=== PATIENT | male | born 1975 ===

== ENCOUNTER 2016-09-27 22:28 | Inpatient (IN) | payer MEDICAID, OTHER ==
[~2016-09-27] VITALS: Ht 182.9 cm; Wt 113.5 kg
[2016-09-27 22:54] VITALS: BP 111/74; PULSE 90; RESP 16; O2SAT 98
[2016-09-27] MEDS ORDERED: LISI10TA PO (22:55)
[2016-09-27] MEDS ORDERED: METF-496 PO (22:55)
[2016-09-27] MEDS ORDERED: BUPR1FIL3 (22:55)
[2016-09-27] MEDS ORDERED: CITA40TA13 PO (22:55)
[2016-09-27] MEDS ORDERED: INSU100V7 SUBQ (22:55)
[2016-09-27] MEDS ORDERED: 0.9% Sodium Chloride 1,000 ML IV SCH (23:39)
[2016-09-27] MEDS ORDERED: Ondansetron 2 mg/mL 2 mL Inj IVPUSH PRN (23:40)
[2016-09-27] MEDS ORDERED: Vancomycin Dose per Pharmacist XX SCH (23:40)
[2016-09-27] MEDS ORDERED: Alum-Mag Hydrox-Simeth 30 mL Suspension PO PRN (23:40)
[2016-09-27] MEDS ORDERED: Polyethylene Glycol (PEG) 17 Gm Powder PO PRN (23:40)
--- NOTE | 2016-09-27 23:46 | NUR ---
Admission Patient admitted to [facility] at 2240 as a transfer from [facility]. A&Ox3, [place], cooperative and appropriate with care. Patient oriented to room, call light, TV, and visiting hours. Admission documentation completed. Patient admitted with infected wounds and cellulitis of left lower extremity. Dressing in place from [facility] on arrival. Wound unwrapped and examined together with Dr. Rosales. Purulent drainage noted on gauze wrapping; patient has had prior amputation of left middle toe. Three current open areas noted on patient's left foot; see detailed documentation in patient flowsheets. Patient admits some reduced sensation in the left toes. Wounds dressed after exam with non adherent pads over the open areas, dry 4x4 gauze, and kerlix wrapping. Patient advised no weight bearing on the left foot. Continue to monitor.
[2016-09-28] VITALS (17 sets, daily range): BP systolic 93–118; BP diastolic 57–76; PULSE 66–98; RESP 14–20; O2SAT 95–100
[2016-09-28] MEDS ORDERED: Glucose 40% Oral Gel 15 Gm Tube PO PRN (00:10)
[2016-09-28] MEDS: 0.9% Sodium Chloride 1,000 ML IV SCH ×3 (00:52→19:39)
[2016-09-28] MEDS: Sodium Chloride LOK Flush 10 mL Syringe IVFLUSH SCH ×3 (00:52→16:30)
--- NOTE | 2016-09-28 00:53 | PCM.HPMED ---
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 Patient noticed a small friction blister on the plantar of his left foot 4 weeks ago, but it was not painful nor bothersome. However, the blister soon turns into a big ulcer and gets progressively worse. He also admits to a sudden onset swelling of the left second toe and ankle after work tonight. There is also a black area at the bottom of his second toe that he just noticed tonight. He only has mild-moderate pain from these. Patient denies fever, chills, nausea, vomiting, or headache. He admits to decreased sensation in the left foot. Patient reports similar symptoms in December 2015 when he was found to have osteomyelitis of the left third toe that required amputation. He works at a [employer] and has his feet wet most of the time. He does not have a PCP and does not know when his last A1c was. He just recently resumed the Lantus. He does not have a PCP and gets his prescription from [facility]. At [facility], patient was found to have an infected left foot and leukocytosis of 25.9. Otherwise, vital signs and labs were stable. Lactic acid. 1.1. XR of the left foot was done. No report available. Patient was given a dose of Zosyn at the ER there and was transferred to [facility] for infected wound and cellulitis of the left foot and lower extremity. Dr. Doll was contacted and will see the patient tomorrow. Review of Systems: A comprehensive review of systems was conducted with the patient and found to be negative except as above in the History of Present Illness. Allergies Coded Allergies: No Known Allergies (Unverified Allergy, 04/11/12) Home Medications Suboxone 8mg-2mg Film Citalopram 40mg daily Lantus 12 unit SQ HS - recently resumed Lisinopril 10mg PO daily - Patient reports to take whenever he remembers. Metformin 1000mg PO daily PMH Reports DM2. Denies HTN or any other medical issues. Surgical History Left third digit amputation by Dr. Park in 12/2015. Skin graft for testicular infection Family History Parents are healthy. All grandparents on both sides had DM. Social History Hx Alcohol Use: No Hx Substance Use: Yes (opiates; clean x1 year) Smoking Status: Never Smoker Living Arrangement: with Family Additional Information Patient works at a [employer] company in [place]. Good social support. Exam Vital Signs Vital Sign - Last Date Time Temp Pulse Resp B/P Pulse Ox O2 Delivery O2 Flow Rate FiO2 09/27/16 22:54 36.8 90 16 111/74 98 Room Air Exam General: No acute distress, well-developed, well-nourished, appropriately interactive HEENT: Normocephalic, atraumatic. External ears without defect. Pupils equal, round, and reactive to light and accommodation. Anicteric sclerae, moist conjunctivae, and no lid lag. Oropharynx free of erythema and cobble stoning with moist mucosa. Neck: Supple with full range of motion. No jugular venous distension. No bruits. No lymphadenopathy or thyromegaly. Cardiovascular: Regular rate and rhythm with no murmurs, rubs, or gallops appreciated Pulmonary: Clear to auscultation bilaterally with no crackles, wheezes, or rhonchi. Normal respiratory effort with no use of accessory muscles. Abdomen: Bowel tones present. Soft, nontender, nondistended. No hepatosplenomegaly or masses appreciated. Left lower extremity: Purulent, foul smelling drainage noted on gauze wrapping. Prior amputation of left middle toe. Large open ulcer, approximately 3.5cm length x 2cm width, at the plantar side of the 2nd-3rd metartarsal phalangeal joints. Small round raw area on the 1st MTP joint. On the dorsal side, there is necrotic tissue at the bottom of the second digit with severe swelling. Moderate nonpitting edema at the ankle. Large, warm erythematous patch at the anterior valentine. All the wounds are only mildly painful to the patient due to reduced sensation in the left lower extremity. Right LE: normal exam. Neurological: Cranial nerves grossly intact. Normal muscle strength, tone, and bulk. Reflexes, coordination, and sensory function within normal limits. Psychiatric: Normal mood and affect. Alert and oriented to person, place, and time. 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 1. Infected ulcer and cellulitis of the left foot, acute, present on admission, active. - Patient has leukocytosis of 25.9, but does not meet SIRS/sepsis criteria. Lactic acid 1.1. - Blood and wound cultures were collected at [facility]. Results pending. - Wound culture in 12/2015 was positive for MRSA. - Will continue Zosyn and add Vanco, dosing per pharmacy. - Consider consulting infectious disease for antibiotic guidance in the morning. - Continue to monitor vital signs and labs. 2. Possible osteomyelitis of the second digit of the left foot, acute, present on admission, active. - Dr. Doll was consulted and will see the patient in the morning. - NPO after midnight for possible surgery tomorrow. - IVF with NS at 100mls/hr. - No weight bearing on the left foot. - Pending XR report from [facility]. - Treat the infection with Zosyn and Vanco. 3. Diabetes Mellitus, Type 2, with peripheral nephropathy. Uncontrolled. Chronic. - Last A1c of 9.8 in 12/2015. Check A1c tomorrow. - Likely due to medication and diet noncompliance. - Hold home Metformin. - Medium correctional scale in the hospital. - Resume home Lantus 12 units HS. 4. Acute Kidney Injury, present on admission, active. - BUN 21 and Cr of 1.17. - IV fluid as above. - Avoid nephrotoxic med. - Hold home Lisinopril, which patient takes for renal protection. No history of HTN. 5. History of opioid abuse, presume stable. - Convert home Suboxone to Subutex. 6. Anxiety, chronic, presume stable. - Resume home Citalopram. CODE STATUS: FULL CODE Patient is admitted under inpatient status with expected length of stay greater than 2 midnights due to severity of presenting symptoms, risk of adverse event, and complexity of treatment plan. Pain Evaluation: Adequate Pain Control GI Prophylaxis: H2 rikc VTE Prophylaxis: SCDs Resuscitation Status: CPR: Attempt Resuscitation Attending Statement The patient was seen and examined together with Dr. Rosales on 09/27 and I agree with the history, exam and plan as outlined in the note above. Silvia Rosales DO Sep 28, 2016 00:53 Chase Downs MD Sep 28, 2016 03:42
[2016-09-28] MEDS ORDERED: Vancomycin Inj 2,000 MG in 0.9% Sodium Chloride 500 ML IV ONE (00:55)
[2016-09-28] MEDS: Piperacillin-Tazo 3.375 Gm Inj 3.375 GM in Dextrose 5% Minibag Plus 50 ML IV SCH ×3 (03:58→17:55)
--- NOTE | 2016-09-28 04:13 | PCM.CONPHA ---
Subjective Date of Service: Sep 28, 2016 Requesting Provider: Silvia Rosales DO Left foot ulcer Reason for Pharmacy Consult: Vancomycin Dosing Objective Vital Signs Date Time Temp Pulse Resp B/P Pulse Ox O2 Delivery O2 Flow Rate FiO2 09/27/16 22:54 36.8 90 16 111/74 98 Room Air Weight (Kilograms): 113.500 Height (Feet): 6 Height (Inches): 0.00 Assessment/Plan Assessment/Plan A: * Vancomycin dosing by pharmacy for 40 y/o diabetic man with left foot ulcer and cellulitis with possible osteomyelitis * He is also being started on Zosyn * Estimated CrCl is 110 mL/min (Cockcroft & Gault using AdjBW) based on SCr of 1.17 mg/dL on records from [facility] * Estimated vancomycin half-life is 7 hours and estimated vancomycin Vd is 79 liters P: * Gave the patient a vancomycin loading dose of 2000 mg IV once * Continue with vancomycin 1250 mg IV every 8 hours * Target a trough range of 15 - 20 mcg/mL * Drawing a trough level prior to the fourth dose Thank you. Pharmacy will continue to follow this patient. Connie Jaeger, PharmD Connie Jaeger Sep 28, 2016 04:13
[2016-09-28 05:21] LABS: BASOPHILS % (AUTO) 0.3 % (0-3); EOSINOPHILS % (AUTO) 2.8 % (0-5); MONOCYTES % (AUTO) 7.8 % (4-12); Mean Corpuscular Hemoglobin 25.1 pg (27.0-35.0); Mean Corpuscular Volume 76.4 fL (81-100); NEUTROPHILS % (AUTO) 77.3 % (40-74); Platelet Count 358 bil/L (150-400)
[2016-09-28] MEDS ORDERED: Propofol 10,000 mCg/mL 20 mL Inj ONE (06:58)
[2016-09-28] MEDS: Insulin LISPRO 300 Unit/3 mL Inj SUBQ SCH ×4 (08:00→22:52)
--- NOTE | 2016-09-28 08:00 | NUR ---
Meds held PO am meds held per Dr Doll order. pt NPO for procedure this am.
--- NOTE | 2016-09-28 08:11 | PCM.CHPPOD ---
Subjective Date of service Sep 28, 2016 History of Present Illness Patient reports a blister starting on the left foot 4 weeks ago, turning into an ulcer. Suddenly, 2 days ago, the swelling and odor started, spreading redness quickly up his left leg. He had fevers and nausea, presented to the ED at [facility] last night. They took Xrays, saw gas in the tissue, sent him over for a transfer and informed me that the patient will likely need surgical intervention. He states he feels better this morning, but has anxiety over losing more of his foot, since he lost his left 3rd toe due to osteomyelitis last December. Allergy Allergies: Coded Allergies: No Known Allergies (Unverified Allergy, 04/11/12) Medications Buprenorphine HCl/Naloxone HCl (Suboxone 8 mg-2 mg Sl Film) 1 Each Film Citalopram (Citalopram) 40 Mg Tablet 40 MG PO DAILY Insulin Glargine (Lantus U100 Insulin Vial) 100 Unit/Ml Vial 12 UNIT SUBQ HS Lisinopril (Lisinopril) 10 Mg Tablet 10 MG PO DAILY Metformin ER (Metformin ER) 1,000 Mg Tablet 1,000 MG PO DAILY Past Medical History Surgeries: Yes (toe amputation) Medical History: (1) Cellulitis and abscess (2) Chronic ulcer of left foot with necrosis of muscle (3) Diabetes mellitus type 2, uncontrolled, with complications Surgical History: Social History Hx Alcohol Use: No Hx Substance Use: Yes (opiates; clean x1 year) Smoking Status: Never Smoker Podiatry Consult Exam Vital Signs Vital Sign - Last Date Time Temp Pulse Resp B/P Pulse Ox O2 Delivery O2 Flow Rate FiO2 09/28/16 05:55 83 09/28/16 04:37 36.4 16 103/66 98 Room Air Intake and Output 09/27/16 09/27/16 09/28/16 Cumulative From/Thru 15:00 23:00 07:00 09/27/16 22:53 - 09/28/16 05:26 Intake Total 137 ml 137 ml Output Total 1000 ml 1000 ml Balance -863 ml -863 ml Intake Oral 137 ml 137 ml Output Urine Total 1000 ml 1000 ml Result Diagram: 09/28/16 0506 09/28/16 0506 Lab Test 09/28/16 05:06 White Blood Count 18.8th/mm3 (3.8-10.1) Red Blood Count 3.86mil/mm3 (4.40-5.80) Hemoglobin 9.7g/dL (13.8-17.2) Hematocrit 29.5% (41.0-50.0) Mean Corpuscular Volume 76.4fL (81-100) Mean Corpuscular Hemoglobin 25.1pg (27.0-35.0) Mean Corpuscular Hemoglobin Concent 32.9% (32.0-37.0) Red Cell Distribution Width 14.3% (12.3-15.4) Platelet Count 358bil/L (150-400) Neutrophils (%) (Auto) 77.3% (40-74) Lymphocytes (%) (Auto) 11.4% (14-46) Monocytes (%) (Auto) 7.8% (4-12) Eosinophils (%) (Auto) 2.8% (0-5) Basophils (%) (Auto) 0.3% (0-3) Sodium Level 133mEq/L (134-144) Potassium Level 4.1mEq/L (3.5-5.2) Chloride Level 101mEq/L (97-108) Carbon Dioxide Level 22mmol/L (18-29) Blood Urea Nitrogen 14mg/dL (6-20) Creatinine 0.76mg/dL (0.76-1.27) Estimat Glomerular Filtration Rate 121mL/min (>59) Glucose Level 198mg/dL (60-99) Lactic Acid Level 0.8mmol/L (0.4-2.0) Calcium Level 8.0mg/dL (8.5-10.1) Total Bilirubin 0.3mg/dL (0.0-1.2) Aspartate Amino Transf (AST/SGOT) 14U/L (0-50) Alanine Aminotransferase (ALT/SGPT) 14U/L (0-44) Alkaline Phosphatase 89U/L (25-150) Total Protein 7.3g/dL (6.4-8.4) Albumin 2.9g/dL (3.4-5.0) Procalcitonin 1.16ng/mL (0.00-0.08) Exam Lower Extremities: Left: Edema localized (lower leg and foot) Lower Extremity Pulses: Palpable: Left Dorsalis Pedis Left Posterior Tibal Right Dorsalis Pedis Right Posterior Tibal Podiatry WOUND : Wound Location/Description Two ulcerations on the plantar aspect of the left forefoot, 1st and 2nd metatarsal heads. 2nd met head ulcer probes through 1st webspace to dorsum with jenise wet gangrene at that level. Moderate malodor. The 2nd toe appears dorsally subluxed. Distal digit has delayed cap refill. Right distal 2nd toe ulcer is dry with periwound erythema. The toe is longer than adjacent toes with an avulsed toenail. Assessment & Plan Problems: (1) Cellulitis and abscess Plan: Patient has been NPO since midnight. I have consented him to incision and drainage, debridement of soft tissue and bone, possible 2nd toe amputation in the operating room today. This will be a 2-stage procedure. After today's I&D , there may be more to be done in 2-3 days, depending on tissue response. He states understanding. He is neuropathic. We will try to do this procedure with local and sedation. Status: Acute ICD Code: L03.90 (2) Diabetes mellitus type 2, uncontrolled, with complications Plan: Patient's limb salvage prognosis is poor due to inconsistent compliance with diabetes management. Future complications are extremely likely. His right 2nd toe has had a chronic ulcer for a long time. A partial amputation of that digit may be necessary as a preventive measure. I will make sure to order Xrays and decide if that will be addressed during the second stage of debridement on left foot. Status: Acute ICD Code: E11.8 VTE Prophylaxis: Glenys Dickens DPM Sep 28, 2016 08:11
[2016-09-28] MEDS ORDERED: Buprenorphine 2 mg SL Tablet SL SCH (08:30)
[2016-09-28] MEDS ORDERED: Lactated Ringer's 500 ML IV PRN (09:04)
[2016-09-28] MEDS ORDERED: Lactated Ringer's 1,000 ML IV SCH (09:04)
--- NOTE | 2016-09-28 09:04 | PCM.HPANE ---
Patient Data Surgeon Admitting Provider:Chase Downs MD Attending Provider:Chase Downs MD Primary Care Physician:Shiv Bruno MD Other Provider: Reason for Visit Left Foot Wound Ht/WT & BMI Height (Feet): 6 Height (Inches): 0.00 Weight (Kilograms): 113.500 Body Mass Index 33.89 Allergies Coded Allergies: No Known Allergies (Unverified Allergy, 04/11/12) Past Anesthesia History Anesthesia History: Denies:: Anesthesia Reactions Diabetes History Hx Diabetes?: Yes Current Bedside Blood Glucose: 157 MRSA MRSA: No Medications Hypertension Medication: Yes Home Meds Incl Beta Donaldo: No Reported Medications Insulin Glargine (Lantus U100 Insulin Vial)100 Unit/Ml Vial12 Unit SUBQ HS #1 VIAL Ref 0 09/27/16 Metformin ER 1,000 Mg Tablet1,000 Mg PO DAILY Ref 0 09/27/16 Lisinopril 10 Mg [id number] Mg PO DAILY 30 Days Ref 0 09/27/16 Citalopram 40 Mg [id number] Mg PO DAILY 30 Days Ref 0 09/27/16 Buprenorphine HCl/Naloxone HCl (Suboxone 8 mg-2 mg Sl Film)1 Each Film #7 09/27/16 History History of ENT Problems?: No Hx of Heart Problems?: Yes Cardiovascular History: Positive for:: Hypertension Denies:: Cardiac Surgery Chest Pain Congestive Heart Failure Edema Heart Murmur Irregular Heartbeat Pacemaker Thrombophlebitis Hx of Respiratory Problem?: No Hx Neurologic Problems?: No Hx of GI Problems?: No Hx of Problems?: No Male Hx: Denies:: Prostate Problems Scrotal Mass Testicular Surgery Other Skin Pertinent History: diabetic ulcers on feet; left foot current admission. Left middle toe amputated for prior wound. Hx Musculoskeletal Problems?: No Hx of Psycho/Social Problems?: Yes Psycho Social History: Positive for:: Anxiety Denies:: Bipolar Disorder Hx Depression Suicide Attempt Hx Surgeries?: Yes (toe amputation) Hx Any Other Health Problems?: Yes Other History: Positive for:: Hospitalization (toe amputation, diabetes; cellulitis of testicles) Denies:: Cancer Thyroid Disease History Blood Transfusions: Positive for:: Accept Blood Products? Denies:: Blood Transfuse Reaction Blood Transfusions Hx Diabetes: YesBedside Blood Glucose: 157 Hx Alcohol Use: NoHx Substance Use: Yes (opiates; clean x1 year) Smoking Status: Never Smoker Stop/Bang Treated for Sleep Apnea?: No Do You Have a CPAP Machine?: No S-Snoring: Do You Snore Loudly: No T-Tired: feel tired, fatigued: No O-Obsered: Observed not breath: No P-Blood Pressure: treated: Yes B- Body Mass Index > 35 kg/m2: No A- Age over 50: No N- Neck Large Circumference: No G- Gender Male: Yes LIDYA Total Score: 2 LIDYA Risk Assessment: Low Risk, <3 Yes Risk Assessment Category Category 1A: Patient has history of documented sleep apnea, and HAS NOT received any narcotic, sedative or anesthesia administration during this stay. Category 1B: Patient has history of documented sleep apnea, and HAS received any narcotic , sedative or anesthesia administration during this stay Category 2: Patient has SUSPECTED Obstructive Sleep Apnea, and HAS received any narcotic , sedative or anesthesia administration during this stay. Category 3: Patient has SUSPECTED Obstructive Sleep Apnea and HAS NOT received narcotic, sedative or anesthesia administration during this stay. Category 4: Outpatient in Procedural Areas with known sleep apnea or who screen positive for High Risk via the STOP/BANG questionnaire. Exam Exam Vital Signs Vital Signs Date Time Temp Pulse Resp B/P Pulse Ox O2 Delivery O2 Flow Rate FiO2 09/28/16 08:44 36.4 82 18 118/68 100 Room Air 09/28/16 05:55 83 09/28/16 04:37 36.4 77 16 103/66 98 Room Air General Appearance: Oriented X3 HEENT/AIRWAY: MP 2 Lungs: Normal Air Movement Heart: Regular Rate/Rhythm Meds/Labs/Diagnostics Admission Meds Current Medications Piperacillin Sod/ Tazobactam Sod 3.375 gm/Dextrose/ Water 50 ml @ 12.5 mls/hr Q8 IV Last administered on 09/28/16 08:44; Start 09/28/16 at 01:00 Sodium Chloride (Normal Saline) 1,000 ml @ 100 mls/hr Q10H IV Last administered on 09/28/16 00:52; Start 09/27/16 at 23:39 Sodium Chloride 10 ml 10 ml MELECIO IVFLUSH Last administered on 09/28/16 00:52; Start 09/28/16 at 00:30 Vancomycin HCl/ Sodium Chloride (Vancocin Inj/ Normal Saline) 500 ml @ 250 mls/ hr OT ONCE IV Last administered on 09/28/16t 01:33; Start 09/28/16 at 00:55; Stop 09/28/16 at 02:54; Status DC Bedside Blood Glucose: 157 Labs Test 09/28/16 05:06 White Blood Count 18.8th/mm3 (3.8-10.1) Red Blood Count 3.86mil/mm3 (4.40-5.80) Hemoglobin 9.7g/dL (13.8-17.2) Hematocrit 29.5% (41.0-50.0) Mean Corpuscular Volume 76.4fL (81-100) Mean Corpuscular Hemoglobin 25.1pg (27.0-35.0) Mean Corpuscular Hemoglobin Concent 32.9% (32.0-37.0) Red Cell Distribution Width 14.3% (12.3-15.4) Platelet Count 358bil/L (150-400) Neutrophils (%) (Auto) 77.3% (40-74) Lymphocytes (%) (Auto) 11.4% (14-46) Monocytes (%) (Auto) 7.8% (4-12) Eosinophils (%) (Auto) 2.8% (0-5) Basophils (%) (Auto) 0.3% (0-3) Sodium Level 133mEq/L (134-144) Potassium Level 4.1mEq/L (3.5-5.2) Chloride Level 101mEq/L (97-108) Carbon Dioxide Level 22mmol/L (18-29) Blood Urea Nitrogen 14mg/dL (6-20) Creatinine 0.76mg/dL (0.76-1.27) Estimat Glomerular Filtration Rate 121mL/min (>59) Glucose Level 198mg/dL (60-99) Lactic Acid Level 0.8mmol/L (0.4-2.0) Calcium Level 8.0mg/dL (8.5-10.1) Total Bilirubin 0.3mg/dL (0.0-1.2) Aspartate Amino Transf (AST/SGOT) 14U/L (0-50) Alanine Aminotransferase (ALT/SGPT) 14U/L (0-44) Alkaline Phosphatase 89U/L (25-150) Total Protein 7.3g/dL (6.4-8.4) Albumin 2.9g/dL (3.4-5.0) Procalcitonin 1.16ng/mL (0.00-0.08) Plan Impression Patient chart reviewed, patient interviewed and anesthestic plan with risks, benefits, and alternatives discussed, and informed consent obtained. ASA Physical Status: ASA3 Severe Disease Anesthetic Plan: GA Bene/Risks/Altern/Consents: Yes HP Complete Prior to Induction: Yes Javier Kovacs MD Sep 28, 2016 09:04
[2016-09-28] MEDS ORDERED: Labetalol 5 mg/mL 4 mL Inj IV PRN (09:05)
[2016-09-28] MEDS ORDERED: MetoCLOpramide 5 mg/mL 2 mL Inj IVPUSH PRN (09:05)
[2016-09-28] MEDS ORDERED: fentaNYL-PF 50 mCg/mL 2 mL Inj IVPUSH PRN (09:05)
[2016-09-28] MEDS ORDERED: Phenylephrine 10,000 mCg/mL Inj IVPUSH PRN (09:05)
[2016-09-28] MEDS ORDERED: EPHEDrine Sulfate 50 mg/mL Inj IVPUSH PRN (09:05)
[2016-09-28] MEDS ORDERED: HYDROmorphone 1 mg/mL Inj IVPUSH PRN (09:05)
[2016-09-28] MEDS ORDERED: Ondansetron 2 mg/mL 2 mL Inj IVPUSH PRN (09:05)
[2016-09-28] MEDS ORDERED: Dexamethasone 4 mg/mL Inj IVPUSH PRN (09:05)
[2016-09-28] MEDS ORDERED: Lactated Ringer's 1,000 ML IV ONE (09:12)
[2016-09-28] MEDS ORDERED: Lidocaine 1% 50 mL Inj INFILTRATE ONE (09:22)
[2016-09-28] MEDS ORDERED: Gentamicin 40 mg/mL 2 mL Inj IRRIGATION ONE (09:41)
--- NOTE | 2016-09-28 10:02 | PCM.PODPO ---
Podiatry Operative Report Date of Service: Sep 28, 2016 Date of Service Sep 28, 2016 Pre Operative Diagnosis Cellulitis and abscess, left foot Post Operative Diagnosis Wet gangrene, left foot with full necrosis of 2nd toe medial vasculature and plantar ligamentous support structures. Procedure Open amputation, left 2nd toe, at metatarsophalangeal joint and wide debridement of dorsal and plantar soft tissue. Surgeon Surgeon: Glenys Doll DPM Assistants: None Indication for Procedure Gangrene, ascending necrosis, left foot Findings Gas gangrene, medial 1st interspace necrosis and vessel thrombosis, left foot. Unclear demarcation. All resected margins bled well. Details of Procedure Patient was identified in preop holding area and brought to the operating room. He was placed on the operating table in supine position. The timeout protocol was completed, left foot anesthetized with lidocaine plain, then prepped and draped in the usual aseptic manner. The 2nd toe was found to be necrotic medially and proximally, as well as through the 1st intermetatarsal space. A linear incision was made from the base of the toe, dorsally and proximally, bubbly purulent fluid encountered with significant odor. The incision was carried proximally until the purulence and medial necrosis became bleeding tissue. Suction was used distally to follow the area of soft tissue destruction from the dorsum of the toe, through the interspace and encompassing the plantar ulceration under the 2nd metatarsal head. The plantar plate was already ruptured , medial collateral ligaments of the metatarsophalangeal joint were necrotic. The 2nd metatarsal head cartilage cap appeared healthy. Excision of all necrotic skin, soft tissue, tendon, and capsule was done at the level of the 2nd metatarsal head. All thrombosed vessels were excised. The wound was irrigated with normal saline with gentamicin. The wound was cauterized where active bleeding was present, then packed with Iodoform gauze, dressed with 4x4 gauze, Kerlix, ABD pad, and Juanjo wrap. The patient tolerated the anesthesia and procedure well. He was transported to the recovery room with vital signs stable and vascular status to left foot intact. Grafts, Implants: None Complications There were no periprocedural complications identified. Condition Stable Anesthetic Administered: MAC Drains: None Catheters: None Output, Estimated Blood Loss: 20 (ml) Blood Admin during surgery: No Surgical Cast or Splint: None Surgical Specimen Removed: Yes Specimen sent to Pathology: Yes Surgical Specimen description: 2nd toe to pathology, soft tissue for culture. Post Operative Plan Nonweightbearing, left foot. Bedrest. 2nd stage of debridement and partial closure in 2-3 days. Expect hospital stay and IV antibiotics for 1 week. Gauge outpatient antibiotic treatment based on findings in next 2-3 days. Glenys Doll DPM Sep 28, 2016 10:02
--- NOTE | 2016-09-28 10:19 | PCM.ANEP1 ---
Post Anesthesia Phase 1 PACU Phase 1 Assessment Date of Service: Sep 28, 2016 Vital Signs Vital Signs Date Time Temp Pulse Resp B/P Pulse Ox O2 Delivery O2 Flow Rate FiO2 09/28/16 09:55 36.0 78 14 117/74 95 Room Air 09/28/16 08:44 36.4 82 18 118/68 100 Room Air 09/28/16 05:55 83 09/28/16 04:37 36.4 77 16 103/66 98 Room Air Anesthetic Administered: MAC Level of Alertness: Awake, talking Pain: No Nausea or Vomiting: No Oxygen Delivery: Room Air Lungs: Normal Air Movement Javier Kovacs MD Sep 28, 2016 10:19
--- NOTE | 2016-09-28 10:20 | PCM.ANEP2 ---
Post Anesthesia Evaluation ASA/CMS Post Anesthesia VS in Patient's Normal Range?: Yes Resp Stable; Airway Patent?: Yes CV Function & Hydration Stable: Yes Mental Status Recovered?: Yes Pain control Satisfactory?: Yes N/V Control Satisfactory?: Yes Javier Kovacs MD Sep 28, 2016 10:20
--- NOTE | 2016-09-28 11:53 | NUR ---
Social Work: Screen D: Per EMR review, pt is a 40 year old male admitted for Left Foot Wound. Pt is [facility] Medicaid with [facility]. Pt does not have a PCP but is insterested in an [facility] Appointment- Pt provided with phone number to call on Friday in case discharged over the weekend. NOK is pt's father, Acosta Brown. Advanced directives not completed- information declined. Readmit score not entered at this time. EMR reviewed; pt lives in [place] with family. 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 Pt uses no DME and is I. Pt has a history of IV heroin use and is currently on Suboxone. [employer] M[employer] TECHNICIAN met with pt at bedside to discuss discharge planning. Pt expresses no concerns about discharge home. Pt states he has been sober from heroin for over a year and gets Suboxone prescribed from [facility] in [facility]. His counselor is Tres Laboy who is also through [facility]. He has an appointment the first week of October. Pt declined community resources from [employer] TECHNICIAN stating he is already connected with the services he requires. Pt denies any MH history including suicidal or homicidal ideation, current or past. A: Pt who is I at baseline. P: anticipate pt to discharge home via POV; BL[employer] M[employer] TECHNICIAN to r/o DME needs prior to d/c. STACEY Reyna
[2016-09-28] MEDS: Vancomycin Inj 1,250 MG in 0.9% Sodium Chloride 250 ML IV SCH ×2 (13:04→22:21)
--- NOTE | 2016-09-28 14:27 | DRSVH ---
PROCEDURE: X-RAY RIGHT FOOT COMPLETE, MINIMUM THREE VIEWS ([id number]) INDICATIONS: Chronic ulcer, tip of 2nd toe, possible osteo TECHNIQUE: 3 views of the foot were acquired. COMPARISON: None. FINDINGS: Bones: There are erosive changes along the distal cortex of the 2nd distal phalanx with associated m ild lucency consistent with osteomyelitis. There is bony irregularity medially at the base of the 2n d proximal phalanx likely representing sequela of prior trauma. Soft tissues: There is a soft tissue ulcer distally in the 2nd toe. IMPRESSION: 1. Erosive changes in the 2nd distal phalanx consistent with osteomyelitis associated with a soft ti ssue ulcer distally. Dictated by: Shiv Nicole M.D. on 09/28/2016 at 14:23 Approved by: Shiv Nicole M.D. on 09/28/2016 at 14:24
--- NOTE | 2016-09-28 14:28 | DRSVH ---
PROCEDURE: X-RAY LEFT FOOT COMPLETE, MINIMUM THREE VIEWS ([id number]) INDICATIONS: Postop exam TECHNIQUE: 3 views of the foot were acquired. COMPARISON: [facility], CR, XR FOOT 3VW LT, 11/06/2015, 13:54. FINDINGS: Bones: There are postsurgical changes status post amputation of the 2nd and 3rd toes at the level of the metatarsophalangeal joints. No acute fractures. Soft tissues: There is soft tissue swelling at the forefoot and well as packing material demonstrated in the surgical bed. IMPRESSION: 1. Postsurgical changes status post amputation of the 2nd and 3rd toes. Dictated by: Shiv Nicole M.D. on 09/28/2016 at 14:25 Approved by: Shiv Nicole M.D. on 09/28/2016 at 14:26
--- NOTE | 2016-09-28 18:52 | PCM.PNMED ---
Subjective Date of Service Sep 28, 2016 Subjective This morning patient states he is feeling fine. Has no complaints other than the pain in his foot only when it is touched. Denies shortness of breath, lightheadedness, dizziness, fevers, chills. Exam Vital Signs Vital Sign - Last Date Time Temp Pulse Resp B/P Pulse Ox O2 Delivery O2 Flow Rate FiO2 09/28/16 16:44 36.6 98 18 107/69 98 Room Air Intake and Output 09/27/16 09/27/16 09/28/16 Cumulative From/Thru 15:00 23:00 07:00 09/27/16 22:53 - 09/28/16 05:26 Intake Total 137 ml 137 ml Output Total 1000 ml 1000 ml Balance -863 ml -863 ml Intake Oral 137 ml 137 ml Output Urine Total 1000 ml 1000 ml Exam General: No acute distress, well-developed, well-nourished, appropriately interactive HEENT: Normocephalic, atraumatic. External ears without defect. Pupils equal, round, and reactive to light and accommodation. Anicteric sclerae, moist conjunctivae, and no lid lag. Oropharynx free of erythema and cobble stoning with moist mucosa. Neck: Supple with full range of motion. No jugular venous distension. No bruits. No lymphadenopathy or thyromegaly. Cardiovascular: Regular rate and rhythm with no murmurs, rubs, or gallops appreciated Pulmonary: Clear to auscultation bilaterally with no crackles, wheezes, or rhonchi. Normal respiratory effort with no use of accessory muscles. Abdomen: Bowel tones present. Soft, nontender, nondistended. No hepatosplenomegaly or masses appreciated. Extremities: There is surgical bandage on the left lower extremity, calf is remained exposed, there is outline demarcating cellulitic process, but has remained uncrossed. Right LE: normal exam. Neurological: Cranial nerves grossly intact. Normal muscle strength, tone, and bulk. Reflexes, coordination, and sensory function within normal limits. Psychiatric: Normal mood and affect. Alert and oriented to person, place, and time. Lab and Diagnostics Result Diagram: 09/28/16 0506 09/28/16 0506 X-Rays, CTs and MRIs Pre-and post operative x-rays left lower extremity. IMPRESSION: 1. Postsurgical changes status post amputation of the 2nd and 3rd toes. Dictated by: Sihv Nicole M.D. on 09/28/2016 at 14:25 IMPRESSION: 1. Erosive changes in the 2nd distal phalanx consistent with osteomyelitis associated with a soft tissue ulcer distally. Dictated by: Shiv Nicole M.D. 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 Status post left lower extremity second digit amputation 09/28/2016. 1. Infected ulcer and cellulitis of the left foot, acute, present on admission, active. - Patient has leukocytosis of 25.9, but does not meet SIRS/sepsis criteria. Lactic acid 1.1. - Blood and wound cultures were collected at [facility] [place]. Results pending. - Wound culture in 12/2015 was positive for MRSA. - Will continue Zosyn and add Vanco, dosing per pharmacy. - Consider consulting infectious disease for antibiotic guidance should cellulitis signs of infection not improve - Continue to monitor vital signs and labs. 2. Wet gangrene of the second digit of the left foot, full necrosis, vessel thrombosis. Acute, present on admission. - Dr. Doll performed amputation 09/28/2016, revisit operating room in 2-3 days for secondary debridement, anticipate one week IV antibiotics. - IVF with NS at 100mls/hr. - No weight bearing on the left foot. - Treat the infection with Zosyn and Vanco. 3. Diabetes Mellitus, Type 2, with peripheral nephropathy. Uncontrolled. Chronic. - Last A1c of 9.8 in 12/2015. A1c Pending. - Likely due to medication and diet noncompliance. - Hold home Metformin. - Medium correctional scale in the hospital. - Resume home Lantus 12 units HS. 4. Acute Kidney Injury, present on admission, resolved - BUN and creatinine have returned to baseline. - IV fluid as above. - Restart home Lisinopril, which patient takes for renal protection. No history of HTN. 5. History of opioid abuse, presume stable. - Convert home Suboxone to Subutex. -Increased from 8 mg to 12 mg for postop pain coverage. -Avoid opioid analgesics 6. Anxiety, chronic, presume stable. - Resume home Citalopram. CODE STATUS: FULL CODE Patient is admitted under inpatient status with expected length of stay greater than 2 midnights due to severity of presenting symptoms, risk of adverse event, and complexity of treatment plan. Pain Evaluation: Adequate Pain Control GI Prophylaxis: H2 rick VTE Prophylaxis: SCDs VTE Mechanical Devices: Intermittant Pneumatic CD Resuscitation Status: CPR: Attempt Resuscitation Attending Statement The patient was seen and examined together with Dr. Barton on 09/28/2016 and I agree with the history, exam and plan as outlined in the note above. . Az Barton DO Sep 28, 2016 18:52 Joey Miramontes MD Sep 29, 2016 17:59
--- NOTE | 2016-09-28 19:14 | NUR ---
Left foot pain Pt complaining of pain after surgery wanting his Subutex. Scheduled Subutex given after procedure. through the day pt stating "i'm okay" when asked about pain in foot. Ongoing care.
[2016-09-28] MEDS: Insulin GLARgine 100 Unit/mL Syringe SUBQ SCH (22:50)
[2016-09-29] MEDS: Sodium Chloride LOK Flush 10 mL Syringe IVFLUSH SCH ×3 (00:30→16:30)
[2016-09-29] MEDS ORDERED: Vancomycin Serum Trough XX ONE (01:30)
[2016-09-29] MEDS: Piperacillin-Tazo 3.375 Gm Inj 3.375 GM in Dextrose 5% Minibag Plus 50 ML IV SCH ×3 (02:33→17:07)
--- NOTE | 2016-09-29 02:40 | NUR ---
Culture Results from [facility] [place] from [facility] [place] Re: patient's blood cultures and wound culture done prior to his transfer yesterday. Blood cultures showed no growth x2 at 24 hours. Wound culture from left foot wound showed moderate growth of Strep B.
[2016-09-29] MEDS ORDERED: Vancomycin Inj 1,500 MG in 0.9% Sodium Chloride 500 ML IV SCH (03:00)
[2016-09-29] MEDS: 0.9% Sodium Chloride 1,000 ML IV SCH ×2 (03:04→15:39)
--- NOTE | 2016-09-29 03:24 | PCM.PHAPRO ---
Progress Date of Service: Sep 29, 2016 Vancomycin dosing by pharmacy for 40 y/o diabetic man with left foot ulcer and cellulitis O: * He was receiving vancomycin 1250 mg IV every 8 hours * Vancomycin level of 11.8 mcg/mL prior to the fourth dose * The two doses prior to the trough were given later than scheduled * SCr of 0.76 mg/dL on 09/28 * UOP of 2050 mL on 09/28 * Cultures pending A: * The true trough at the current vancomycin dose would be lower than 11.8 mcg/ mL as preceding doses were given late * SCr has improved * The patient is clearing vancomycin better than originally anticipated P: * Increase vancomycin dose to 1500 mg every 8 hours * Continue targeting vancomycin trough range of 15 - 20 mcg/mL for now * Draw another trough level after 4 doses Thank you. Pharmacy will continue to follow. Connie Jaeger, PharmD Connie Jaeger Sep 29, 2016 03:23
[2016-09-29 04:07] VITALS: BP 125/71; PULSE 65; RESP 18; O2SAT 98
[2016-09-29 05:45] LABS: BASOPHILS % (AUTO) 0.5 % (0-3); EOSINOPHILS % (AUTO) 4.4 % (0-5); MONOCYTES % (AUTO) 8.6 % (4-12); Mean Corpuscular Hemoglobin 24.4 pg (27.0-35.0); Mean Corpuscular Volume 76.1 fL (81-100); NEUTROPHILS % (AUTO) 63.6 % (40-74); Platelet Count 379 bil/L (150-400)
[2016-09-29] MEDS: Vancomycin Inj 1,500 MG in 0.9% Sodium Chloride 500 ML IV SCH ×3 (06:28→21:32)
[2016-09-29] MEDS: Insulin LISPRO 300 Unit/3 mL Inj SUBQ SCH ×3 (08:41→22:00)
[2016-09-29] MEDS: Buprenorphine 2 mg SL Tablet SL SCH (08:42)
[2016-09-29 08:52] VITALS: BP 120/83; PULSE 75; RESP 18; O2SAT 99
[2016-09-29] MEDS ORDERED: Glucose 40% Oral Gel 15 Gm Tube PO PRN (12:30)
--- NOTE | 2016-09-29 15:45 | PCM.PNPOD ---
Subjective Date of Service: Sep 29, 2016 Visit Information: Reason for Visit Left Foot Wound Surgery/Surgery Date: Open 2nd toe amputation at MTPJ level with planned 2nd stage in 2-3 days Post-Op Day # 1 Date of Admission: Sep 27, 2016 at 22:45 Subjective: Patient seen at bedside, resting comfortably. No complaints. He has been using a handheld urinal at bedside, staying off of his left foot. Gastrointestinal: Good Appetite Pain Management: PO, Good Pain Control Neurological: Numbness (peripheral neuropathy at baseline) Objective Vital Sign - Last Date Time Temp Pulse Resp B/P Pulse Ox O2 Delivery O2 Flow Rate FiO2 09/29/16 08:52 36.7 75 18 120/83 99 Room Air Intake and Output 09/28/16 09/28/16 09/29/16 Cumulative From/Thru 15:00 23:00 07:00 09/27/16 22:53 - 09/29/16 06:30 Intake Total 100 ml 1903 ml 1325 ml 3465 ml Output Total 40 ml 1350 ml 1200 ml 3590 ml Balance 60 ml 553 ml 125 ml -125 ml Intake Oral 500 ml 400 ml 1037 ml IV Total 100 ml 1403 ml 925 ml 2428 ml Output Urine Total 1350 ml 1200 ml 3550 ml Estimated Blood Loss 40 ml 40 ml Result Diagram: 09/29/16 0500 09/29/16 0500 Lab Test 09/28/16 05:06 09/29/16 01:30 09/29/16 05:00 Hemoglobin A1c 8.9% (4.8-5.6) Lactic Acid Level 0.8mmol/L (0.4-2.0) Total Bilirubin 0.3mg/dL (0.0-1.2) Aspartate Amino Transf (AST/SGOT) 14U/L (0-50) Alanine Aminotransferase (ALT/SGPT) 14U/L (0-44) Alkaline Phosphatase 89U/L (25-150) Total Protein 7.3g/dL (6.4-8.4) Albumin 2.9g/dL (3.4-5.0) Procalcitonin 1.16ng/mL (0.00-0.08) Vancomycin Level Trough 11.8mcg/mL White Blood Count 8.8th/mm3 (3.8-10.1) Red Blood Count 3.97mil/mm3 (4.40-5.80) Hemoglobin 9.7g/dL (13.8-17.2) Hematocrit 30.2% (41.0-50.0) Mean Corpuscular Volume 76.1fL (81-100) Mean Corpuscular Hemoglobin 24.4pg (27.0-35.0) Mean Corpuscular Hemoglobin Concent 32.1% (32.0-37.0) Red Cell Distribution Width 14.3% (12.3-15.4) Platelet Count 379bil/L (150-400) Neutrophils (%) (Auto) 63.6% (40-74) Lymphocytes (%) (Auto) 22.6% (14-46) Monocytes (%) (Auto) 8.6% (4-12) Eosinophils (%) (Auto) 4.4% (0-5) Basophils (%) (Auto) 0.5% (0-3) Sodium Level 136mEq/L (134-144) Potassium Level 4.4mEq/L (3.5-5.2) Chloride Level 103mEq/L (97-108) Carbon Dioxide Level 23mmol/L (18-29) Blood Urea Nitrogen 10mg/dL (6-20) Creatinine 0.77mg/dL (0.76-1.27) Estimat Glomerular Filtration Rate 120mL/min (>59) Glucose Level 149mg/dL (60-99) Calcium Level 8.5mg/dL (8.5-10.1) Diagnostics Erosive changes in the right 2nd distal phalanx consistent with osteomyelitis associated with a soft tissue ulcer distally. Clean amputation at 2nd met head, no further gas in tissue, left foot. Exam Lungs: Normal Air Movement Lower Extremities: Left: Edema localized (lower leg and foot, improving steadily) Lower Extremity Pulses: Palpable: Left Dorsalis Pedis Left Posterior Tibal Right Dorsalis Pedis Right Posterior Tibal Podiatry WOUND : Wound Location/Description Open amputation, left 2nd toe. Wound spans 12cm x 5cm and 3cm deep. Metatarsal head is exposed and prominent, but appears viable. Plantar 1st metatarsal head ulcer is stable, 1.5cm x 1.5cm in size, 0.1cm deep. Distal right 2nd toe ulcer is scabbed over and spans the entire nailbed. Surgical Cast or Splint: None Assessment & Plan Problems: (1) Cellulitis and abscess Plan: Wet gangrene with extensive soft tissue necrosis led to amputation of 2nd toe yesterday and packed open. It was repacked and redressed today in anticipation of metatarsal head resection, Wound VAC placement, and delayed closure. Patient will be NPO after midnight in anticipation of further OR time tomorrow to place the Wound VAC and attempt delayed haling of this large defect for limb salvage. Status: Acute ICD Code: L03.90 (2) Diabetes mellitus type 2, uncontrolled, with complications Plan: Patient's limb salvage prognosis is poor due to inconsistent compliance with diabetes management. Future complications are extremely likely. Status: Acute ICD Code: E11.8 (3) Osteomyelitis of toe of right foot Plan: At the time of Wound VAC placement tomorrow, the patient's right 2nd toe will be debrided at the distal tip to remove the infected distal phalanx and excise the nailbed with primary closure. Status: Acute ICD Code: M86.9 VTE Prophylaxis: Glenys Dickens DPM Sep 29, 2016 15:45
[2016-09-29 16:11] VITALS: BP 112/75; PULSE 67; RESP 20; O2SAT 97
--- NOTE | 2016-09-29 17:31 | PCM.PNMED ---
Subjective Date of Service Sep 29, 2016 Subjective Patient states he is doing well this morning. His pain is well controlled. He denies fever, chills. He has no complaints to offer at this time. [place] [facility] [place] that were [place]. No other remarkable events. Exam Vital Signs Vital Sign - Last Date Time Temp Pulse Resp B/P Pulse Ox O2 Delivery O2 Flow Rate FiO2 09/29/16 16:11 36.6 67 20 112/75 97 Room Air Intake and Output 09/28/16 09/28/16 09/29/16 Cumulative From/Thru 15:00 23:00 07:00 09/27/16 22:53 - 09/29/16 06:30 Intake Total 100 ml 1903 ml 1325 ml 3465 ml Output Total 40 ml 1350 ml 1200 ml 3590 ml Balance 60 ml 553 ml 125 ml -125 ml Intake Oral 500 ml 400 ml 1037 ml IV Total 100 ml 1403 ml 925 ml 2428 ml Output Urine Total 1350 ml 1200 ml 3550 ml Estimated Blood Loss 40 ml 40 ml Exam General: No acute distress, well-developed, well-nourished, appropriately interactive HEENT: Normocephalic, atraumatic. External ears without defect. Pupils equal, round, and reactive to light and accommodation. Anicteric sclerae, moist conjunctivae, and no lid lag. Oropharynx free of erythema and oral thrush with moist mucosa. Neck: Supple with full range of motion. No jugular venous distension. Cardiovascular: Regular rate and rhythm with no murmurs, rubs, or gallops appreciated Pulmonary: Clear to auscultation bilaterally with no crackles, wheezes, or rhonchi. Normal respiratory effort with no use of accessory muscles. Abdomen: Normoactive bowel tones present. Soft, nontender, nondistended. Extremities: No cyanosis, clubbing, or edema noted. Radial and posterior tibial pulses present and equivalent bilaterally. Skin: left foot covered with post-surgical bandages that appear clean, dry and intact Neurological: Cranial nerves grossly intact. Normal muscle strength, tone, and bulk. Reflexes, coordination, and sensory function within normal limits. Psychiatric: Normal mood and affect. Alert and oriented to person, place, and time. IVs and Medications Medications Reviewed: Medications were reviewed in detail Lab and Diagnostics Result Diagram: 09/29/16 0500 09/29/16 0500 X-Rays, CTs and MRIs Pre-and post operative x-rays left lower extremity. IMPRESSION: 1. Postsurgical changes status post amputation of the 2nd and 3rd toes. Dictated by: Shiv Nicole M.D. on 09/28/2016 at 14:25 IMPRESSION: 1. Erosive changes in the 2nd distal phalanx consistent with osteomyelitis associated with a soft tissue ulcer distally. Dictated by: Shiv Nicole M.D. 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 Status post left lower extremity second digit amputation 09/28/2016. Hospital day 2 1. Infected ulcer and cellulitis of the left foot, acute, present on admission, active. - Wound culture growing group B strep. - Will continue Zosyn and add Vancomycin dosing per pharmacy. Day 2 of antibiotics. - Plan to consult Dr. Domingo of infectious disease to refine antibiotic choices and define length of antibiotic treatment on 09/30/16. 2. Wet gangrene of the second digit of the left foot, full necrosis, vessel thrombosis. Acute, present on admission. - Dr. Doll performed amputation 09/28/2016, revisit operating room tomorrow for secondary debridement and possible wound vac placement. - IVF with NS at 100mls/hr as patient to be NPO after midnight. - No weight bearing on the left foot. - Antibiotics as above in #1. 3. Diabetes Mellitus, Type 2, with peripheral nephropathy. Uncontrolled. Chronic. - A1c 8.9 this admission. - Likely due to medication and diet noncompliance. - Hold home Metformin. - High dose correctional scale in the hospital. - Continue Lantus 12 units HS. 4. Acute Kidney Injury, present on admission, resolved - Resolve with IV hydration. Presume secondary to fluid depletion. - Continue lisinopril 10 mg daily. - Continue to monitor BMP. 5. History of opioid abuse, presume stable. - Continue subutex 12 mg for postop pain coverage. Home dose suboxone is 8 mg SL. - Avoid opioid analgesics. 6. Anxiety, chronic, presume stable. - Continue citalopram 40 mg daily. - Antiemetic available PRN. - Antacid available PRN. - Bowel regimen available PRN. - Tylenol available PRN mild pain, fever. Disposition: dependent upon Dr. Doll's plans to possibly return to the OR. Pain Evaluation: Adequate Pain Control GI Prophylaxis: H2 rick VTE Prophylaxis: SCDs Resuscitation Status: CPR: Attempt Resuscitation Attending Statement The patient was seen and examined together with Dr. Grimm on 09/29/2016 and I agree with the history, exam and plan as outlined in the note above. . Hailey Grimm DO Sep 29, 2016 17:31 Joey Miramontes MD Sep 29, 2016 17:59
--- NOTE | 2016-09-29 18:18 | NUR ---
No c/o pain pt had no c/o of pain through day shift. Pt made aware to be NPO after midnight. Pt verbalized understanding.
[2016-09-29 20:16] VITALS: BP 132/75; PULSE 80; RESP 16; O2SAT 96
[2016-09-29] MEDS: Insulin GLARgine 100 Unit/mL Syringe SUBQ SCH (22:16)
[2016-09-30] VITALS (8 sets, daily range): BP systolic 100–112; BP diastolic 56–75; PULSE 56–96; RESP 12–17; O2SAT 96–100
[2016-09-30] MEDS: Sodium Chloride LOK Flush 10 mL Syringe IVFLUSH SCH ×4 (00:30→22:36)
[2016-09-30] MEDS: Piperacillin-Tazo 3.375 Gm Inj 3.375 GM in Dextrose 5% Minibag Plus 50 ML IV SCH ×2 (01:08→08:36)
[2016-09-30] MEDS: 0.9% Sodium Chloride 1,000 ML IV SCH ×3 (01:08→22:51)
[2016-09-30 04:32] LABS: BASOPHILS % (AUTO) 1.1 % (0-3); EOSINOPHILS % (AUTO) 5.6 % (0-5); MONOCYTES % (AUTO) 9.9 % (4-12); Mean Corpuscular Hemoglobin 24.8 pg (27.0-35.0); Mean Corpuscular Volume 76.2 fL (81-100); NEUTROPHILS % (AUTO) 56.7 % (40-74); Platelet Count 416 bil/L (150-400)
[2016-09-30 05:16] LABS: Magnesium 1.7 mg/dL (1.6-2.6); Phosphorus 3.6 mg/dL (2.5-4.9)
[2016-09-30] MEDS: Vancomycin Inj 1,500 MG in 0.9% Sodium Chloride 500 ML IV SCH ×4 (05:38→13:55)
--- NOTE | 2016-09-30 05:45 | NUR ---
Pain/Rest Patient denies pain in his left foot. Left foot remains wrapped with no drainage apparent on the dressings. Sleeping soundly for the majority of the night. NPO after midnight for return to OR this morning. Continue to monitor.
[2016-09-30] MEDS: Insulin LISPRO 300 Unit/3 mL Inj SUBQ SCH ×4 (08:00→20:26)
[2016-09-30] MEDS: Buprenorphine 2 mg SL Tablet SL SCH (08:33)
[2016-09-30] MEDS ORDERED: Lidocaine PF 1% 30 mL Inj ONE (11:29)
[2016-09-30] MEDS ORDERED: Propofol 10,000 mCg/mL 20 mL Inj ONE (11:29)
[2016-09-30] MEDS ORDERED: Lactated Ringer's 1,000 ML IV SCH (12:09)
[2016-09-30] MEDS ORDERED: Lactated Ringer's 500 ML IV PRN (12:09)
--- NOTE | 2016-09-30 12:09 | PCM.HPANE ---
Patient Data Date of Service: Sep 30, 2016 Surgeon Admitting Provider:Chase Downs MD Attending Provider:Chase Downs MD Primary Care Physician:Shiv Bruno MD Other Provider: Reason for Visit Left Foot Wound Ht/WT & BMI Height (Feet): 6 Height (Inches): 0.00 Weight (Kilograms): 113.500 Body Mass Index 33.89 Allergies Coded Allergies: No Known Allergies (Unverified Allergy, 04/11/12) Past Anesthesia History Anesthesia History: Denies:: Anesthesia Reactions Diabetes History Hx Diabetes?: Yes Current Bedside Blood Glucose: 122 MRSA MRSA: No Medications Hypertension Medication: Yes Home Meds Incl Beta Donaldo: No Reported Medications Insulin Glargine (Lantus U100 Insulin Vial)100 Unit/Ml Vial12 Unit SUBQ HS #1 VIAL Ref 0 09/27/16 Metformin ER 1,000 Mg Tablet1,000 Mg PO DAILY Ref 0 09/27/16 Lisinopril 10 Mg [id number] Mg PO DAILY 30 Days Ref 0 09/27/16 Citalopram 40 Mg [id number] Mg PO DAILY 30 Days Ref 0 09/27/16 Buprenorphine HCl/Naloxone HCl (Suboxone 8 mg-2 mg Sl Film)1 Each Film #7 09/27/16 History History of ENT Problems?: No Hx of Heart Problems?: Yes Cardiovascular History: Positive for:: Hypertension Denies:: Cardiac Surgery Chest Pain Congestive Heart Failure Edema Heart Murmur Irregular Heartbeat Pacemaker Thrombophlebitis Hx of Respiratory Problem?: No Hx Neurologic Problems?: No Hx of GI Problems?: No Hx of Problems?: No Male Hx: Denies:: Prostate Problems Scrotal Mass Testicular Surgery Other Skin Pertinent History: diabetic ulcers on feet; left foot current admission. Left middle toe amputated for prior wound. Hx Musculoskeletal Problems?: No Hx of Psycho/Social Problems?: Yes Psycho Social History: Positive for:: Anxiety Denies:: Bipolar Disorder Hx Depression Suicide Attempt Hx Surgeries?: Yes (toe amputation) Hx Any Other Health Problems?: Yes Other History: Positive for:: Hospitalization (toe amputation, diabetes; cellulitis of testicles) Denies:: Cancer Thyroid Disease History Blood Transfusions: Positive for:: Accept Blood Products? Denies:: Blood Transfuse Reaction Blood Transfusions Hx Diabetes: YesBedside Blood Glucose: 122 Hx Alcohol Use: NoHx Substance Use: Yes (opiates; clean x1 year) Smoking Status: Never Smoker Stop/Bang Treated for Sleep Apnea?: No Do You Have a CPAP Machine?: No S-Snoring: Do You Snore Loudly: No T-Tired: feel tired, fatigued: No O-Obsered: Observed not breath: No P-Blood Pressure: treated: Yes B- Body Mass Index > 35 kg/m2: No A- Age over 50: No N- Neck Large Circumference: No G- Gender Male: Yes LIDYA Total Score: 2 LIDYA Risk Assessment: Low Risk, <3 Yes Risk Assessment Category Category 1A: Patient has history of documented sleep apnea, and HAS NOT received any narcotic, sedative or anesthesia administration during this stay. Category 1B: Patient has history of documented sleep apnea, and HAS received any narcotic , sedative or anesthesia administration during this stay Category 2: Patient has SUSPECTED Obstructive Sleep Apnea, and HAS received any narcotic , sedative or anesthesia administration during this stay. Category 3: Patient has SUSPECTED Obstructive Sleep Apnea and HAS NOT received narcotic, sedative or anesthesia administration during this stay. Category 4: Outpatient in Procedural Areas with known sleep apnea or who screen positive for High Risk via the STOP/BANG questionnaire. Low Risk, <3 Yes Exam Exam Vital Signs Vital Signs Date Time Temp Pulse Resp B/P Pulse Ox O2 Delivery O2 Flow Rate FiO2 09/30/16 08:22 36.2 72 17 112/75 100 Room Air General Appearance: Alert, Oriented X3, Cooperative HEENT/AIRWAY: MP 3, Neck Movement, Mouth Opening (Wide) Lungs: Clear to Auscultation, Normal Air Movement Heart: Regular Rate/Rhythm, Normal S1, Normal S2 Meds/Labs/Diagnostics Admission Meds Current Medications Miscellaneous (Vancomycin Serum Trough) VANCOMYCIN TROUGH PER PHARMACY ONCE ONCE XX Last administered on 09/30/16 11:55; Start 09/30/16 at 12:30; Stop at 12:31 Insulin Human Lispro (HumaLOG Insulin Inj) Nutritional Dose to be given pr... [facility] SUBQ Last administered on 09/29/16 17:11; Start 09/29/16 at 17:30 Lisinopril (Zestril) 10 mg DAILY PO Last administered on 09/30/16 08:33; Start 09/30/16 at 08:30 Bedside Blood Glucose: 122 Labs Test 09/28/16 05:06 09/29/16 01:30 09/30/16 04:01 Hemoglobin A1c 8.9% (4.8-5.6) Lactic Acid Level 0.8mmol/L (0.4-2.0) Total Bilirubin 0.3mg/dL (0.0-1.2) Aspartate Amino Transf (AST/SGOT) 14U/L (0-50) Alanine Aminotransferase (ALT/SGPT) 14U/L (0-44) Alkaline Phosphatase 89U/L (25-150) Total Protein 7.3g/dL (6.4-8.4) Albumin 2.9g/dL (3.4-5.0) Procalcitonin 1.16ng/mL (0.00-0.08) Vancomycin Level Trough 11.8mcg/mL White Blood Count 6.6th/mm3 (3.8-10.1) Red Blood Count 4.16mil/mm3 (4.40-5.80) Hemoglobin 10.3g/dL (13.8-17.2) Hematocrit 31.7% (41.0-50.0) Mean Corpuscular Volume 76.2fL (81-100) Mean Corpuscular Hemoglobin 24.8pg (27.0-35.0) Mean Corpuscular Hemoglobin Concent 32.5% (32.0-37.0) Red Cell Distribution Width 14.2% (12.3-15.4) Platelet Count 416bil/L (150-400) Neutrophils (%) (Auto) 56.7% (40-74) Lymphocytes (%) (Auto) 25.3% (14-46) Monocytes (%) (Auto) 9.9% (4-12) Eosinophils (%) (Auto) 5.6% (0-5) Basophils (%) (Auto) 1.1% (0-3) Sodium Level 135mEq/L (134-144) Potassium Level 4.1mEq/L (3.5-5.2) Chloride Level 102mEq/L (97-108) Carbon Dioxide Level 21mmol/L (18-29) Blood Urea Nitrogen 9mg/dL (6-20) Creatinine 0.71mg/dL (0.76-1.27) Estimat Glomerular Filtration Rate 131mL/min (>59) Glucose Level 154mg/dL (60-99) Calcium Level 8.6mg/dL (8.5-10.1) Phosphorus Level 3.6mg/dL (2.5-4.9) Magnesium Level 1.7mg/dL (1.6-2.6) C-Reactive Protein 5.4mg/dL (0.0-0.5) Plan Impression Patient chart reviewed, patient interviewed and anesthestic plan with risks, benefits, and alternatives discussed, and informed consent obtained. NPO Status: 0000 28 SEP 2016 ASA Physical Status: ASA3 Severe Disease Anesthetic Plan: MAC Bene/Risks/Altern/Consents: Yes HP Complete Prior to Induction: Yes Jay Mike MD Sep 30, 2016 12:09
[2016-09-30] MEDS ORDERED: Labetalol 5 mg/mL 4 mL Inj IV PRN (12:10)
[2016-09-30] MEDS ORDERED: Atropine 0.4 mg/mL Inj IVPUSH PRN (12:10)
[2016-09-30] MEDS ORDERED: Dexamethasone 4 mg/mL Inj IVPUSH PRN (12:10)
[2016-09-30] MEDS ORDERED: EPHEDrine Sulfate 50 mg/mL Inj IVPUSH PRN (12:10)
[2016-09-30] MEDS ORDERED: Ondansetron 2 mg/mL 2 mL Inj IVPUSH PRN (12:10)
[2016-09-30] MEDS ORDERED: fentaNYL-PF 50 mCg/mL 2 mL Inj IVPUSH PRN (12:10)
[2016-09-30] MEDS ORDERED: Phenylephrine 10,000 mCg/mL Inj IVPUSH PRN (12:10)
[2016-09-30] MEDS ORDERED: MetoCLOpramide 5 mg/mL 2 mL Inj IVPUSH PRN (12:10)
[2016-09-30] MEDS ORDERED: Vancomycin Serum Trough XX ONE ×2 (12:30→20:30)
[2016-09-30] MEDS ORDERED: Lactated Ringer's 1,000 ML IV ONE (12:33)
[2016-09-30] MEDS ORDERED: Lidocaine PF 1% 30 mL Inj NERVEBLOCK ONE (12:50)
--- NOTE | 2016-09-30 13:33 | PCM.PODPO ---
Podiatry Operative Report Date of Service: Sep 30, 2016 Date of Service Sep 30, 2016 Pre Operative Diagnosis Open 2nd toe amputation, left foot, wet gangrene in second stage of debridement Osteomyelitis, distal phalanx, right 2nd toe Post Operative Diagnosis Open 2nd toe amputation, left foot, wet gangrene in second stage of debridement Osteomyelitis, distal phalanx, right 2nd toe Procedure Left 2nd metatarsal head resection and placement of Wound VAC. Right distal 2nd phalanx bone debridement. Surgeon Surgeon: Glenys Doll DPM Assistants: None Indication for Procedure Gangrene, ascending necrosis, left foot Osteomyelitis, right 2nd toe Findings Viable soft tissue and bone after further debridement today. Details of Procedure Patient was identified in preop holding area and brought to the operating room. He was placed on the operating table in supine position. The timeout protocol was completed, left foot and right 2nd toe anesthetized with lidocaine plain, then prepped and draped in the usual aseptic manner. The right 2nd toe ulcer was found to be necrotic centrally, probing through the nailbed to the underlying bone. Two converging curvilinear incision were made on the dorsum of the distal 2nd toe to excise the nailbed and the underlying bone. The original ulcer was 0.7cm wide and 0.4cm long, 0.3cm deep. After debridement of skin, subcutaneous tissue, and bone, the final wound was 1cm x 0.6cm and 0.6cm deep. After excision, the wound was irrigated and edges reapproximated with 3-0 Prolene. The dressing consisted of Xeroform, gauze, and Coban bridget-taped to the 3rd toe. The left 2nd toe amputation wound was explored, any loose appearing non-viable tissue excised, the 2nd metatarsal head resected and the wound was irrigated with normal saline. The wound was cauterized where active bleeding was present, then dressed Black Granufoam, Wound VAC drape, and trac pad attached to the negative pressure machine at 125mmHg continuous negative pressure with a minimal leak detected around the remaining toes. The whole foot was wrapped with a Kerlix and Juanjo wrap. The patient tolerated the anesthesia and procedure well. He was transported to the recovery room with vital signs stable and vascular status to left foot intact. Grafts, Implants: None Complications There were no periprocedural complications identified. Condition Stable Anesthetic Administered: MAC Drains: Wound Vac Catheters: None Output, Estimated Blood Loss: 20 (ml) Blood Admin during surgery: No Surgical Cast or Splint: None Surgical Specimen Removed: No Specimen sent to Pathology: Yes Post Operative Plan Nonweightbearing, left foot. Bedrest. Expect hospital stay and IV antibiotics for 1 week. Gauge outpatient antibiotic treatment based on findings in next 2-3 days.Wound VAC expected to be needed for 2 weeks after discharge. Glenys Doll DPM Sep 30, 2016 13:33
--- NOTE | 2016-09-30 13:43 | PCM.ANEP1 ---
Post Anesthesia Phase 1 PACU Phase 1 Assessment Date of Service: Sep 30, 2016 Vital Signs Vital Signs Date Time Temp Pulse Resp B/P Pulse Ox O2 Delivery O2 Flow Rate FiO2 09/30/16 08:22 36.2 72 17 112/75 100 Room Air Anesthetic Administered: MAC Level of Alertness: Awake, talking HOOVER's with Equal Strength: Yes Pain: No Nausea or Vomiting: No Oxygen Delivery: Room Air Lungs: Normal Air Movement Jay Mike MD Sep 30, 2016 13:43
--- NOTE | 2016-09-30 13:44 | PCM.ANEP2 ---
Post Anesthesia Evaluation ASA/CMS Post Anesthesia Date of Service: Sep 30, 2016 VS in Patient's Normal Range?: Yes Resp Stable; Airway Patent?: Yes CV Function & Hydration Stable: Yes Mental Status Recovered?: Yes Pain control Satisfactory?: Yes N/V Control Satisfactory?: Yes Jay Mike MD Sep 30, 2016 13:44
--- NOTE | 2016-09-30 13:45 | NUR ---
Operating Room, Transfer to [facility] Operating Room - He left for the Operating Room at 1155 via gurney with the wound vac, vancomycin piggy-back bag, and hard chart. Report called to Yelena ODONNELL in the OR. Transfer to [facility] - It was determined that after his procedure he would transfer to [facility] 250-2. Report called to Grace ODONNELL in [facility]. His belongings and medications were taken to his new room. His , who had been waiting in [facility] for him was shown to his new room.
[2016-09-30] MEDS: cefTRIAXone Inj 2,000 MG in Dextrose 5% Minibag Plus 50 ML IV SCH (17:28)
[2016-09-30] MEDS ORDERED: Morphine PF 1 mg/mL 10 mL Inj IVPUSH PRN (17:35)
[2016-09-30] MEDS ORDERED: HYDROmorphone 1 mg/mL Inj IVPUSH PRN (17:40)
--- NOTE | 2016-09-30 19:19 | CONS ---
[address] [address] CONSULTATION REPORT PATIENT: NEGRA MACDONALD : 1975 MR#: [id number] ADMIT: 09/27/2016 JOB ID: [id number] DATE OF SERVICE: 09/30/2016 REASON FOR CONSULTATION: Severe diabetic foot infection requiring amputation of a toe. I thank Dr. Doll for this timely consult. HISTORY OF PRESENT ILLNESS: The patient is a 40-year-old gentleman with longstanding diabetes which is treated with both metformin and insulin on a daily basis. He also has a history of heroin smoking in the past, but has never done it intravenously. Underlying other problems include hypertension. 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 In any event, the patient reports that about four weeks ago he got a blister on his left foot which gradually worsened until he had a jenise ulcer there with erythema. He then started to have spreading erythema up his left leg and went to [facility]. X-rays there suggested the possibility of osteomyelitis, and so it was recommended the patient be sent over here and admitted and he came over on the . Dr. Doll evaluated the patient after his transfer to this facility and took him to the operating room. It was notable that the patient had already lost the third toe and the second toe appeared very involved. It was also noted at the time of his evaluation that he had a chronic ulcer over the right distal 2nd toe. Accordingly, the patient was taken to the operating room by Dr. Doll on the morning of the . At that time, the left second toe was found to be completely necrotic and there was extension into the 1st intermetatarsal space. Purulent material with odor was found. All necrotic tissue including the second toe was excised and a wound VAC was placed. In addition, the patient was taken back to the operating room this morning where the left second toe and metatarsal head was additionally cleaned up and the right second toe was additionally debrided and dressed. The patient reports that throughout this illness he has been relatively asymptomatic except for the swelling and pain starting around his left second toe and the adjacent tissues with progression of his left lower extremity. He has not had significant fevers, chills, or sweats despite this impressive infection of his left greater than his right second toe. PAST MEDICAL HISTORY: 1. Diabetes mellitus with relatively poor control. 2. Hypertension. 3. History of inhaling or smoking heroin and now on Suboxone. 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 He does not drink alcohol. He quit using heroin 53 weeks ago and has never been a cigarette smoker. He lives with his family in [place]. FAMILY HISTORY: Negative for tuberculosis in first-degree relatives. REVIEW OF SYSTEMS: Was done. Today, the patient has no headache, visual complaints, sore throat, cough, shortness of breath, chest pain nausea, vomiting, or diarrhea. He has no dysuria. He does have some pain, not surprisingly, in his left 2nd foot at the site of the wound VAC as well as in his right distal 2nd toe where he had a partial amputation over the past few days. He has noted no skin rash and notes that he does not have a sensory neuropathy. Remainder of the review of systems is negative. PHYSICAL EXAMINATION: Reveals an afebrile, comfortable gentleman sitting in his hospital bed. Temp 36.4, pulse of 58, respiratory rate 16, blood pressure 112/67. He is saturating well on room air. Examination of the mental status reveals it to be completely clear. His head is without trauma. Eyes without scleral icterus or conjunctivitis. Oral cavity without thrush or pharyngitis. Neck is supple without adenopathy. Lungs quite clear bilaterally. Cardiac tones: Regular rate and rhythm. Abdomen: A bit obese, soft and nontender. He does not have a Lozada catheter. He does not have inguinal adenopathy. His left foot has a large dressing present over it which I did not remove as he just had surgery this morning. A wound VAC protrudes out from under the dressing and is reported to cover the second metatarsal head area. His right second toe was also just debrided this morning and has a much smaller dressing over it which I had also did not remove as it was just placed in the OR, and I was concerned about bleeding. He does have intact pulses and capillary refill in the visible portions of his feet. I do not see any other ulcers. He does not have a sensory neuropathy and has intact motor strength throughout. LABORATORIES: Include white count 19,000 when he came in, now down to 6000 with 6% eosinophils. Platelet count 416, creatinine 0.71, CRP 5.4, and that is a baseline that we have just ordered. Micro studies include group B strep growing from the foot. We do not yet have susceptibilities and no anaerobes are growing. We also have a second organism here which is a strep viridans and we await the formal identification of that. In looking at his prior culture results, we do not have any old cultures and though there is report that he had outpatient MRSA, we see no evidence for that at this point, and a MRSA PCR was just ordered by the resident on our team and it is negative. IMAGING: Includes the x-rays done on the when he came in that showed erosive changes in the distal right 2nd phalanx on the right foot as well as postsurgical changes in the left foot and this x-ray must have been done right at the amputation because it shows amputation of both 2nd and 3rd toes. IMPRESSION: We must presume that this unfortunate gentleman with rather severe diabetes and history of diabetic foot infections which previously cost him his left 3rd toe, now has osteo probably in the left second metatarsal head as well as in the remaining portion of the right second toe. So far, we have group B strep, but there was a foul odor detected at surgery which almost certainly means that there are anaerobes present as well. Group B strep could be treated with high doses of penicillin intravenously or ampicillin or Unasyn if that was desired. Probably the simplest way to treat this infection would be with a prolonged course of IV ceftriaxone or cefazolin aimed at the group B strep in combination with some oral Flagyl for the anaerobes which are surely present. Clindamycin might offer another choice with usually good activity against group B strep and anaerobes, but it is fraught with gastrointestinal toxicity and the possibility of C. diff. RECOMMENDATIONS: 1. Will change the antibiotics at this time from vancomycin and Zosyn to ceftriaxone as well as oral Flagyl. 2. The patient will need a PICC line and a prolonged course of IV antibiotics. I am a little concerned about his history of nonintravenous heroin use, however, and plan to discuss this with him tomorrow morning before we make a final decision on the PICC line. So, let us hold off for that tonight. 3. Will continue to closely follow this patient with you as we get him ready for discharge here over the next few days.
--- NOTE | 2016-09-30 20:07 | PCM.PNMED ---
Subjective Date of Service Sep 30, 2016 Subjective Patient states he is doing well, his pain is under control with 12 mg Subutex. He denies any additional pain to his left lower extremity. No fevers, chills, shortness of breath, lightheadedness, dizziness or diaphoresis. Exam Vital Signs Vital Sign - Last Date Time Temp Pulse Resp B/P Pulse Ox O2 Delivery O2 Flow Rate FiO2 09/30/16 19:29 36.4 71 16 108/65 96 Room Air Intake and Output 09/29/16 09/29/16 09/30/16 Cumulative From/Thru 15:00 23:00 07:00 09/27/16 22:53 - 09/30/16 06:12 Intake Total 2831 ml 2024 ml 8320 ml Output Total 4100 ml 2375 ml 67993 ml Balance -1269 ml -351 ml -1745 ml Intake Oral 1680 ml 800 ml 3517 ml IV Total 1151 ml 1224 ml 4803 ml Output Urine Total 4100 ml 2375 ml 05940 ml Estimated Blood Loss 40 ml Exam General: No acute distress, well-developed, well-nourished, appropriately interactive HEENT: Normocephalic, atraumatic. External ears without defect. Pupils equal, round, and reactive to light and accommodation. Anicteric sclerae, moist conjunctivae, and no lid lag. Oropharynx free of erythema and oral thrush with moist mucosa. Neck: Supple with full range of motion. No jugular venous distension. Cardiovascular: Regular rate and rhythm with no murmurs, rubs, or gallops appreciated radial pulses equal bilaterally Pulmonary: Clear to auscultation bilaterally with no crackles, wheezes, or rhonchi. Normal respiratory effort with no use of accessory muscles. Abdomen: Normoactive bowel tones present. Soft, nontender, nondistended. Extremities: No cyanosis, clubbing, or edema noted. Skin: left foot covered with post-surgical bandages that appear clean, dry and intact Neurological: Cranial nerves grossly intact. Normal muscle strength, tone, and bulk. Psychiatric: Normal mood and affect. Alert and oriented to person, place, and time. Lab and Diagnostics Result Diagram: 09/30/16 0401 09/30/16 0401 Microbiology Group B strep probable viridans X-Rays, CTs and MRIs Pre-and post operative x-rays left lower extremity. IMPRESSION: 1. Postsurgical changes status post amputation of the 2nd and 3rd toes. Dictated by: Shiv Nicole M.D. on 09/28/2016 at 14:25 IMPRESSION: 1. Erosive changes in the 2nd distal phalanx consistent with osteomyelitis associated with a soft tissue ulcer distally. Dictated by: Shiv Nicole M.D. 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 Status post left lower extremity second digit amputation 09/28/2016. Hospital day 2 1. Infected ulcer and cellulitis of the left foot, acute, present on admission, active. - Wound culture growing group B strep probable viridans. - Infectious disease consultation: Change antibiotics from vancomycin and Zosyn to ceftriaxone and oral Flagyl. Antibiotics day 3, day 1 of this regimen. PICC line to be placed, for long-term antibiotic use. HIV and hepatitis C serologies pending. -We appreciate infectious diseas's time, input, and recommendations regarding this case. 2. Wet gangrene of the second digit of the left foot, full necrosis, vessel thrombosis. Acute, present on admission. - Dr. Doll performed amputation 09/28/2016, revisit operating room 09/30/2016, further wound debridement and placement of wound VAC to left second lower extremity digit. - No weight bearing on the left foot. - Antibiotics as above in #1. 3. Diabetes Mellitus, Type 2, with peripheral nephropathy. Uncontrolled. Chronic. - A1c 8.9 this admission. - Likely due to medication and diet noncompliance. - Hold home Metformin. - High dose correctional scale in the hospital. - Continue Lantus 16 units HS. 4. Acute Kidney Injury, present on admission, resolved - Resolve with IV hydration. Presume secondary to fluid depletion. - Continue lisinopril 10 mg daily. - Continue to monitor BMP. 5. History of opioid abuse, presume stable. - Continue subutex 12 mg for postop pain coverage. Home dose suboxone is 8 mg SL. - Avoid opioid analgesics. 6. Anxiety, chronic, presume stable. - Continue citalopram 40 mg daily. - Antiemetic available PRN. - Antacid available PRN. - Bowel regimen available PRN. - Tylenol available PRN mild pain, fever. Disposition: Likely in hospital 2-3 days for IV antibiotics, and postop evaluation. Infectious disease to evaluate risks of PICC line placement for possible outpatient management of antibiotics. Pain Evaluation: Adequate Pain Control GI Prophylaxis: H2 rick VTE Prophylaxis: SCDs VTE Mechanical Devices: Intermittant Pneumatic CD Resuscitation Status: CPR: Attempt Resuscitation Attending Statement The patient was seen and examined together with Dr. Barton on 09/30/2016 and I agree with the history, exam and plan as outlined in the note above. . Az Barton DO Sep 30, 2016 20:07 Joey Miramontes MD Oct 04, 2016 08:52
[2016-09-30] MEDS: Insulin GLARgine 100 Unit/mL Syringe SUBQ SCH (20:25)
[2016-10-01 00:15] VITALS: BP 107/61; PULSE 84; RESP 16; O2SAT 96
[2016-10-01] MEDS: Insulin LISPRO 300 Unit/3 mL Inj SUBQ SCH ×4 (07:43→22:00)
[2016-10-01] MEDS: Sodium Chloride LOK Flush 10 mL Syringe IVFLUSH SCH ×2 (07:44→16:30)
[2016-10-01 07:49] LABS: Mean Corpuscular Hemoglobin 24.7 pg (27.0-35.0); Mean Corpuscular Volume 75.6 fL (81-100)
[2016-10-01] MEDS: cefTRIAXone Inj 2,000 MG in Dextrose 5% Minibag Plus 50 ML IV SCH (07:58)
[2016-10-01] MEDS: Buprenorphine 2 mg SL Tablet SL SCH (09:18)
--- NOTE | 2016-10-01 11:08 | PROG NOTE ---
[address] [address] PROGRESS NOTE PATIENT: NEGRA MACDONALD : 1975 MR#: [id number] ADMIT: 09/27/2016 JOB ID: [id number] DATE: 10/01/2016 REASON FOR FOLLOWUP: Severe bilateral diabetic foot infections in a diet diabetic gentleman. INTERVAL HISTORY: The patient reports no fevers, no chills, no sweats. He has no sore throat. No cough. No abdominal pain or diarrhea. He reports no pain in his feet, but of course, they are essentially insensate. We discussed this case in person yesterday with Dr. Doll. She reports that she believes that after her extensive debridement of his left foot that there is a little or no infection left and that a short course of IV antibiotics followed by longer course of antibiotics would be reasonable. She thought there was infection extending down to but not involving the remaining bone. PHYSICAL EXAMINATION: Reveals an afebrile gentleman, temperature 36.4, pulse 84, respiratory rate 16, blood pressure 107/61, saturating 96% on room air. Examination of the oral cavity negative. Lungs clear. Abdomen soft and nontender. The left foot is still wrapped in an extensive dressing at the site where the second toe was amputated and the debridement was done. The right distal second toe also is still in its postop dressing where the amputation of the distal right second toe was performed. There is no significant cellulitis seen outside of these dressings which I did not remove. LABORATORIES: Labs today include a white count of 6900. Creatinine 0.69. LFTs normal. Albumin 3.0. CRP is 5.4. Hep C and HIV negative. Cultures from the debridement on the were positive for group A beta hemolytic strep, as well as Strep mitis. The Strep mitis has MICs which show it is very sensitive to ceftriaxone. We do not yet have susceptibilities for group B strep. An anaerobes is also growing. It is a gram-negative anaerobes, but we do not have identification or susceptibility yet. MRSA screen is negative. IMPRESSION: This patient has a history of recurrent and quite severe diabetic foot infections, this time involving osteomyelitis of the left second toe as well as the distal right second toe. The patient's cultures at this point are growing group B strep, as well as a Strep mitis as well as anaerobes. At this point, our regimen of ceftriaxone and Flagyl sounds most appropriate. Because of the polymicrobial nature of the infection, I think we should try to continue for at least a week or two with intravenous therapy with a possible transition to oral after that. RECOMMENDATIONS: 1. I have written orders for his potential discharge antibiotics to include ceftriaxone to be given once a day in the infusion center. 2. In addition to the ceftriaxone, the patient will need Flagyl 500 mg orally twice a day. 3. These antibiotics should be continued at least through October 09 when I will see the patient in ID Clinic. 4. I have ordered labs as well to be done each Friday, so I will have them available on the Friday clinic. 5. I do not think he needs a PICC line and rather we can just use peripheral IVs, as his veins appear reasonable. If we needed, we can put in a midline, but I am not certain that will be needed.
--- NOTE | 2016-10-01 11:22 | NUR ---
Social Work Note - Continued Discharge Planning: D/A: The Pt is a 40 y/o male that is now on day 4 of admission for left foot wound. Pt discussed in rounds. MD Doll and MD Domingo consulting. Nursing reported that is has been recommended for the Pt to have IV ABx as an OtPt until Oct. Nursing reported that the Pt is willing to travel to the [facility] [place] for daily ABx. Pt has transportation. Wound VAC has been placed. SW will continue to follow. P: The Pt is not medically stable for discharge. MD Doll and MD Domingo consulting. Recommendations for OtPt IV ABx until Oct. Wound VAC placed. SW will continue to follow. STACEY Mathis Community Coordinator [employer]
[2016-10-01 11:27] VITALS: BP 111/72; PULSE 72; RESP 16; O2SAT 100
[2016-10-01 18:02] VITALS: BP 122/72; PULSE 70; RESP 16; O2SAT 96
--- NOTE | 2016-10-01 18:39 | NUR ---
Pain Pt reports L leg pain as "10/10" for much of the shift. He reports pain is temporarily reduced after 15mg of oxycodone has been given but that it doesn't last long. Patient requesting that the pain medication be given more frequently. Doctor notified. No changes to orders at this time. Legs elevated on pillows. L leg wounds were cleaned, nonadherent pads applied and prosper wrapped. Up to bathroom, gait is steady. Addendum: 10/01/16 at 1842 by KEN NICHOLS RN NOTE ENTERED IN ERROR. Please disregard above note.
--- NOTE | 2016-10-01 18:43 | NUR ---
Pain For most of the shift patient denied pain to his lower extremities. His left foot is prosper wrapped and has a wound vac set to continuous therapy at 125mmHg at this time. He is non weight bearing on his L foot. Pt is on scheduled subutex which he reports is helpful in controlling his pain. At about 1800 he began to report L foot pain "5/10" that was intermittent. He was given toradol IV x1. Continue to monitor.
[2016-10-01 20:30] VITALS: BP 121/74; PULSE 65; RESP 16; O2SAT 97
[2016-10-01] MEDS: Insulin GLARgine 100 Unit/mL Syringe SUBQ SCH (21:24)
--- NOTE | 2016-10-01 22:32 | PCM.PNPOD ---
Subjective Date of Service: Oct 01, 2016 Visit Information: Reason for Visit Left Foot Wound Surgery/Surgery Date Post-Op Day # Date of Admission: Sep 27, 2016 at 22:45 Hospital Day # Postop General: No Complaints Gastrointestinal: Good Appetite Pain Management: PO Objective Vital Sign - Last Date Time Temp Pulse Resp B/P Pulse Ox O2 Delivery O2 Flow Rate FiO2 10/01/16 18:02 36.6 70 16 122/72 96 Room Air Intake and Output 09/30/16 09/30/16 10/01/16 Cumulative From/Thru 15:00 23:00 07:00 09/27/16 22:53 - 10/01/16 05:32 Intake Total 950 ml 980 ml 1368 ml 39278 ml Output Total 2100 ml 2900 ml 39725 ml Balance 950 ml -1120 ml -1532 ml -3447 ml Intake Oral 480 ml 640 ml 4637 ml IV Total 950 ml 500 ml 728 ml 6981 ml Output Urine Total 2100 ml 2900 ml 47915 ml Estimated Blood Loss 40 ml Result Diagram: 10/01/1631 10/01/1631 Lab Test 09/28/16 05:06 09/29/16 01:30 09/30/16 04:01 09/30/16 18:00 Hemoglobin A1c 8.9% (4.8-5.6) Lactic Acid Level 0.8mmol/L (0.4-2.0) Procalcitonin 1.16ng/mL (0.00-0.08) Vancomycin Level Trough 11.8mcg/mL Neutrophils (%) (Auto) 56.7% (40-74) Lymphocytes (%) (Auto) 25.3% (14-46) Monocytes (%) (Auto) 9.9% (4-12) Eosinophils (%) (Auto) 5.6% (0-5) Basophils (%) (Auto) 1.1% (0-3) Phosphorus Level 3.6mg/dL (2.5-4.9) Magnesium Level 1.7mg/dL (1.6-2.6) C-Reactive Protein 5.4mg/dL (0.0-0.5) Hepatitis C Antibody 0.1s/co ratio (0.0-0.9) HIV (1&2) Ag and Ab, 4th Generation Non reactive (Non Reactive) Test 10/01/16 06:31 White Blood Count 6.9th/mm3 (3.8-10.1) Red Blood Count 4.42mil/mm3 (4.40-5.80) Hemoglobin 10.9g/dL (13.8-17.2) Hematocrit 33.4% (41.0-50.0) Mean Corpuscular Volume 75.6fL (81-100) Mean Corpuscular Hemoglobin 24.7pg (27.0-35.0) Mean Corpuscular Hemoglobin Concent 32.6% (32.0-37.0) Red Cell Distribution Width 14.3% (12.3-15.4) Platelet Count 392bil/L (150-400) Sodium Level 137mEq/L (134-144) Potassium Level 4.6mEq/L (3.5-5.2) Chloride Level 105mEq/L (97-108) Carbon Dioxide Level 18mmol/L (18-29) Blood Urea Nitrogen 9mg/dL (6-20) Creatinine 0.69mg/dL (0.76-1.27) Estimat Glomerular Filtration Rate 136mL/min (>59) Glucose Level 120mg/dL (60-99) Calcium Level 8.6mg/dL (8.5-10.1) Total Bilirubin 0.2mg/dL (0.0-1.2) Aspartate Amino Transf (AST/SGOT) 23U/L (0-50) Alanine Aminotransferase (ALT/SGPT) 22U/L (0-44) Alkaline Phosphatase 81U/L (25-150) Total Protein 7.4g/dL (6.4-8.4) Albumin 3.0g/dL (3.4-5.0) Exam General: Alert, Oriented X3, Cooperative Lungs: Normal Air Movement Lower Extremities: Left: Edema localized (lower leg and foot, resolved) Lower Extremity Pulses: Palpable: Left Dorsalis Pedis Left Posterior Tibal Right Dorsalis Pedis Right Posterior Tibal Podiatry WOUND : Wound Location/Description Right 2nd toe dressing intact and dry, incision well coapted. Left wound sealed well with Wound VAC in place. Incision General Appearence: Wound Vac (125mmHg continuous, 30ml drainage. ) Wound Drainage Type: Wound Vac (continued) Surgical Cast or Splint: None Assessment & Plan Problems: (1) Cellulitis and abscess Plan: Wet gangrene with extensive soft tissue necrosis led to amputation of 2nd toe, left open for 2 days, then Wound Vac applied yesterday after 2nd metatarsal head resection. Expecting to discontinue VAC tomorrow, discharge home with frequent dressing changes, Wound Clinic follow up on Friday to be arranged. IV infusions for one more week. Status: Acute ICD Code: L03.90 (2) Diabetes mellitus type 2, uncontrolled, with complications Plan: Patient's limb salvage prognosis is poor due to inconsistent compliance with diabetes management. Future complications are extremely likely. Status: Acute ICD Code: E11.8 (3) Osteomyelitis of toe of right foot Plan: All areas of infected soft tissue and bone have been surgically removed. Left foot wound is still open. Patient will have 1 more week of IV antibiotics, then symptomatic treatment to follow until wound closure. Status: Acute ICD Code: M86.9 VTE Prophylaxis: Glenys Dickens DPM Oct 01, 2016 22:32
--- NOTE | 2016-10-01 23:11 | PCM.PNMED ---
Subjective Date of Service Oct 01, 2016 Subjective The patient has no new complaints and is feeling better. Exam Vital Signs Vital Sign - Last Date Time Temp Pulse Resp B/P Pulse Ox O2 Delivery O2 Flow Rate FiO2 10/01/16 18:02 36.6 70 16 122/72 96 Room Air Intake and Output 09/30/16 09/30/16 10/01/16 Cumulative From/Thru 15:00 23:00 07:00 09/27/16 22:53 - 10/01/16 05:32 Intake Total 950 ml 980 ml 1368 ml 67512 ml Output Total 2100 ml 2900 ml 93290 ml Balance 950 ml -1120 ml -1532 ml -3447 ml Intake Oral 480 ml 640 ml 4637 ml IV Total 950 ml 500 ml 728 ml 6981 ml Output Urine Total 2100 ml 2900 ml 98386 ml Estimated Blood Loss 40 ml Exam General: The patient is in no apparent distress. HEENT: Head is atraumatic and normocephalic. Eyes: Pupils are equally round and reactive to light and accommodation. Extraocular muscles are intact. Sclera are white, anicteric. Subconjunctival mucosa is pink. Ears and nose are unremarkable. Oropharynx: There is no mucosal lesions, there is no thrush, there is no pharyngitis. Neck: Is supple, there are no nodes, or masses or tenderness. Chest: Is clear to auscultation and percussion. There are no rales, rhonchi, wheezes or rubs. Heart: Rate, rhythm is regular. There is no murmur, rub or gallop. Abdomen: Good bowel sounds are present. Abdomen is soft, nontender, no organomegaly or masses were appreciated. Extremities: There is a wound VAC with Juanjo wrap around it on the left foot. The right second toe has a postoperative wrap in place. The erythema on both lower extremities appears to have dissipated significantly Neurologic: There are no focal neurological deficits. Cranial nerves II through XII are intact. There are no sensory or motor deficits. Psychiatric: Patients mood is calm and shows no sign of agitation. Genital: Deferred Rectal: Deferred Lab and Diagnostics Result Diagram: 10/01/16 0631 10/01/16 0631 Microbiology Microbiology LEONARDA GS (GRAM STAIN) Final 09/28/16-1323 GRAM STAIN RESULT MANY GRAM POS COCCI MANY GRAM NEG RODS LEONARDA CULT AEROBIC Preliminary 10/01/16-0840 Organism 1 BETA STREPTOCOCCUS GROUP B COLONY COUNT/QUANTITY HEAVY GROWTH Organism 2 STREP MITIS GROUP COLONY COUNT/QUANTITY HEAVY GROWTH BETA STREPTOCOCCUS GROUP B "Penicillin and ampicillin continues to be the drugs of choice for treatment of B-hemolytic streptoccal infections. Susceptibility testing of penicillin and other B-lactams approved by the FDA for treatment of B-hemolytic streptococcal infections need not be performed routinely. because non-susceptible isolates (ie. penicillin LEONARDA's >0.12 and ampicillin MICs >0.25 ug/ml) are extremely rare in any B-hemolytic streptococcal isolate and have not been reported for Streptococcus pyogenes. (CLSI X702-N51 VOL.31 NO 2010) 2. STREP MITIS GROUP M.I.C Interp --------- ------ * AMPICILLIN <=0.25 S * CEFOTAXIME <=0.12 S * CEFTRIAXONE 0.25 S * CLINDAMYCIN <=0.25 S * ERYTHROMYCIN 2 R * LEVOFLOXACIN 1 S * LINEZOLID <=2 S * PENICILLIN-G 0.25 I * VANCOMYCIN 0.5 S ANAEROBIC CULTURE Preliminary 10/01/16-08 PRELIMINARY ID GRAM NEG GRAHAM, PROBABLE ANAEROBE CONTINUED ON NEXT PAGE RUN DATE: 10/01/16 [facility] LIVE PAGE 2 RUN TIME: 0855 Specimen Inquiry PHYSICIAN Patient: NEGRA MACDONALD III [id number] (Continued) Specimen: [id number] Collected: 09/28/16 Received: 09/28/16-1154 (Continued) Procedure Result Verified Site ANAEROBIC CULTURE Preliminary (continued) 10/01/16-0855 COLONY COUNT/QUANTITY MODERATE GROWTH X-Rays, CTs and MRIs PROCEDURE: X-RAY LEFT FOOT COMPLETE, MINIMUM THREE VIEWS ([id number]) INDICATIONS: Postop exam TECHNIQUE: 3 views of the foot were acquired. COMPARISON: [facility], CR, XR FOOT 3VW LT, 11/06/2015, 13:54. FINDINGS: Bones: There are postsurgical changes status post amputation of the 2nd and 3rd toes at the level of the metatarsophalangeal joints. No acute fractures. Soft tissues: There is soft tissue swelling at the forefoot and well as packing material demonstrated in the surgical bed. IMPRESSION: 1. Postsurgical changes status post amputation of the 2nd and 3rd toes. Dictated by: Shiv Nicole M.D. on 09/28/2016 at 14:25 Approved by: Shiv Nicole M.D. on 09/28/2016 at 14:26 PROCEDURE: X-RAY RIGHT FOOT COMPLETE, MINIMUM THREE VIEWS ([id number]) INDICATIONS: Chronic ulcer, tip of 2nd toe, possible osteo TECHNIQUE: 3 views of the foot were acquired. COMPARISON: None. FINDINGS: Bones: There are erosive changes along the distal cortex of the 2nd distal phalanx with associated mild lucency consistent with osteomyelitis. There is bony irregularity medially at the base of the 2nd proximal phalanx likely representing sequela of prior trauma. Soft tissues: There is a soft tissue ulcer distally in the 2nd toe. IMPRESSION: 1. Erosive changes in the 2nd distal phalanx consistent with osteomyelitis associated with a soft tissue ulcer distally. Dictated by: Shiv Nicole M.D. on 09/28/2016 at 14:23 Approved by: Shiv Nicole M.D. 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 Status post left lower extremity second digit amputation 2016. Hospital day 3 1. Infected ulcer and cellulitis of the left foot, acute, present on admission, active. - Wound culture growing group B strep - Infectious disease consultation: Change antibiotics from vancomycin and Zosyn to ceftriaxone and oral Flagyl. Antibiotics day 3, day 1 of this regimen. PICC line to be placed, for long-term antibiotic use. HIV and hepatitis C serologies are negative -We appreciate infectious diseas's time, input, and recommendations regarding this case. We will follow their recommendations. 2. Wet gangrene of the second digit of the left foot, full necrosis, vessel thrombosis. Acute, present on admission. - Dr. Doll performed amputation 09/28/2016, revisit operating room 09/30/2016, further wound debridement and placement of wound VAC to left second lower extremity digit. - No weight bearing on the left foot. - Antibiotics as above in #1. 3. Diabetes Mellitus, Type 2, with peripheral nephropathy. Uncontrolled. Chronic. - A1c 8.9 this admission. - Likely due to medication and diet noncompliance. - Hold home Metformin fo now, we may need to restart - High dose correctional scale in the hospital. - Continue Lantus 16 units HS. 4. Acute Kidney Injury, present on admission, resolved - Resolve with IV hydration. Presume secondary to fluid depletion. - Continue lisinopril 10 mg daily. - Continue to monitor BMP. 5. History of opioid abuse, presume stable. - Continue subutex 12 mg for postop pain coverage. Home dose suboxone is 8 mg SL. - Avoid opioid analgesics. 6. Anxiety, chronic, presume stable. - Continue citalopram 40 mg daily. - Antiemetic available PRN. - Antacid available PRN. - Bowel regimen available PRN. - Tylenol available PRN mild pain, fever. Disposition: Likely in hospital 1-2 days for IV antibiotics, and postop evaluation. Infectious disease to evaluate risks of PICC line placement for possible outpatient management of antibiotics. We will discuss plan with infectious disease for possible outpatient antibiotics. Pain Evaluation: Adequate Pain Control GI Prophylaxis: H2 rick VTE Prophylaxis: SCDs VTE Mechanical Devices: Intermittant Pneumatic CD Resuscitation Status: CPR: Attempt Resuscitation KennaNadir MD Oct 01, 2016 23:11
[2016-10-02] MEDS: Sodium Chloride LOK Flush 10 mL Syringe IVFLUSH SCH ×2 (00:29→08:03)
[2016-10-02 06:01] VITALS: BP 108/78; PULSE 68; RESP 16; O2SAT 97
--- NOTE | 2016-10-02 06:17 | NUR ---
Shift Note assumed pt care at 1900, pt has wound vac unto left foot wound set at 125mmhg continuous,drained scant serous drain, pt did not have breakthrough pain throughout night, medium walker boot available at bedside, call light in reach, qhrly checks done throughout night.
[2016-10-02 08:00] VITALS: BP 122/77
[2016-10-02] MEDS: Insulin LISPRO 300 Unit/3 mL Inj SUBQ SCH ×2 (08:00→12:38)
[2016-10-02] MEDS: Buprenorphine 2 mg SL Tablet SL SCH (08:03)
[2016-10-02] MEDS: cefTRIAXone Inj 2,000 MG in Dextrose 5% Minibag Plus 50 ML IV SCH (08:04)
--- NOTE | 2016-10-02 10:06 | PROG NOTE ---
[address] [address] PROGRESS NOTE PATIENT: NEGRA MACDONALD : 1975 MR#: [id number] ADMIT: 09/27/2016 JOB ID: [id number] DATE: 10/02/2016 INFECTIOUS DISEASE FOLLOW UP NOTE: REASON FOR FOLLOWUP: Severe diabetic foot infection status post foot extensive debridement. INTERVAL HISTORY: Today, the patient feels fine. He has no fevers, chills or sweats. No pulmonary or GI symptoms. No pain in his feet. PHYSICAL EXAMINATION: Reveals an afebrile gentleman, temperature 36.6, pulse 68, respiratory rate 16, blood pressure 122/77. He is saturating well on room air and in no acute distress. Mental status clear. Lungs clear. Cardiac tones without murmur. Abdomen benign. Both feet have considerable dressings over them which I did not remove as they were placed by Podiatry. The left 2nd toe has been amputated and the distal portion of the right 2nd toe as well. LABORATORIES: Include white count 6900, platelet count 392, creatinine 0.69. LFTs normal. Hep C antibody is negative. HIV negative. Culture is positive for group B strep, strep mitis and Bacteroides thetaiotaomicron. Note that the patient still has a Wound VAC in place on his left foot and that has been the hold up in his discharge. IMPRESSION: A complex diabetic foot infection involving multiple organisms but primarily Bacteroides and group B strep status post debridement. Likely, according to Dr. Doll's notes, it is likely that this debridement has been adequate and he will not require a long course of IV antibiotics, but we plan to continue at least IV antibiotics for another week or so and then follow the patient closely thereafter. RECOMMENDATIONS: 1. The patient is ready for discharge from an Infectious Disease point of view. He can be sent out on a daily IV ceftriaxone as well as oral Flagyl as was discussed. 2. I will see the patient in my clinic next week October 09. 3. ID will go ahead and sign off at this time as there are no outstanding ID issues at this point.
--- NOTE | 2016-10-02 11:08 | NUR ---
Wound Vac Called OP wound center who stated that they are able to come to OP MOC when patient getting abx with order. Addendum: 10/02/16 at 1500 by DANYELL ESCOBEDO RN Dr Sharmila vega see patient at 1230. removed wound vac Requested f/up appts be made - done and placed in DC instructions. Also reported would write what she would like done with dressing in DC notes.
[2016-10-02 11:16] LABS: Platelet Count 460 bil/L (150-400)
[2016-10-02 11:19] LABS: Mean Corpuscular Hemoglobin 24.6 pg (27.0-35.0); Mean Corpuscular Volume 74.2 fL (81-100)
[2016-10-02 11:44] LABS: BASOPHILS % (AUTO) 1 % (0-3); EOSINOPHILS % (AUTO) 3 % (0-5); MONOCYTES % (AUTO) 8 % (4-12); Magnesium 1.8 mg/dL (1.6-2.6); NEUTROPHILS % (AUTO) 62 % (40-74)
[2016-10-02 15:18] VITALS: BP 115/68; PULSE 81; RESP 16; O2SAT 97
--- NOTE | 2016-10-02 16:04 | NUR ---
Subglen Martin from [facility] just called stating he has released and order for his to p/up his weekly dose of rx. Requesting that pt not be sent home with a script for this.
--- NOTE | 2016-10-02 16:09 | NUR ---
Social Work Note - Readiness for Discharge: D/A: The Pt is a 40 y/o male that is now on day 5 of hospitalization for left foot wound. Wound Care involved, Wound VAC discontinued on 10/02. As per MD Doll, the Pt will see MD Park on Friday or Friday and then have an appointment with herself on Oct. ID services have been discharged with an upcoming appointment scheduled on Oct will MD Domingo. The Pt will complete OtPt IV infusions until Oct with dressing changes every other day. The Pt will require OtPt IV infusions vs home infusions due to past drug history. SW met with the Pt to discuss discharge plan. The Pt denies any needs at this time. P: The Pt will likely discharge home today with family providing POV transportation. The Pt will follow up with OtPt IV infusions for IV ABx until Oct and will have dressing changes every other day. The Pt to see MD Park next Friday or Friday, MD Domingo on Oct, and MD Doll on Oct. The Pt denies any needs at this time. STACEY Mathis Route Manager STACEY Edwards
--- NOTE | 2016-10-02 16:19 | PCM.DIMED ---
Discharge Instructions Date of Service Oct 02, 2016 Dates of Hospitalization Sep 27, 2016 at 22:45 Discharge Diagnosis Discharge Diagnosis Diabetic Foot Infection with Cellulitis Diet Heart Healthy Activity Limited until seen by PCP Call your provider Fever or Chills, Shortness of breath, Bleeding, Chest pain, Vomitting, Excessive diarrhea, Weakness (unilateral) Patient Instructions Follow-up Provider: Shiv Bruno MD Follow-up with PCP in: 1 week Provider: Neeraj Domingo MD Follow-up in: 1 week Mid-level Provider (F9): Glenys Doll DPM Follow-up with Mid-level in: 1 week Nadir Hunt MD Oct 02, 2016 16:19
[2016-10-02] MEDS ORDERED: POLY17PO6 PO (16:23)
[2016-10-02] MEDS ORDERED: METR500T PO (16:23)
--- NOTE | 2016-10-02 17:45 | NUR ---
Discharge Reviewed DC instructions with patient and . Scripts sent in packet F/up appt made and emphasized at DC xtra wound supplies sent with patient per MD request OP MOC RN notified of dressing changes qod, orders written. Pt taken out in w/ch to home with . Plans to p/up suboxone tomorrow boot placed on patient before discharge.
--- NOTE | 2016-10-02 23:31 | PCM.DC.MED ---
Discharge Summary Date of Service Oct 02, 2016 Dates of Hospitalization Date of Hospital Admission Sep 27, 2016 at 22:45 Date of Discharge: Oct 02, 2016 Providers: Admitting Physician: Chase Downs MD Primary Care Physician: Shiv Bruno MD Attending Physician: Chase Downs MD Diagnosis at Time of Discharge Diagnosis at Time of Discharge Diabetic Foot Infection with Cellulitis Consultations Dr. Domingo of infectious disease Procedures XRay, CTs & MRIs PROCEDURE: X-RAY LEFT FOOT COMPLETE, MINIMUM THREE VIEWS ([id number]) INDICATIONS: Postop exam TECHNIQUE: 3 views of the foot were acquired. COMPARISON: [facility], CR, XR FOOT 3VW LT, 11/06/2015, 13:54. FINDINGS: Bones: There are postsurgical changes status post amputation of the 2nd and 3rd toes at the level of the metatarsophalangeal joints. No acute fractures. Soft tissues: There is soft tissue swelling at the forefoot and well as packing material demonstrated in the surgical bed. IMPRESSION: 1. Postsurgical changes status post amputation of the 2nd and 3rd toes. Dictated by: Shiv Nicole M.D. on 09/28/2016 at 14:25 Approved by: Shiv Nicole M.D. on 09/28/2016 at 14:26 PROCEDURE: X-RAY RIGHT FOOT COMPLETE, MINIMUM THREE VIEWS ([id number]) INDICATIONS: Chronic ulcer, tip of 2nd toe, possible osteo TECHNIQUE: 3 views of the foot were acquired. COMPARISON: None. FINDINGS: Bones: There are erosive changes along the distal cortex of the 2nd distal phalanx with associated mild lucency consistent with osteomyelitis. There is bony irregularity medially at the base of the 2nd proximal phalanx likely representing sequela of prior trauma. Soft tissues: There is a soft tissue ulcer distally in the 2nd toe. IMPRESSION: 1. Erosive changes in the 2nd distal phalanx consistent with osteomyelitis associated with a soft tissue ulcer distally. Dictated by: Shiv Nicole M.D. on 09/28/2016 at 14:23 Approved by: Shiv Nicole M.D. 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 Patient noticed a small friction blister on the plantar of his left foot 4 weeks ago, but it was not painful nor bothersome. However, the blister soon turns into a big ulcer and gets progressively worse. He also admits to a sudden onset swelling of the left second toe and ankle after work tonight. There is also a black area at the bottom of his second toe that he just noticed tonight. He only has mild-moderate pain from these. Patient denies fever, chills, nausea, vomiting, or headache. He admits to decreased sensation in the left foot. Patient reports similar symptoms in December 2015 when he was found to have osteomyelitis of the left third toe that required amputation. He works at a [employer] and has his feet wet most of the time. He does not have a PCP and does not know when his last A1c was. He just recently resumed the Lantus. He does not have a PCP and gets his prescription from [facility]. At [facility] [place], patient was found to have an infected left foot and leukocytosis of 25.9. Otherwise, vital signs and labs were stable. Lactic acid. 1.1. XR of the left foot was done. No report available. Patient was given a dose of Zosyn at the ER there and was transferred to [facility] for infected wound and cellulitis of the left foot and lower extremity. Dr. Doll was contacted and will see the patient tomorrow. She was admitted to the hospital service for further evaluation and treatment. 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 Status post left lower extremity second digit amputation 2016. Hospital day 4. 1. Infected ulcer and cellulitis of the left foot, acute, present on admission, active. - Wound culture growing group B strep - Infectious disease consultation: Change antibiotics from vancomycin and Zosyn to ceftriaxone and oral Flagyl. Antibiotics day 3, day 1 of this regimen. PICC line to be placed, for long-term antibiotic use. HIV and hepatitis C serologies are negative -We appreciate infectious diseas's time, input, and recommendations regarding this case. We will follow their recommendations. Dr. Domingo recommends continuing IV antibiotics through 10/09/2016. 2. Wet gangrene of the second digit of the left foot, full necrosis, vessel thrombosis. Acute, present on admission. - Dr. Doll performed amputation 09/28/2016, revisit operating room 09/30/2016, further wound debridement and placement of wound VAC to left second lower extremity digit. - No weight bearing on the left foot. - Antibiotics as above in #1. 3. Diabetes Mellitus, Type 2, with peripheral nephropathy. Uncontrolled. Chronic. - A1c 8.9 this admission. - Likely due to medication and diet noncompliance. - Hold home Metformin fo now, we may need to restart - High dose correctional scale in the hospital. - Continue Lantus 16 units HS. 4. Acute Kidney Injury, present on admission, resolved - Resolve with IV hydration. Presume secondary to fluid depletion. - Continue lisinopril 10 mg daily. - Continue to monitor BMP. 5. History of opioid abuse, presume stable. - Continue subutex 12 mg for postop pain coverage. Home dose suboxone is 8 mg SL. - Avoid opioid analgesics. 6. Anxiety, chronic, presume stable. - Continue citalopram 40 mg daily. - Antiemetic available PRN. - Antacid available PRN. - Bowel regimen available PRN. - Tylenol available PRN mild pain, fever. Disposition: Patient will be discharged home today to follow up daily in the LOC for IV antibiotics through 10/09/2016. Exam Vital Signs (Last) Date Time Temp Pulse Resp B/P Pulse Ox O2 Delivery O2 Flow Rate FiO2 10/02/16 15:18 36.5 81 16 115/68 97 Room Air Exam General: The patient is in no apparent distress. HEENT: Head is atraumatic and normocephalic. Eyes: Pupils are equally round and reactive to light and accommodation. Extraocular muscles are intact. Sclera are white, anicteric. Subconjunctival mucosa is pink. Ears and nose are unremarkable. Oropharynx: There is no mucosal lesions, there is no thrush, there is no pharyngitis. Neck: Is supple, there are no nodes, or masses or tenderness. Chest: Is clear to auscultation and percussion. There are no rales, rhonchi, wheezes or rubs. Heart: Rate, rhythm is regular. There is no murmur, rub or gallop. Abdomen: Good bowel sounds are present. Abdomen is soft, nontender, no organomegaly or masses were appreciated. Extremities: There is a wound VAC with Juanjo wrap around it on the left foot. The right second toe has a postoperative wrap in place. The erythema on both lower extremities appears to have dissipated significantly Neurologic: There are no focal neurological deficits. Cranial nerves II through XII are intact. There are no sensory or motor deficits. Psychiatric: Patients mood is calm and shows no sign of agitation. Genital: Deferred Rectal: Deferred Test 09/28/16 05:06 09/29/16 01:30 09/30/16 04:01 09/30/16 18:00 Hemoglobin A1c 8.9% (4.8-5.6) Lactic Acid Level 0.8mmol/L (0.4-2.0) Procalcitonin 1.16ng/mL (0.00-0.08) Vancomycin Level Trough 11.8mcg/mL Phosphorus Level 3.6mg/dL (2.5-4.9) C-Reactive Protein 5.4mg/dL (0.0-0.5) Hepatitis C Antibody 0.1s/co ratio (0.0-0.9) HIV (1&2) Ag and Ab, 4th Generation Non reactive (Non Reactive) Test 10/02/16 10:56 White Blood Count 7.0th/mm3 (3.8-10.1) Red Blood Count 4.76mil/mm3 (4.40-5.80) Hemoglobin 11.7g/dL (13.8-17.2) Hematocrit 35.3% (41.0-50.0) Mean Corpuscular Volume 74.2fL (81-100) Mean Corpuscular Hemoglobin 24.6pg (27.0-35.0) Mean Corpuscular Hemoglobin Concent 33.1% (32.0-37.0) Red Cell Distribution Width 14.5% (12.3-15.4) Platelet Count 460bil/L (150-400) Neutrophils (%) (Auto) 62% (40-74) Lymphocytes (%) (Auto) 24% (14-46) Monocytes (%) (Auto) 8% (4-12) Eosinophils (%) (Auto) 3% (0-5) Basophils (%) (Auto) 1% (0-3) Metamyelocytes % 1% (0-0) Myelocytes % 1% (0-0) Sodium Level 133mEq/L (134-144) Potassium Level 4.4mEq/L (3.5-5.2) Chloride Level 98mEq/L (97-108) Carbon Dioxide Level 20mmol/L (18-29) Blood Urea Nitrogen 13mg/dL (6-20) Creatinine 0.70mg/dL (0.76-1.27) Estimat Glomerular Filtration Rate 133mL/min (>59) Glucose Level 223mg/dL (60-99) Calcium Level 8.7mg/dL (8.5-10.1) Magnesium Level 1.8mg/dL (1.6-2.6) Total Bilirubin 0.2mg/dL (0.0-1.2) Aspartate Amino Transf (AST/SGOT) 31U/L (0-50) Alanine Aminotransferase (ALT/SGPT) 30U/L (0-44) Alkaline Phosphatase 82U/L (25-150) Total Protein 7.7g/dL (6.4-8.4) Albumin 3.4g/dL (3.4-5.0) Microbiology Results Microbiology LEONARDA GS (GRAM STAIN) Final 09/28/16-1323 GRAM STAIN RESULT MANY GRAM POS COCCI MANY GRAM NEG RODS LEONARDA CULT AEROBIC Preliminary 10/01/160840 Organism 1 BETA STREPTOCOCCUS GROUP B COLONY COUNT/QUANTITY HEAVY GROWTH Organism 2 STREP MITIS GROUP COLONY COUNT/QUANTITY HEAVY GROWTH BETA STREPTOCOCCUS GROUP B "Penicillin and ampicillin continues to be the drugs of choice for treatment of B-hemolytic streptoccal infections. Susceptibility testing of penicillin and other B-lactams approved by the FDA for treatment of B-hemolytic streptococcal infections need not be performed routinely. because non-susceptible isolates (ie. penicillin LEONARDA's >0.12 and ampicillin MICs >0.25 ug/ml) are extremely rare in any B-hemolytic streptococcal isolate and have not been reported for Streptococcus pyogenes. (CLSI Z925-L20 VOL.31 NO 1 2010) 2. STREP MITIS GROUP M.I.C Interp --------- ------ * AMPICILLIN <=0.25 S * CEFOTAXIME <=0.12 S * CEFTRIAXONE 0.25 S * CLINDAMYCIN <=0.25 S * ERYTHROMYCIN 2 R * LEVOFLOXACIN 1 S * LINEZOLID <=2 S * PENICILLIN-G 0.25 I * VANCOMYCIN 0.5 S ANAEROBIC CULTURE Preliminary 10/01/16-854 PRELIMINARY ID GRAM NEG GRAHAM, PROBABLE ANAEROBE CONTINUED ON NEXT PAGE RUN DATE: 10/01/16 [facility] LAB LIVE PAGE 2 RUN TIME: 854 Specimen Inquiry PHYSICIAN Patient: NEGRA MACDONALD III [id number] (Continued) Specimen: [id number] Collected: 09/28/16 Received: 09/28/16-1154 (Continued) Procedure Result Verified Site ANAEROBIC CULTURE Preliminary (continued) 10/01/16-0855 COLONY COUNT/QUANTITY MODERATE GROWTH Discharge Medications Discharge Medications Citalopram (Citalopram) 40 Mg Tablet 40 MG PO DAILY (Reported) Insulin Glargine (Lantus U100 Insulin Vial) 100 Unit/Ml Vial 12 UNIT SUBQ HS ( Reported) Lisinopril (Lisinopril) 10 Mg Tablet 10 MG PO DAILY (Reported) Metformin ER (Metformin ER) 1,000 Mg Tablet 1,000 MG PO DAILY (Reported) Metronidazole (Flagyl) 500 Mg Tablet 500 MG PO Q8 Prescribed by: SIKP HUNT MD As needed Polyethylene Glycol 3350 (Miralax) 17 Gm Powd.pack 17 GM PO DAILY PRN PRN For Constipation Prescribed by: SKIP HUNT MD Miscellaneous Medications Buprenorphine HCl/Naloxone HCl (Suboxone 8 mg-2 mg Sl Film) 1 Each Film ( Reported) Followup Plan Disposition: Patient is being discharged home to follow-up in the [facility] daily IV antibiotics through 10/09/2016. Discharge Diet: Heart Healthy Discharge Activity: Limited until seen by PCP Follow-up Provider: Shiv Bruno MD Follow-up with PCP in: 1 week Provider: Neeraj Domingo MD Follow-up in: 1 week Mid-level Provider: Glenys Doll DPM Follow-up with Mid-level in: 1 week Time spent Time spent on discharging this patient was greater than 35 minutes, over half of which was involved in counseling and coordination of care. Nadir Hunt MD Oct 02, 2016 23:31
--- NOTE | 2016-10-03 08:38 | PATH ---
SURGICAL PATHOLOGY Attending Physician:Glenys Doll CASE STATUS: Signed Out PATIENT NAME: NEGRA MACDONALD III PID: [id number] : 1975 DATE COLLECTED:09/28/2016 00:00 SPECIMEN: Toe(s), Amputation, Non-Traumatic CLINICAL HISTORY: LEFT FOOT INFECTION 1). LEFT 2ND TOE FINAL DIAGNOSIS: Second Toe, Left Foot, Amputation: Chronic active inflammation with numerous bacterial colonies involving the skin and subcutaneous tissue. Acute osteomyelitis. No evidence of malignancy. ICD10 M86.6 GROSS DESCRIPTION: The specimen is received in formalin, labeled with the patient's name and "left second toe". It consists of a toe amputation measuring 8 cm proximal to distal by 5.8 cm plantar to dorsal by 3.6 cm medial to lateral. The bony surface at the resection margin is smooth, consistent with disarticulation. The skin and soft tissue at the resection margin is dusky. There is a 3.0 x 1.7 cm ulcerated area on the plantar surface extending to the resection margin. The nail appears grossly unremarkable. Broke Beater Operator sections are submitted as follows: A-skin and soft tissue resection margin; B-bone resection margin following decalcification; C-ulcer on plantar surface; D-dusky area on dorsal surface. (HUSSAIN:[id number]) ICD-9 CODES: CPT CODES: 1: 38265, 09671 Electronically Signed Out vKng Ortiz MD [facility] [address], [place] [address] Technical component performed at [facility], [address] [place] [address] Ave[address], [place], [address]
== END 2016-10-02 17:40 | disposition home or self-care (01) | DRG 616 ==
LOC: PCC 22:45 → MOC 09-30 13:57
PROVIDERS: ADMIT Hospitalist; ATTEND Hospitalist
PROC: 0QBP0ZZ Excision of Left Metatarsal, Open Approach (ICD-10-PCS; 2016-09-28)
PROC: 0QBQ0ZZ Excision of Right Toe Phalanx, Open Approach (ICD-10-PCS; 2016-09-30)
PROC: 0Y6S0Z1 Detachment at Left 2nd Toe, High, Open Approach (ICD-10-PCS; principal; 2016-09-30 12:00)
DX: E11.621 Type 2 diabetes mellitus with foot ulcer (principal); A48.0 Gas gangrene; E11.43 Type 2 diabetes mellitus with diabetic autonomic (poly)neuropathy; N17.9 Acute kidney failure, unspecified; M86.8X7 Other osteomyelitis, ankle and foot; L97.523 Non-pressure chronic ulcer of other part of left foot with necrosis of muscle; L97.519 Non-pressure chronic ulcer of other part of right foot with unspecified severity; E11.65 Type 2 diabetes mellitus with hyperglycemia; F41.9 Anxiety disorder, unspecified; F11.99 Opioid use, unspecified with unspecified opioid-induced disorder; B95.1 Streptococcus, group B, as the cause of diseases classified elsewhere; Z16.19 Resistance to other specified beta lactam antibiotics; Z91.14 Patient's other noncompliance with medication regimen; Z89.422 Acquired absence of other left toe(s); Z79.4 Long term (current) use of insulin

== ENCOUNTER 2017-02-15 01:42 | Inpatient (IN) | payer MEDICAID, OTHER ==
[2017-02-15] VITALS (14 sets, daily range): BP systolic 97–120; BP diastolic 51–76; PULSE 75–105; RESP 10–18; O2SAT 75–100
[~2017-02-15] VITALS: Ht 182.9 cm; Wt 108.1 kg
[~2017-02-15 01:42] MED LIST: BUPR1FIL3 ORAL; CITA40TA13 PO; INSU100V7 SUBQ; LISI10TA PO; METF-496 PO; METR500T PO
--- NOTE | 2017-02-15 01:54 | ED.REPORT ---
HPI-General Illness Date of Service Feb 15, 2017 ED Provider: Nadir Gutierrez MD Pt is a 41 year old male with a history of a type I DM with peripheral nephropathy and HTN who presents to the ED complaining of left foot swelling. He c/o associated chills and foot pain. He denies fever. Pt reports he is concerned that his left foot is now infected. Pt presented to [facility] on 09/27/16 with an infected ulcer and cellulitis on his left foot as well as wet gangrene of the second digit of the left foot with full necrosis and vessel thrombosis. This was followed by amputation on 09/28/16 on the 2nd digit of the left foot. Nursing Notes Stated Complaint: L FOOT INFECTION,SWELLING Chief Complaint: Extremity Trauma Nursing Notes Reviewed: Yes Allergies: Coded Allergies: No Known Allergies (Unverified Allergy, Unknown, 02/15/17) Scheduled Citalopram (Citalopram) 40 Mg Tablet 40 MG PO DAILY Insulin Glargine (Lantus U100 Insulin Vial) 100 Unit/Ml Vial 12 UNIT SUBQ HS Lisinopril (Lisinopril) 10 Mg Tablet 10 MG PO DAILY Metformin ER (Metformin ER) 1,000 Mg Tablet 1,000 MG PO DAILY Metronidazole (Flagyl) 500 Mg Tablet 500 MG PO Q8 Miscellaneous Medications Buprenorphine HCl/Naloxone HCl (Suboxone 8 mg-2 mg Sl Film) 1 Each Film General Time Seen by MD: 01:53 Chief Complaint Other (Left foot swelling) Hx Obtained From: Patient Arrived By: Walk-in Sudden in Onset?: No Onset Occurred: Onset unknown Symptom Duration: Since onset Location: : Foot left Quality: Painful Severity: Current: Moderate Severity: Maximum: Moderate Recent Healthcare: No recent doctor visit, No recent hospitalization Similar Sx Previous: No Past Medical History Past Medical History Cellulitis Substance abuse (opiates) Anxiety Reports: Diabetes mellitus (type ii), Hypertension Past Surgical History Toe amputation (left foot) Smoking History Never Smoker Social History Alcohol Use: Denies alcohol use Drug Use: Denies drug use Other Social History: Good social support Ambulatory Status Independent Review of Systems Full Review of Systems Constitutional: Reports: Chills, Denies: Fever Musculoskeletal: Reports: Extremity pain (left foot), Extremity swelling (left foot) Complete sys rev & neg: except as marked. Physical Exam Vital Signs Vital Signs Date Time Temp Pulse Resp B/P Pulse Ox O2 Delivery O2 Flow Rate FiO2 02/15/17 05:18 36.3 76 16 105/65 95 Room Air 02/15/17 01:47 36.9 105 18 107/69 100 Room Air Initial VS: Reviewed Head / Eyes: Atraumatic, Normocephalic Neck: Supple, Full range of motion Respiratory: Breath sounds normal, Clear to auscultation, No respiratory distress Cardiovascular: Regular rate & rhythm, Heart sounds normal, Intact distal pulses Abdomen / GI: Soft, Non-tender Skin: Warm, Dry, No cyanosis Neurologic: Alert, Oriented, Nonfocal Psychiatric: Mood/affect normal, Behavior normal General/Constitutional: Awake, Alert ANKLE/FOOT: Left foot is rotten with a strong odor. Prior amputation of middle toes. Deep ulcer that is purulent. Blister present that is purulent. Patch that is purulent. Erythema from mid foot to junction of ankle. Interpretation & Diagnostics Lab Results Interpretation Result Diagram: 02/15/17 0325 02/15/17 0325 Test 02/15/17 03:25 02/15/17 05:15 White Blood Count 12.2th/mm3 (3.8-10.1) Red Blood Count 4.37mil/mm3 (4.40-5.80) Hemoglobin 10.7g/dL (13.8-17.2) Hematocrit 32.0% (41.0-50.0) Mean Corpuscular Volume 73.2fL (81-100) Mean Corpuscular Hemoglobin 24.5pg (27.0-35.0) Mean Corpuscular Hemoglobin Concent 33.4% (32.0-37.0) Red Cell Distribution Width 13.2% (12.3-15.4) Platelet Count 580bil/L (150-400) Neutrophils (%) (Auto) 68.3% (40-74) Lymphocytes (%) (Auto) 15.6% (14-46) Monocytes (%) (Auto) 10.4% (4-12) Eosinophils (%) (Auto) 3.4% (0-5) Basophils (%) (Auto) 0.5% (0-3) Erythrocyte Sedimentation Rate 97mm/hr (0-15) Hematology Comments Prothrombin Time 11.4sec (8.1-12.5) Prothromb Time International Ratio 1.06ratio Activated Partial Thromboplast Time 27.5sec (22.8-33.0) Sodium Level 126mEq/L (134-144) Potassium Level 5.0mEq/L (3.5-5.2) Chloride Level 90mEq/L (97-108) Carbon Dioxide Level 23mmol/L (18-29) Blood Urea Nitrogen 21mg/dL (6-24) Creatinine 0.92mg/dL (0.76-1.27) Estimat Glomerular Filtration Rate 97mL/min (>59) Glucose Level 305mg/dL (60-99) Lactic Acid Level 1.0mmol/L (0.4-2.0) Calcium Level 8.5mg/dL (8.5-10.1) Phosphorus Level 2.7mg/dL (2.5-4.9) Magnesium Level 1.8mg/dL (1.6-2.6) Total Bilirubin 0.3mg/dL (0.0-1.2) Aspartate Amino Transf (AST/SGOT) 20U/L (0-50) Alanine Aminotransferase (ALT/SGPT) 19U/L (0-44) Alkaline Phosphatase 137U/L (25-150) Troponin T 0.010ug/L (0.0-0.011) Pro-B-Type Natriuretic Peptide 154pg/mL (0-86) Total Protein 8.7g/dL (6.4-8.4) Albumin 3.3g/dL (3.4-5.0) Urine Color Yellow (YELLOW) Urine Appearance Clear (CLEAR,HAZY) Urine pH 6.0 (5.0-8.0) Urine Specific [place] 1.005 (1.003-1.035) Urine Protein Negativemg/dL (NEG,TRACE) Urine Glucose (UA) 500mg/dL (NEGATIVE) Urine Ketones Negativemg/dL (NEGATIVE) Urine Occult Blood Trace (NEGATIVE) Urine Nitrite Negative (NEGATIVE) Urine Bilirubin Negative (NEGATIVE) Urine Urobilinogen 1.0mg/dL (NORMAL) Urine Leukocyte Esterase Negative (NEGATIVE) Urine RBC 0-2/hpf (0-2) Urine WBC 0-5/hpf (0-5) Urine Epithelial Cells Few/hpf (NONE-MOD) Urine Crystals None seen (NONE SEEN) Urine Bacteria None/hpf (NONE-FEW) Urine Hyaline Casts None/lpf (NONE) Urine Granular Casts None seen (NONE SEEN) Urine Waxy Casts None seen (NONE SEEN) Urine Red Blood Cell Casts None seen (NONE SEEN) Urine White Blood Cell Casts None seen (NONE SEEN) Urine Mucus None seen (None Seen) Urine Trichomonas None seen (NONE SEEN) Urine Yeast None (NONE SEEN) Urinalysis Comment None Urine Culture Reflexed Not indicated ECG Interpretation ECG Interpretation: Sinus rhythm with a rate of 87 Time: 03:14 Interpreted by: ED physician X-Ray Chest Interpretation Chest Xray Interpretation: Negative View: Portable, 1 view Interpretation / Wet Read by: Wet read ED physician X-Ray Interpretation Xray Interpretation: Gas in soft tissue X-Ray Ordered: Foot left Interpretation / Wet Read by: Wet read ED physician Re-Eval/Medical Decision Med Decision/Clinical Course 41-year-old with diabetes presents with a necrotic obviously gangrenous foot with severe malodor and discharged. X-ray shows gas in the soft tissue. Discussed with Dr. Doll will operate this morning. Admitted to the medicine service on Zosyn and vancomycin. Source of Hx: Old records Time of Eval: 01:56 Re-Evaluation/Progress Note: Informed pt of plan for admission. Pt understands and agrees with plan for admission. All questions addressed. Consultation #1: Referral / Consult Name: Glenys Doll DPM Consulted With: Surgeon Call Returned at: 03:55 Safety Technician: Agrees with eval, Agrees with plan Note: Discussed pt's case. Will see pt in OR. Consultation #2: Referral / Consult Name: Chase Downs MD Consulted With: Hospitalist Call Returned at: 04:05 Safety Technician: Will see patient, Agrees with eval, Agrees with plan, Accepts admit Consultation #3: Call Returned at: 04:33 Safety Technician: Agrees with eval, Agrees with plan Note: Consult with Pharmacist. Discussed pt's case. Counseled Regarding: Diagnosis, Lab results, Need for admission Discharge & Departure Primary Impression: Diabetes mellitus Diabetes mellitus type: type 1 Diabetes mellitus complication detail: with peripheral angiopathy with gangrene Additional Impression: Gas gangrene of foot Disposition: ADMITTED TO HOSPITAL Discharge Condition All VS Reviewed: Yes Condition: Stable Referrals: Shiv Bruno MD (PCP) Scribe Attestation Portions of this note were transcribed by Madison Griffiths. I, Dr. Gutierrez personally performed the history, physical exam and medical decision-making; I reviewed and confirmed the accuracy of the information in the transcribed note. Signed by: Matty Israel, 02/15/17. copies to: Shiv Bruno MD,Nadir Lynn MD Feb 15, 2017 01:54 Madison Molina Feb 15, 2017 02:01
[2017-02-15] MEDS ORDERED: 0.9% Sodium Chloride 1,000 ML IV ONE (02:45)
[2017-02-15] MEDS ORDERED: Vancomycin Dose per Pharmacist XX ONE (02:50)
[2017-02-15] MEDS ORDERED: Piperacillin-Tazo 3.375 Gm Inj 4.5 GM in Dextrose 5% Minibag Plus 50 ML IV ONE (02:50)
[2017-02-15] MEDS ORDERED: Vancomycin Inj 2,000 MG in 0.9% Sodium Chloride 500 ML IV ONE (02:55)
[2017-02-15 03:36] LABS: BASOPHILS % (AUTO) 0.5 % (0-3); EOSINOPHILS % (AUTO) 3.4 % (0-5); MONOCYTES % (AUTO) 10.4 % (4-12); Mean Corpuscular Hemoglobin 24.5 pg (27.0-35.0); Mean Corpuscular Volume 73.2 fL (81-100); NEUTROPHILS % (AUTO) 68.3 % (40-74); Platelet Count 580 bil/L (150-400)
[2017-02-15 03:54] LABS: INR 1.06 ratio
[2017-02-15 03:56] LABS: ERYTHROCYTE SEDIMENTATION RATE 97 mm/hr (0-15)
[2017-02-15 04:10] LABS: TROPONIN T 0.01 ug/L (0.0-0.011)
[2017-02-15 04:21] LABS: Magnesium 1.8 mg/dL (1.6-2.6); Phosphorus 2.7 mg/dL (2.5-4.9)
[2017-02-15] MEDS ORDERED: Lactated Ringer's 1,000 ML IV SCH ×2 (04:27→10:30)
[2017-02-15] MEDS ORDERED: HYDROmorphone 1 mg/mL Inj IVPUSH PRN (04:30)
[2017-02-15] MEDS ORDERED: Ondansetron 2 mg/mL 2 mL Inj IVPUSH PRN ×2 (04:30→11:50)
[2017-02-15 05:30] LABS: APPEARANCE,URINE CLEAR (CLEAR,HAZY); COLOR,URINE YELLOW (YELLOW); OCCULT BLOOD,URINE TRACE (NEGATIVE)
--- NOTE | 2017-02-15 06:09 | PCM.CONPHA ---
Subjective Date of Service: Feb 15, 2017 Requesting Provider: Nadir Gutierrez MD Reason for Pharmacy Consult: Vancomycin Dosing Objective Vital Signs Date Time Temp Pulse Resp B/P Pulse Ox O2 Delivery O2 Flow Rate FiO2 02/15/17 05:18 36.3 76 16 105/65 95 Room Air 02/15/17 01:47 36.9 105 18 107/69 100 Room Air Weight (Kilograms): 111.82 Height (Feet): 6 Height (Inches): 0 Test 02/15/17 03:25 02/15/17 05:15 White Blood Count 12.2th/mm3 (3.8-10.1) Red Blood Count 4.37mil/mm3 (4.40-5.80) Hemoglobin 10.7g/dL (13.8-17.2) Hematocrit 32.0% (41.0-50.0) Mean Corpuscular Volume 73.2fL (81-100) Mean Corpuscular Hemoglobin 24.5pg (27.0-35.0) Mean Corpuscular Hemoglobin Concent 33.4% (32.0-37.0) Red Cell Distribution Width 13.2% (12.3-15.4) Platelet Count 580bil/L (150-400) Neutrophils (%) (Auto) 68.3% (40-74) Lymphocytes (%) (Auto) 15.6% (14-46) Monocytes (%) (Auto) 10.4% (4-12) Eosinophils (%) (Auto) 3.4% (0-5) Basophils (%) (Auto) 0.5% (0-3) Erythrocyte Sedimentation Rate 97mm/hr (0-15) Hematology Comments Prothrombin Time 11.4sec (8.1-12.5) Prothromb Time International Ratio 1.06ratio Activated Partial Thromboplast Time 27.5sec (22.8-33.0) Sodium Level 126mEq/L (134-144) Potassium Level 5.0mEq/L (3.5-5.2) Chloride Level 90mEq/L (97-108) Carbon Dioxide Level 23mmol/L (18-29) Blood Urea Nitrogen 21mg/dL (6-24) Creatinine 0.92mg/dL (0.76-1.27) Estimat Glomerular Filtration Rate 97mL/min (>59) Glucose Level 305mg/dL (60-99) Lactic Acid Level 1.0mmol/L (0.4-2.0) Calcium Level 8.5mg/dL (8.5-10.1) Phosphorus Level 2.7mg/dL (2.5-4.9) Magnesium Level 1.8mg/dL (1.6-2.6) Total Bilirubin 0.3mg/dL (0.0-1.2) Aspartate Amino Transf (AST/SGOT) 20U/L (0-50) Alanine Aminotransferase (ALT/SGPT) 19U/L (0-44) Alkaline Phosphatase 137U/L (25-150) Troponin T 0.010ug/L (0.0-0.011) Pro-B-Type Natriuretic Peptide 154pg/mL (0-86) Total Protein 8.7g/dL (6.4-8.4) Albumin 3.3g/dL (3.4-5.0) Urine Color Yellow (YELLOW) Urine Appearance Clear (CLEAR,HAZY) Urine pH 6.0 (5.0-8.0) Urine Specific [place] 1.005 (1.003-1.035) Urine Protein Negativemg/dL (NEG,TRACE) Urine Glucose (UA) 500mg/dL (NEGATIVE) Urine Ketones Negativemg/dL (NEGATIVE) Urine Occult Blood Trace (NEGATIVE) Urine Nitrite Negative (NEGATIVE) Urine Bilirubin Negative (NEGATIVE) Urine Urobilinogen 1.0mg/dL (NORMAL) Urine Leukocyte Esterase Negative (NEGATIVE) Urine RBC 0-2/hpf (0-2) Urine WBC 0-5/hpf (0-5) Urine Epithelial Cells Few/hpf (NONE-MOD) Urine Crystals None seen (NONE SEEN) Urine Bacteria None/hpf (NONE-FEW) Urine Hyaline Casts None/lpf (NONE) Urine Granular Casts None seen (NONE SEEN) Urine Waxy Casts None seen (NONE SEEN) Urine Red Blood Cell Casts None seen (NONE SEEN) Urine White Blood Cell Casts None seen (NONE SEEN) Urine Mucus None seen (None Seen) Urine Trichomonas None seen (NONE SEEN) Urine Yeast None (NONE SEEN) Urinalysis Comment None Urine Culture Reflexed Not indicated Assessment/Plan Assessment/Plan A: * Vancomycin dosing by pharmacy for 41 y/o diabetic man with gangrene on foot * He is also being started on Zosyn * Estimated CrCl for this patient is > 120 mL/min (Cockcroft & Gault using AdjBW ) * Estimated vancomycin half-life is 7 hours and estimated Vd is 78 liters P: * Give one vancomycin 2000 mg IV loading dose * Continue with vancomycin 1250 mg IV every 8 hours * Target a vancomycin trough range of 15 - 20 mcg/mL * Draw a trough level prior to the fourth dose of vancomycin Thank you. Pharmacy will continue to follow this patient. Connie Jaeger Feb 15, 2017 06:09
--- NOTE | 2017-02-15 07:15 | NUR ---
Arrival to floor. Pt arrived to room 249-2 via stretcher from ER. Able to stand and hop onto scale, then bed. Oriented to room and call light. left foot draining serous fluid, chucks pad in place.
--- NOTE | 2017-02-15 08:17 | DRSVH ---
PROCEDURE: X-RAY CHEST ONE VIEW, PORTABLE ([id number]) INDICATIONS: diabetic infection TECHNIQUE: One view of the chest was acquired. COMPARISON: None. FINDINGS: Surgical changes and devices: None. Lungs and pleura: No pleural effusions or pneumothorax. Lungs are clear. Mediastinum: Mediastinal contours appear normal. Heart size is normal. Bones and chest wall: No suspicious bony lesions. Overlying soft tissues appear unremarkable. IMPRESSION: No radiographic evidence of acute cardiopulmonary pathology. Dictated by: Ghassan Hickey M.D. on 02/15/2017 at 8:15 Approved by: Ghassan Hickey M.D. on 02/15/2017 at 8:16
--- NOTE | 2017-02-15 08:17 | DRSVH ---
PROCEDURE: X-RAY LEFT FOOT COMPLETE, MINIMUM THREE VIEWS ([id number]) INDICATIONS: diabetic infection TECHNIQUE: 3 views of the foot were acquired. COMPARISON: [facility], CR, XR FOOT 3VW LT, 09/28/2016, 10:01. [facility], CR, XR FOOT 3VW LT, 11/06/2015, 13:54. FINDINGS: Bones: Interval resection of the left second metatarsal head with irregularity at the resection site. Stable left third toe amputation. Mild indistinctness of the cortex in the proximal aspect of the di stal left first phalanx may represent osteomyelitis. No acute fractures or dislocations. Subluxation of the left fourth MTP joint otherwise normal left foot alignment. Soft tissues: No tibiotalar joint effusion. Achilles tendon appears normal. Soft tissue swelling a nd subcutaneous emphysema in the soft tissues of the left first toe. IMPRESSION: 1. Possible osteomyelitis in the distal phalanx of the left first toe with surrounding soft tissue sw elling and subcutaneous emphysema. 2. Interval distal second metatarsal resection with indistinctness of the remaining bone also concern ing for osteomyelitis. 3. Findings could be confirmed with a forefoot MRI with and without contrast if clinical exam is uncl ear. Dictated by: Ghassan Hickey M.D. on 02/15/2017 at 8:12 Approved by: Ghassan Hickey M.D. on 02/15/2017 at 8:15
[2017-02-15] MEDS: Vancomycin Dose per Pharmacist XX SCH (08:30)
[2017-02-15] MEDS ORDERED: BUPR1FIL7 SL (08:34)
[2017-02-15] MEDS ORDERED: HYDR50TA76 PO (08:41)
[2017-02-15] MEDS ORDERED: HYDR-3605 PO (08:41)
[2017-02-15] MEDS ORDERED: Buprenorphine 2 mg SL Tablet SL PRN (10:00)
--- NOTE | 2017-02-15 10:20 | NUR ---
To OR Pt taken via stretcher to OR. Addendum: 02/15/17 at 1423 by DANYELL CHANCE RN 1215 pt arrived back to room via stretcher from PACU. Able to scoot and transfer into bed indep. left foot wrapped with kerlix and acewrap, packed with iodiform gauze (per RN in PACU)
[2017-02-15] MEDS ORDERED: Lactated Ringer's 500 ML IV PRN (10:30)
[2017-02-15] MEDS ORDERED: EPHEDrine Sulfate 50 mg/mL Inj IVPUSH PRN (10:30)
[2017-02-15] MEDS ORDERED: fentaNYL-PF 50 mCg/mL 2 mL Inj IVPUSH PRN (10:30)
[2017-02-15] MEDS ORDERED: Lactated Ringer's 1,000 ML IV ONE ×2 (10:30→10:41)
[2017-02-15] MEDS ORDERED: Phenylephrine 10,000 mCg/mL Inj IVPUSH PRN (10:30)
[2017-02-15] MEDS ORDERED: Dexamethasone 4 mg/mL Inj IVPUSH PRN (10:30)
--- NOTE | 2017-02-15 10:30 | PCM.HPANE ---
Patient Data Surgeon Admitting Provider:Chase Downs MD Attending Provider:Duc Vaz [facility] Other Provider: Reason for Visit Diabetes, Left Gangrenous Foot Ht/WT & BMI Height (Feet): 6 Height (Inches): 0.00 Weight (Kilograms): 108.070 Body Mass Index 32.27 Allergies Coded Allergies: No Known Allergies (Unverified Allergy, Unknown, 02/15/17) Past Anesthesia History Anesthesia History: Denies:: Abnormal Airway, Anesthesia Reactions, Difficult Intubation Diabetes History Hx Diabetes?: Yes Glycemic Control: Insulin Dependent MRSA MRSA: No Medications Hypertension Medication: Yes Home Meds Incl Beta Donaldo: No Reported Medications Hydroxyzine HCl (HydrOXYzine Hcl)50 Mg [id number] Mg PO BID PRN For Anxiety Ref 0 02/15/17 Buprenorphine HCl/Naloxone HCl (Suboxone 12 mg-3 mg Sl Film)1 Each Film0.5 Each SL BID PRN For Pain Ref 0 02/15/17 Insulin Glargine (Lantus U100 Insulin Vial)100 Unit/Ml Vial12 Unit SUBQ HS #1 VIAL Ref 0 09/27/16 Metformin ER 1,000 Mg Tablet1,000 Mg PO BID Ref 0 09/27/16 Lisinopril 10 Mg Ezynss94 Mg PO DAILY 30 Days Ref 0 09/27/16 Citalopram 40 Mg Uqyfsw93 Mg PO DAILY 30 Days Ref 0 09/27/16 Buprenorphine HCl/Naloxone HCl (Suboxone 8 mg-2 mg Sl Film)1 Each Film12 Mg ORAL DAILY #7 09/27/16 Discontinued Reported Medications HydrOXYzine HCl 10 Mg Rjpwnv40 Mg PO BID PRN For Anxiety Ref 0 02/15/17 Discontinued Scripts Metronidazole (Flagyl)500 Mg Bhvntl136 Mg PO Q8 #30 TABLET Prov:Nadir Hunt MD 10/02/16 History History of ENT Problems?: No HEENT History: Denies:: Abnormal Airway Cataracts Difficult Intubation Dysphagia Glaucoma Hearing Problem Sinus Problem TMJ Denture Type: None Teeth Condition: Within Normal Limits Hx of Heart Problems?: Yes Cardiovascular History: Positive for:: Hypertension Denies:: Cardiac Surgery Chest Pain Congestive Heart Failure Edema Heart Murmur Irregular Heartbeat Pacemaker Thrombophlebitis Hx of Respiratory Problem?: No Respiratory History: Denies:: Asthma COPD Chest Surgery Cough Dyspnea Emphysema Hemoptysis Oxygen Administration Pneumonia Pulmonary Embolism Tuberculosis Use of C-PAP Machine Use of Inhalers / NEBS Hx Neurologic Problems?: No Hx of GI Problems?: No Hx of Problems?: No Male Hx: Denies:: Prostate Problems Scrotal Mass Testicular Surgery Other Skin Pertinent History: left great toe black, open, bleeding Only has big toe and small toe - others have been amputated. right foot has all toes, only tip of 2nd toe amputated Hx Musculoskeletal Problems?: No Hx of Psycho/Social Problems?: Yes Psycho Social History: Positive for:: Anxiety Denies:: Bipolar Disorder Hx Depression Suicide Attempt Hx Surgeries?: Yes (toe amputation, carpel tunnel bilat, testicle abscess, ) Hx Any Other Health Problems?: Yes Other History: Positive for:: Hospitalization (toe amputation, diabetes; cellulitis of testicles) Denies:: Cancer Thyroid Disease History Blood Transfusions: Denies:: Blood Transfuse Reaction (pt prefers to be asked when time arises to need blood transfusion) Blood Transfusions Hx Diabetes: Yes Hx Alcohol Use: YesAlcoholic Drinks Per Day: 15 months clean and soberHx Substance Use: Yes (15 months clean and sober) Smoking Status: Never Smoker Stop/Bang Treated for Sleep Apnea?: No S-Snoring: Do You Snore Loudly: No T-Tired: feel tired, fatigued: Yes O-Obsered: Observed not breath: No P-Blood Pressure: treated: Yes B- Body Mass Index > 35 kg/m2: No A- Age over 50: No N- Neck Large Circumference: No G- Gender Male: Yes LIDYA Total Score: 3 LIDYA Risk Assessment: High Risk, =/>3 Yes LIDYA Category 4 OutPt Procedure: Yes Risk Assessment Category Category 1A: Patient has history of documented sleep apnea, and HAS NOT received any narcotic, sedative or anesthesia administration during this stay. Category 1B: Patient has history of documented sleep apnea, and HAS received any narcotic , sedative or anesthesia administration during this stay Category 2: Patient has SUSPECTED Obstructive Sleep Apnea, and HAS received any narcotic , sedative or anesthesia administration during this stay. Category 3: Patient has SUSPECTED Obstructive Sleep Apnea and HAS NOT received narcotic, sedative or anesthesia administration during this stay. Category 4: Outpatient in Procedural Areas with known sleep apnea or who screen positive for High Risk via the STOP/BANG questionnaire. Exam Exam Vital Signs Vital Signs Date Time Temp Pulse Resp B/P Pulse Ox O2 Delivery O2 Flow Rate FiO2 02/15/17 05:18 36.3 76 16 105/65 95 Room Air General Appearance: Alert, Oriented X3, Cooperative, No Acute Distress HEENT/AIRWAY: MP 2 Lungs: Clear to Auscultation, Normal Air Movement Heart: Exam Unremarkable, Regular Rate/Rhythm, No Murmurs/Rubs/Gallops Meds/Labs/Diagnostics Admission Meds Current Medications Sodium Chloride 1,000 ml @ 0 mls/hr Q0M ONCE IV Last administered on 03:38; Start 02/15/17 at 02:45; Stop 02/15/17 at 02:51; Status DC Piperacillin Sod/ Tazobactam Sod 4.5 gm/Dextrose/ Water 50 ml @ 100 mls/hr ONCE ONCE IV Last administered on 02/15/17 03:45; Start 02/15/17 at 02:50; Stop 02/15/17 at 03:19; Status DC Vancomycin HCl 2000 mg/Sodium Chloride 500 ml @ 250 mls/hr OT ONCE IV Last administered on 02/15/17 04:14; Start 02/15/17 at 02:55; Stop 02/15/17 at 04:55 ; Status DC Lactated Ringer's (Lr) 1,000 ml @ 100 mls/hr Q10H IV Last administered on 02/15 09:00; Start 02/15/17 at 04:27 Labs Test 02/15/17 03:25 02/15/17 05:15 White Blood Count 12.2th/mm3 (3.8-10.1) Red Blood Count 4.37mil/mm3 (4.40-5.80) Hemoglobin 10.7g/dL (13.8-17.2) Hematocrit 32.0% (41.0-50.0) Mean Corpuscular Volume 73.2fL (81-100) Mean Corpuscular Hemoglobin 24.5pg (27.0-35.0) Mean Corpuscular Hemoglobin Concent 33.4% (32.0-37.0) Red Cell Distribution Width 13.2% (12.3-15.4) Platelet Count 580bil/L (150-400) Neutrophils (%) (Auto) 68.3% (40-74) Lymphocytes (%) (Auto) 15.6% (14-46) Monocytes (%) (Auto) 10.4% (4-12) Eosinophils (%) (Auto) 3.4% (0-5) Basophils (%) (Auto) 0.5% (0-3) Erythrocyte Sedimentation Rate 97mm/hr (0-15) Hematology Comments Prothrombin Time 11.4sec (8.1-12.5) Prothromb Time International Ratio 1.06ratio Activated Partial Thromboplast Time 27.5sec (22.8-33.0) Sodium Level 126mEq/L (134-144) Potassium Level 5.0mEq/L (3.5-5.2) Chloride Level 90mEq/L (97-108) Carbon Dioxide Level 23mmol/L (18-29) Blood Urea Nitrogen 21mg/dL (6-24) Creatinine 0.92mg/dL (0.76-1.27) Estimat Glomerular Filtration Rate 97mL/min (>59) Glucose Level 305mg/dL (60-99) Lactic Acid Level 1.0mmol/L (0.4-2.0) Calcium Level 8.5mg/dL (8.5-10.1) Phosphorus Level 2.7mg/dL (2.5-4.9) Magnesium Level 1.8mg/dL (1.6-2.6) Total Bilirubin 0.3mg/dL (0.0-1.2) Aspartate Amino Transf (AST/SGOT) 20U/L (0-50) Alanine Aminotransferase (ALT/SGPT) 19U/L (0-44) Alkaline Phosphatase 137U/L (25-150) Troponin T 0.010ug/L (0.0-0.011) Pro-B-Type Natriuretic Peptide 154pg/mL (0-86) Total Protein 8.7g/dL (6.4-8.4) Albumin 3.3g/dL (3.4-5.0) Urine Color Yellow (YELLOW) Urine Appearance Clear (CLEAR,HAZY) Urine pH 6.0 (5.0-8.0) Urine Specific [place] 1.005 (1.003-1.035) Urine Protein Negativemg/dL (NEG,TRACE) Urine Glucose (UA) 500mg/dL (NEGATIVE) Urine Ketones Negativemg/dL (NEGATIVE) Urine Occult Blood Trace (NEGATIVE) Urine Nitrite Negative (NEGATIVE) Urine Bilirubin Negative (NEGATIVE) Urine Urobilinogen 1.0mg/dL (NORMAL) Urine Leukocyte Esterase Negative (NEGATIVE) Urine RBC 0-2/hpf (0-2) Urine WBC 0-5/hpf (0-5) Urine Epithelial Cells Few/hpf (NONE-MOD) Urine Crystals None seen (NONE SEEN) Urine Bacteria None/hpf (NONE-FEW) Urine Hyaline Casts None/lpf (NONE) Urine Granular Casts None seen (NONE SEEN) Urine Waxy Casts None seen (NONE SEEN) Urine Red Blood Cell Casts None seen (NONE SEEN) Urine White Blood Cell Casts None seen (NONE SEEN) Urine Mucus None seen (None Seen) Urine Trichomonas None seen (NONE SEEN) Urine Yeast None (NONE SEEN) Urinalysis Comment None Urine Culture Reflexed Not indicated Plan Impression Patient chart reviewed, patient interviewed and anesthestic plan with risks, benefits, and alternatives discussed, and informed consent obtained. NPO per Anesth. Guidelines: Yes ASA Physical Status: ASA3 Severe Disease (ESDM) Anesthetic Plan: GA Bene/Risks/Altern/Consents: Yes HP Complete Prior to Induction: Yes Chevy Olson MD Feb 15, 2017 10:30
[2017-02-15] MEDS ORDERED: Piperacillin-Tazo 3.375 Gm Inj 3.375 GM in Dextrose 5% Minibag Plus 50 ML IV SCH ×4 (11:00)
[2017-02-15] MEDS ORDERED: Polyethylene Glycol (PEG) 17 Gm Powder PO PRN (11:50)
[2017-02-15] MEDS ORDERED: Alum-Mag Hydrox-Simeth 30 mL Suspension PO PRN (11:50)
[2017-02-15] MEDS ORDERED: Glucose 40% Oral Gel 15 Gm Tube PO PRN (11:50)
[2017-02-15] MEDS: Insulin LISPRO 300 Unit/3 mL Inj SUBQ SCH ×3 (12:00→22:02)
--- NOTE | 2017-02-15 12:15 | PCM.PODPO ---
Podiatry Operative Report Date of Service: Feb 15, 2017 Date of Service Feb 15, 2017 Pre Operative Diagnosis Wet gangrene, left foot Post Operative Diagnosis Wet gangrene, left foot Procedure Partial first ray amputation, staged, packed open with wide debridement of soft tissue and tendon and fascia to the level of the tarsal navicular, left foot Surgeon Surgeon: Glenys Doll DPM Assistants: None Indication for Procedure Wet gangrene, ascending gas in the tissues radiographs, ulceration with active purulent drainage on the plantar aspect of the first metatarsal head. Findings Wet gangrene, ascending gas, purulence, tracking along the flexor hallucis longus tendon, up to the knot of Jan. Degeneration of first metatarsophalangeal joints ligamentous structures. Lateral ulceration along the fifth metatarsal head, not extending to the joint capsule. After partial first ray amputation at the mid portion of the first metatarsal and all surrounding tissue debridement to the medial plantar arch, the infection appeared to be contained. Details of Procedure Patient was identified in the preoperative holding area and brought back to the operating room. He was placed on the operating table in supine position. Gen. anesthesia was initiated. The left lower extremity was prepped and draped in usual aseptic manner. The timeout protocol was completed in the patient's name and site of surgery confirmed. Patient's left foot was elevated and calf tourniquet inflated to 225 mmHg, making sure that the extension of the erythema has not reached that level. The gangrenous appearing great toe was disarticulated full-thickness with a #10 scalpel. Malodorous bubbling fluid was identified, distant with gas-forming bacteria, this fluid tracking was followed medially and plantarly along the flexor hallucis longus tendon. The primary ulcer measuring 1.5 x 1.5 cm was excised through skin and subcutaneous tissue, deepened through further tissue. Medial plantar fascial band and the entire flexor hallucis longus tendon proximally to the knot of Jan were resected along the way as well. A large amount of necrotic tissue was encountered and resected down to the bone where needed. After thorough debridement, irrigation with normal saline, and release of the calf tourniquet after 10 minutes, the first metatarsal was transected at the portion of the shaft with the bone saw. Once the tourniquet was released, the open wound was irrigated with normal saline once again. Bleeding vessels were cauterized, where needed. The remaining open wound measured 14 cm in length and 6 cm in width, 5 cm in depth. It was packed open with one-inch iodoform gauze, dressed with gauze fluffs and Kerlix, only moderately tightened with Juanjo wraps. There was a lateral ulceration measuring 1 x 1.5 cm adjacent to the fifth metatarsal head. This was excised through skin and subcutaneous tissue, yielding new open wound of 1.2 x 1.7 cm in size and 0.3 cm in depth. Only subcutaneous tissue was exposed here. The final dressing incorporated both open wounds. The patient was weaned off of general anesthesia and taken to the recovery room with vital signs stable and the vascular status to the left foot appearing intact for wound healing. Bedside dressing changes will be performed over the next 48-72 hours. The patient will then be brought back to the operating room for delayed closure and revision to complete the transmetatarsal amputation. Grafts, Implants: None Complications There were no periprocedural complications identified. Condition Stable Anesthetic Administered: GA Drains: None Catheters: None Output, Estimated Blood Loss: 50 ([place]) Blood Admin during surgery: No Surgical Cast or Splint: None Surgical Specimen Removed: No Specimen sent to Pathology: No Surgical Specimen description: Partial first ray amputation tissue and bone Post Operative Plan The patient will be nonweightbearing on the left foot. It is to be elevated and ice behind the knee. Daily dressing changes will be performed at the bedside, until the patient is ready for revision of the amputation level and delayed primary closure. I anticipate this to happen within 3-4 days. Glenys Doll DPM Feb 15, 2017 11:58
[2017-02-15] MEDS: Buprenorphine 2 mg SL Tablet SL SCH (12:25)
[2017-02-15] MEDS: Vancomycin Inj 1,250 MG in 0.9% Sodium Chloride 250 ML IV SCH ×2 (12:38→20:06)
--- NOTE | 2017-02-15 14:23 | NUR ---
Pain Pt reporting throbbing pain left foot. request made to MD for yvan as pt wanting to stay away from narcotic medication.
[2017-02-15] MEDS: Piperacillin-Tazo 3.375 Gm Inj 3.375 GM in Dextrose 5% Minibag Plus 50 ML IV SCH ×2 (14:43→21:57)
--- NOTE | 2017-02-15 15:15 | PCM.HPMED ---
Subjective Date of Service Feb 15, 2017 Primary Provider: Admitting Physician: Chase Downs MD [facility] Attending Physician: Duc Vaz Chief Complaint: left foot ulcer History of Present Illness: 41-year-old man with history of type 2 diabetes with peripheral neuropathy, anxiety, and heroin usage on Suboxone presents complaining of left foot swelling, pain, erythema and drainage. He reports chills but no fever. He was last hospitalized in late September of 2016 with wet gangrene of the second digit of the left foot for which underwent amputation of the 2nd digit of the left foot. He says he was following at the wound care clinic for a while and seemed to be improving. However, he has not followed with wound care clinic or any of his doctors for the past several weeks and over the past couple of weeks to several days he has has new and worsening ulceration of his left foot. Review of Systems: Constitutional: Negative, except as otherwise mentioned in the history above. Ophthalmologic: Negative, except as otherwise mentioned in the history above. Cardiovascular: Negative, except as otherwise mentioned in the history above. Respiratory: Negative, except as otherwise mentioned in the history above. Gastrointestinal: Negative, except as otherwise mentioned in the history above. Genitourinary: Negative, except as otherwise mentioned in the history above. Musculoskeletal: Negative, except as otherwise mentioned in the history above. Neurological: Negative, except as otherwise mentioned in the history above. Psychiatric: Negative, except as otherwise mentioned in the history above. Hematologic/Lymphatic: Negative, except as otherwise mentioned in the history above. Allergic/Immunologic: Negative, except as otherwise mentioned in the history above. Allergies Coded Allergies: No Known Allergies (Unverified Allergy, Unknown, 02/15/17) Home Medications Lisinopril 10 Mg PO DAILY 30 Days Buprenorphine HCl/Naloxone HCl (Suboxone 8 mg-2 mg Sl Film) 12 Mg ORAL DAILY Buprenorphine HCl/Naloxone HCl (Suboxone 12 mg-3 mg Sl Film) 6 Each SL BID PRN Citalopram 40 Mg PO DAILY Hydroxyzine HCl 50 Mg PO BID PRN Insulin Glargine (Lantus U100 Insulin Vial) 12 Unit SUBQ HS Metformin ER 1,000 Mg PO BID Exam Vital Signs & I/O Vital Sign- Last 8 Hours Date Time Temp Pulse Resp B/P Pulse Ox O2 Delivery O2 Flow Rate FiO2 02/15/17 13:15 36.6 84 16 96 Room Air 02/15/17 12:15 36.6 78 16 110/72 78 Room Air 02/15/17 12:05 79 12 110/58 99 Room Air 02/15/17 12:00 80 13 107/68 100 Room Air 02/15/17 11:55 86 12 111/63 99 Room Air 02/15/17 11:50 83 10 107/65 97 Room Air 02/15/17 11:45 86 12 97/51 97 Room Air 02/15/17 11:40 84 12 108/56 100 Simple Mask 8 02/15/17 11:35 36.3 80 12 111/60 100 Simple Mask 8 Intake and Output- Last 8 Hour 02/15/17 Cumulative From/Thru 07:00 02/15/17 01:47 - 02/15/17 03:39 Intake Total 1000 ml 1000 ml Balance 1000 ml 1000 ml Intake IV Total 1000 ml 1000 ml Lab & Micro Results Laboratory Tests Test 02/15/17 03:25 02/15/17 05:15 White Blood Count 12.2th/mm3 (3.8-10.1) Red Blood Count 4.37mil/mm3 (4.40-5.80) Hemoglobin 10.7g/dL (13.8-17.2) Hematocrit 32.0% (41.0-50.0) Mean Corpuscular Volume 73.2fL (81-100) Mean Corpuscular Hemoglobin 24.5pg (27.0-35.0) Mean Corpuscular Hemoglobin Concent 33.4% (32.0-37.0) Red Cell Distribution Width 13.2% (12.3-15.4) Platelet Count 580bil/L (150-400) Neutrophils (%) (Auto) 68.3% (40-74) Lymphocytes (%) (Auto) 15.6% (14-46) Monocytes (%) (Auto) 10.4% (4-12) Eosinophils (%) (Auto) 3.4% (0-5) Basophils (%) (Auto) 0.5% (0-3) Erythrocyte Sedimentation Rate 97mm/hr (0-15) Hematology Comments Prothrombin Time 11.4sec (8.1-12.5) Prothromb Time International Ratio 1.06ratio Activated Partial Thromboplast Time 27.5sec (22.8-33.0) Sodium Level 126mEq/L (134-144) Potassium Level 5.0mEq/L (3.5-5.2) Chloride Level 90mEq/L (97-108) Carbon Dioxide Level 23mmol/L (18-29) Blood Urea Nitrogen 21mg/dL (6-24) Creatinine 0.92mg/dL (0.76-1.27) Estimat Glomerular Filtration Rate 97mL/min (>59) Glucose Level 305mg/dL (60-99) Lactic Acid Level 1.0mmol/L (0.4-2.0) Calcium Level 8.5mg/dL (8.5-10.1) Phosphorus Level 2.7mg/dL (2.5-4.9) Magnesium Level 1.8mg/dL (1.6-2.6) Total Bilirubin 0.3mg/dL (0.0-1.2) Aspartate Amino Transf (AST/SGOT) 20U/L (0-50) Alanine Aminotransferase (ALT/SGPT) 19U/L (0-44) Alkaline Phosphatase 137U/L (25-150) Troponin T 0.010ug/L (0.0-0.011) Pro-B-Type Natriuretic Peptide 154pg/mL (0-86) Total Protein 8.7g/dL (6.4-8.4) Albumin 3.3g/dL (3.4-5.0) Urine Color Yellow (YELLOW) Urine Appearance Clear (CLEAR,HAZY) Urine pH 6.0 (5.0-8.0) Urine Specific [place] 1.005 (1.003-1.035) Urine Protein Negativemg/dL (NEG,TRACE) Urine Glucose (UA) 500mg/dL (NEGATIVE) Urine Ketones Negativemg/dL (NEGATIVE) Urine Occult Blood Trace (NEGATIVE) Urine Nitrite Negative (NEGATIVE) Urine Bilirubin Negative (NEGATIVE) Urine Urobilinogen 1.0mg/dL (NORMAL) Urine Leukocyte Esterase Negative (NEGATIVE) Urine RBC 0-2/hpf (0-2) Urine WBC 0-5/hpf (0-5) Urine Epithelial Cells Few/hpf (NONE-MOD) Urine Crystals None seen (NONE SEEN) Urine Bacteria None/hpf (NONE-FEW) Urine Hyaline Casts None/lpf (NONE) Urine Granular Casts None seen (NONE SEEN) Urine Waxy Casts None seen (NONE SEEN) Urine Red Blood Cell Casts None seen (NONE SEEN) Urine White Blood Cell Casts None seen (NONE SEEN) Urine Mucus None seen (None Seen) Urine Trichomonas None seen (NONE SEEN) Urine Yeast None (NONE SEEN) Urinalysis Comment None Urine Culture Reflexed Not indicated Microbiology 02/15/17 Blood Culture, Received Pending 02/15/17 Gram Stain - Final, Resulted 02/15/17 Culture & Sensitivity, Resulted Pending 02/15/17 Anaerobic Culture, Resulted Pending Result Diagram: 02/15/17 0325 02/15/17 0325 PMH 1. Wet gangrene of the second digit of the left foot, full necrosis, vessel thrombosis post amputation 09/28/2016 and placement of wound VAC to left second lower extremity digit at that time 2. Diabetes Mellitus, Type 2, with peripheral nephropathy 3. History of opioid abuse, on Subutex 4. Anxiety Surgical History Left third digit amputation on 12/2015. Skin graft for testicular infection Wet gangrene of the second digit of the left foot, full necrosis, vessel thrombosis post amputation 09/28/2016 Family History Parents healthy. All grandparents on both sides had DM. 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 External ears without defect. Pupils equal, round, and reactive to light and accommodation. Anicteric sclerae, moist conjunctivae, and no lid lag. Oropharynx free of erythema and cobble stoning with moist mucosa. Neck: Supple with full range of motion. Cardiovascular: Regular rate and rhythm with no murmurs Pulmonary: Clear to auscultation bilaterally with no crackles, wheezes, or rhonchi. Normal respiratory effort with no use of accessory muscles. Abdomen: Bowel tones present. Soft, nontender, nondistended. Left lower extremity: Purulent, foul smelling drainage noted. Prior amputations noted. Large open ulcer at the plantar side. Right LE: normal exam. Neurological: Cranial nerves grossly intact. Normal muscle strength, tone, and bulk. Psychiatric: Normal mood and affect. Alert and oriented to person, place, and time. Lab and Diagnostics Result Diagram: 02/15/1732402/15/17324 X-Rays, CTs and MRIs Date of Service: 02/15/17244 PROCEDURE: X-RAY LEFT FOOT COMPLETE, MINIMUM THREE VIEWS ([id number]) IMPRESSION: 1. Possible osteomyelitis in the distal phalanx of the left first toe with surrounding soft tissue swelling and subcutaneous emphysema. 2. Interval distal second metatarsal resection with indistinctness of the remaining bone also concerning for osteomyelitis. 3. Findings could be confirmed with a forefoot MRI with and without contrast if clinical exam is unclear. Dictated by: Ghassan Hickey M.D. on 02/15/2017 at 8:12 Approved by: Ghassan Hickey M.D. on 02/15/2017 at 8:15 Date of Service: 02/15/17244 PROCEDURE: X-RAY CHEST ONE VIEW, PORTABLE ([id number]) IMPRESSION: No radiographic evidence of acute cardiopulmonary pathology. Dictated by: Ghassan Hickey M.D. on 02/15/2017 at 8:15 Approved by: Ghassan Hickey M.D. 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 # Acute wet gangrene of left foot with possible associated osteomyelitis, present on admission - Wound culture in 12/2015 was positive for MRSA and in September 2016 Beta Strep Group B - Will continue Zosyn and Vancomycin (dosing per pharmacy) started in ED - Podiatry consulted and will followup with recs. Tentative plan is for surgery and partial amputation on 02/15/17 - Consider consulting infectious disease for antibiotic guidance post surgery - Continue with supportive care # Diabetes Mellitus, Type 2, with peripheral nephropathy. Uncontrolled. Chronic. - HgA1C - Hold home Metformin. - Lispro correctional scale in the hospital. - Continue home dose Lantus # Acute hyponatremia, present on admission - IV fluid - Followup repeat labs in AM # History of opioid abuse, presume stable. - Convert home Suboxone to Subutex per pharmacy - Motrin prn for pain - May give additional Subutex prn for pain # Anxiety, chronic, presume stable. - Continue home Citalopram. Dispo: 2-4 days GI Prophylaxis: Not indicated VTE Prophylaxis: Sub-Q Heparin (Unfractionated) Resuscitation Status: CPR: Attempt Resuscitation (discussed and verified with patient) Time spent 60 min Duc Vaz Feb 15, 2017 15:15 greater than 2 midnights due to severity of presenting symptoms, risk of adverse event, and complexity of treatment plan. Duc Vaz Feb 15, 2017 15:15
--- NOTE | 2017-02-15 19:25 | NUR ---
pain/dressing/ Pt reported motrin helped with the throbbing pain post surgery. dressing left foot, placed in surgery, remains intact. No drainage noted. Tolerating food/fluids, voiding without difficulty
[2017-02-15] MEDS ORDERED: Insulin GLARgine 100 Unit/mL Syringe SUBQ SCH (22:05)
[2017-02-16] MEDS ORDERED: Vancomycin Serum Trough XX ONE (03:30)
[2017-02-16 03:41] LABS: BASOPHILS % (AUTO) 0.6 % (0-3); EOSINOPHILS % (AUTO) 5.8 % (0-5); MONOCYTES % (AUTO) 11.3 % (4-12); Mean Corpuscular Hemoglobin 24.3 pg (27.0-35.0); Mean Corpuscular Volume 72.4 fL (81-100); NEUTROPHILS % (AUTO) 58.5 % (40-74); Platelet Count 513 bil/L (150-400)
[2017-02-16] MEDS: Vancomycin Inj 1,500 MG in 0.9% Sodium Chloride 500 ML IV SCH ×3 (04:56→21:00)
--- NOTE | 2017-02-16 05:02 | PCM.PHAPRO ---
Progress Date of Service: Feb 16, 2017 left foot ulcer Vancomycin dosing management by pharmacy for 41 y/o man with gangrene of foot A: * The patient was receiving vancomycin 1250 mg IV every 8 hours * Pre-steady state vancomycin trough level prior to the fourth dose this morning was low at 12.3 mcg/mL * He is also on Zosyn * Serum creatinine appears to be stable so far * Cultures are pending P: * Increase vancomycin dose to 1500 mg IV every 8 hours * Continue to target a vancomycin trough range of 15 - 20 mcg/mL * Draw another trough level after 4 more doses of vancomycin * Follow renal function and cultures Thank you. Pharmacy will continue to follow this patient. Connie Jaeger Feb 16, 2017 05:02
[2017-02-16 05:05] VITALS: BP 106/62; PULSE 77; RESP 17; O2SAT 98
--- NOTE | 2017-02-16 06:16 | NUR ---
Shift Note assumed pt care at 1900, pt continues with intermittent IV antiobiotics, left foot surgical site with dressing noted, scant old drain, NWB on LLE, BG at HS at 354 obtained order for home lantus dose, given 12units, 3am recheck BG at 206, call light in reach at all times.
[2017-02-16] MEDS: Piperacillin-Tazo 3.375 Gm Inj 3.375 GM in Dextrose 5% Minibag Plus 50 ML IV SCH ×2 (06:42→17:19)
[2017-02-16] MEDS: Buprenorphine 2 mg SL Tablet SL SCH (07:45)
[2017-02-16] MEDS: Heparin 5,000 Unit/mL Inj SUBQ SCH ×2 (07:46→17:19)
[2017-02-16] MEDS ORDERED: Propofol 10,000 mCg/mL 20 mL Inj ONE (07:59)
[2017-02-16] MEDS ORDERED: Ketamine 10 mg/mL 20 mL Inj ONE (07:59)
[2017-02-16] MEDS: Vancomycin Dose per Pharmacist XX SCH (08:30)
[2017-02-16] MEDS: Insulin LISPRO 300 Unit/3 mL Inj SUBQ SCH (09:33)
--- NOTE | 2017-02-16 10:47 | NUR ---
Social Work: Screening/Multidisciplinary Rounds D: EMR reviewed. Pt is a 41 y/o male admitted [place] with a readmit risk score of 4 for diabetes, left gangrenous foot per H&P. Pt's insurance is Medicaid and [facility]. Pt's NOK is father Rigo Bee ([phone]). Pt discussed in multidisciplinary rounds. Per MD, pt is likely to remain in hospital for 2-3 more days pending podiatry. Per MD, if pt is deemed non-weight bearing, pt will need HH. SW will continue to follow MD and Podiatry recommendations. A: Pt who is independent at baseline P: Pt likely to discharge home via POV. SW to follow recommendations for possible home health pending Podiatry and MD. STACEY Dangelo Addendum: 02/16/17 at 1812 by TOMY DICKEY Pt lives at home with his spouse in [place].
--- NOTE | 2017-02-16 11:30 | PCM.PNPOD ---
Subjective Date of Service: Feb 16, 2017 Visit Information: Reason for Visit Diabetes, Left Gangrenous Foot Surgery/Surgery Date Partial first ray amputation and deep debridement of soft tissue and fascia, left foot, 02/15/17. Post-Op Day # 1 Date of Admission: Feb 15, 2017 at 05:20 Subjective: Patient was seen at bedside, resting comfortably. No complaints. He got up to go to the bathroom and used a walker. He uses heel-touch weightbearing. Postop General: No Complaints Gastrointestinal: Good Appetite Pain Management: PO, Good Pain Control Neurological: Numbness (peripheral neuropathy) Postop Activity: Ambulates with Assist Device Objective Vital Sign - Last Date Time Temp Pulse Resp B/P Pulse Ox O2 Delivery O2 Flow Rate FiO2 02/16/17 05:05 36.6 77 17 106/62 98 Room Air 02/15/17 11:40 8 Intake and Output 02/15/17 02/15/17 02/16/17 Cumulative From/Thru 15:00 23:00 07:00 02/15/17 01:47 - 02/16/17 05:57 Intake Total 500 ml 1336 ml 1060 ml 3896 ml Output Total 50 ml 1900 ml 2000 ml 3950 ml Balance 450 ml -564 ml -940 ml -54 ml Intake Oral 1000 ml 750 ml 1750 ml IV Total 500 ml 336 ml 310 ml 2146 ml Output Urine Total 1900 ml 2000 ml 3900 ml Estimated Blood Loss 50 ml 50 ml # Bowel Movements 0 0 Result Diagram: 02/16/17 0330 02/16/17 0330 Lab Test 02/15/17 03:25 02/15/17 05:15 02/16/17 03:30 Erythrocyte Sedimentation Rate 97mm/hr (0-15) Hematology Comments Prothrombin Time 11.4sec (8.1-12.5) Prothromb Time International Ratio 1.06ratio Activated Partial Thromboplast Time 27.5sec (22.8-33.0) Lactic Acid Level 1.0mmol/L (0.4-2.0) Phosphorus Level 2.7mg/dL (2.5-4.9) Magnesium Level 1.8mg/dL (1.6-2.6) Total Bilirubin 0.3mg/dL (0.0-1.2) Aspartate Amino Transf (AST/SGOT) 20U/L (0-50) Alanine Aminotransferase (ALT/SGPT) 19U/L (0-44) Alkaline Phosphatase 137U/L (25-150) Troponin T 0.010ug/L (0.0-0.011) Pro-B-Type Natriuretic Peptide 154pg/mL (0-86) Total Protein 8.7g/dL (6.4-8.4) Albumin 3.3g/dL (3.4-5.0) Urine Color Yellow (YELLOW) Urine Appearance Clear (CLEAR,HAZY) Urine pH 6.0 (5.0-8.0) Urine Specific [place] 1.005 (1.003-1.035) Urine Protein Negativemg/dL (NEG,TRACE) Urine Glucose (UA) 500mg/dL (NEGATIVE) Urine Ketones Negativemg/dL (NEGATIVE) Urine Occult Blood Trace (NEGATIVE) Urine Nitrite Negative (NEGATIVE) Urine Bilirubin Negative (NEGATIVE) Urine Urobilinogen 1.0mg/dL (NORMAL) Urine Leukocyte Esterase Negative (NEGATIVE) Urine RBC 0-2/hpf (0-2) Urine WBC 0-5/hpf (0-5) Urine Epithelial Cells Few/hpf (NONE-MOD) Urine Crystals None seen (NONE SEEN) Urine Bacteria None/hpf (NONE-FEW) Urine Hyaline Casts None/lpf (NONE) Urine Granular Casts None seen (NONE SEEN) Urine Waxy Casts None seen (NONE SEEN) Urine Red Blood Cell Casts None seen (NONE SEEN) Urine White Blood Cell Casts None seen (NONE SEEN) Urine Mucus None seen (None Seen) Urine Trichomonas None seen (NONE SEEN) Urine Yeast None (NONE SEEN) Urinalysis Comment None Urine Culture Reflexed Not indicated White Blood Count 9.0th/mm3 (3.8-10.1) Red Blood Count 3.99mil/mm3 (4.40-5.80) Hemoglobin 9.7g/dL (13.8-17.2) Hematocrit 28.9% (41.0-50.0) Mean Corpuscular Volume 72.4fL (81-100) Mean Corpuscular Hemoglobin 24.3pg (27.0-35.0) Mean Corpuscular Hemoglobin Concent 33.6% (32.0-37.0) Red Cell Distribution Width 13.5% (12.3-15.4) Platelet Count 513bil/L (150-400) Neutrophils (%) (Auto) 58.5% (40-74) Lymphocytes (%) (Auto) 21.7% (14-46) Monocytes (%) (Auto) 11.3% (4-12) Eosinophils (%) (Auto) 5.8% (0-5) Basophils (%) (Auto) 0.6% (0-3) Sodium Level 133mEq/L (134-144) Potassium Level 5.2mEq/L (3.5-5.2) Chloride Level 100mEq/L (97-108) Carbon Dioxide Level 25mmol/L (18-29) Blood Urea Nitrogen 16mg/dL (6-24) Creatinine 0.87mg/dL (0.76-1.27) Estimat Glomerular Filtration Rate 103mL/min (>59) Glucose Level 242mg/dL (60-99) Calcium Level 8.5mg/dL (8.5-10.1) Vancomycin Level Trough 12.3mcg/mL Exam Lungs: Clear to Auscultation, Normal Air Movement Cardiac: Regular Rate/Rhythm, No Murmurs/Rubs/Gallops Lower Extremities: Right: Edema localized (left forefoot, improved. ) Extremity warm (erythema reduced. ) Lower Extremity Pulses: Palpable: Left Dorsalis Pedis Left Posterior Tibal Right Dorsalis Pedis Right Posterior Tibal Podiatry WOUND : Wound Location/Description No new necrosis, no purulence. Left medial 1st ray partial amputation would is open, healthy appearing. No change in size or depth yet. Some areas of coagulated blood, but no active bleeding. No wounds on right foot. Surgical Cast or Splint: None Assessment & Plan Problems: (1) Gas gangrene of foot Plan: The wound was irrigated today, redressed with saline moistened gauze, Kerlix, and Juanjo wrap . Dr. Park to see the patient tomorrow discuss options. He has a longer standing relationship with the patient and the patient would like his input. We either convert to Transmetatarsal amputation during this hospitalization, which is my recommendation, or apply a negative pressure dressing and gradually allow the medial aspect to close before converting to TMA. The current amputation level is not stable for future ambulation and, given this patient's history of poor outpatient follow up and compliance, he would not do well with it. Status: Acute ICD Code: A48.0 VTE Prophylaxis: Sub-Q Heparin (Unfractionated) Glenys Doll DPM Feb 16, 2017 11:30 Status: Acute ICD Code: E11.9 VTE Prophylaxis: Sub-Q Heparin (Unfractionated) Glenys Doll DPM Feb 16, 2017 11:30
[2017-02-16 12:15] VITALS: BP 105/65; PULSE 71; RESP 16; O2SAT 96
[2017-02-16] MEDS ORDERED: Insulin LISPRO Medium-Dose Scale SUBQ PRN (12:55)
[2017-02-16] MEDS ORDERED: Dextrose 10% 250 ML IV PRN (13:00)
[2017-02-16] MEDS: Insulin LISPRO Medium-Dose Scale SUBQ SCH ×3 (13:05→20:58)
--- NOTE | 2017-02-16 14:19 | PCM.PNMED ---
Subjective Date of Service Feb 16, 2017 Subjective Denies any new issues/complaints. Pain well controlled. Exam Vital Signs Vital Sign - Last Date Time Temp Pulse Resp B/P Pulse Ox O2 Delivery O2 Flow Rate FiO2 02/16/17 05:05 36.6 77 17 106/62 98 Room Air 02/15/17 11:40 8 Intake and Output 02/15/17 02/15/17 02/16/17 Cumulative From/Thru 14:59 22:59 06:59 02/15/17 01:47 - 02/16/17 05:57 Intake Total 500 ml 1336 ml 1060 ml 3896 ml Output Total 50 ml 1900 ml 2000 ml 3950 ml Balance 450 ml -564 ml -940 ml -54 ml Intake Oral 1000 ml 750 ml 1750 ml IV Total 500 ml 336 ml 310 ml 2146 ml Output Urine Total 1900 ml 2000 ml 3900 ml Estimated Blood Loss 50 ml 50 ml # Bowel Movements 0 0 General: Alert, Oriented X3, Cooperative, No Acute Distress Head: Normal Eyes: Scleral Anicteric Nose: Mucous Membr Moist/Breaks Mouth: Mucous Membr Moist/Breaks Neck: Supple Chest & Lungs: Chest Wall Normal, Clear to auscultation & percussion Cardiovascular: Regular Rate/Rhythm Pulses: NL carotid, radial, femoral, DP, PT Abdomen: Non-tender, Non-distended, Normoactive bowel tones, Soft Extremities: No cyanosis/clubbing/edma bilat, Other (lef foot in dressing. dry , clean, intact) Neurological: Grossly Neurologically Intact, Normal Speech IVs and Medications Medications Reviewed: Medications were reviewed in detail Lab and Diagnostics Result Diagram: 02/16/1732902/16/17 033 X-Rays, CTs and MRIs Date of Service: 02/15/17 0245 PROCEDURE: X-RAY LEFT FOOT COMPLETE, MINIMUM THREE VIEWS ([id number]) IMPRESSION: 1. Possible osteomyelitis in the distal phalanx of the left first toe with surrounding soft tissue swelling and subcutaneous emphysema. 2. Interval distal second metatarsal resection with indistinctness of the remaining bone also concerning for osteomyelitis. 3. Findings could be confirmed with a forefoot MRI with and without contrast if clinical exam is unclear. Dictated by: Ghassan Hickey M.D. on 02/15/2017 at 8:12 Approved by: Ghassan Hickey M.D. on 02/15/2017 at 8:15 Date of Service: 02/15/17 0245 PROCEDURE: X-RAY CHEST ONE VIEW, PORTABLE ([id number]) IMPRESSION: No radiographic evidence of acute cardiopulmonary pathology. Dictated by: Ghassan Hickey M.D. on 02/15/2017 at 8:15 Approved by: Ghassan Hickey M.D. 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 # Acute wet gangrene of left foot with possible associated osteomyelitis, present on admission - Post partial first ray amputation, staged, packed open with wide debridement of soft tissue and tendon and fascia to the level of the tarsal navicular, left foot on 02/15/17 - Appreciate podiatry consult. Will followup with recs - Continue Zosyn and Vancomycin (dosing per pharmacy) started in ED - Followup pending cultures. - Consider consulting infectious disease for antibiotic guidance post surgery - Continue with supportive care # Diabetes Mellitus, Type 2, with peripheral nephropathy. Uncontrolled. Chronic. - HgA1C - Hold home Metformin. - Lispro correctional scale in the hospital. Increase to medium dose - Continue home dose Lantus # Acute hyponatremia, present on admission. Improving - IV fluid - Followup repeat labs in AM # History of opioid abuse, presume stable. - Convert home Suboxone to Subutex per pharmacy - Motrin prn for pain - May give additional Subutex prn for pain # Anxiety, chronic, presume stable. - Continue home Citalopram. Dispo: 1-2 days GI Prophylaxis: Not indicated VTE Prophylaxis: Sub-Q Heparin (Unfractionated) Resuscitation Status: CPR: Attempt Resuscitation (discussed and verified with patient) Duc Vaz Feb 16, 2017 14:19
[2017-02-16 18:03] VITALS: BP 111/70; PULSE 75; RESP 16; O2SAT 97
--- NOTE | 2017-02-16 18:06 | NUR ---
Ambulation/Pain Pt up to Bathroom w/ walker, jesus well as NWB. Pain well managed w/ estela subutex, did not require any prn
[2017-02-16 19:53] VITALS: BP 126/78; PULSE 90; RESP 16; O2SAT 99
[2017-02-16] MEDS: Insulin GLARgine 100 Unit/mL Syringe SUBQ SCH (20:58)
[2017-02-17] MEDS: Heparin 5,000 Unit/mL Inj SUBQ SCH ×3 (00:47→16:48)
[2017-02-17] MEDS: Piperacillin-Tazo 3.375 Gm Inj 3.375 GM in Dextrose 5% Minibag Plus 50 ML IV SCH ×3 (02:17→17:52)
[2017-02-17] MEDS: Vancomycin Inj 1,500 MG in 0.9% Sodium Chloride 500 ML IV SCH (05:13)
[2017-02-17 05:54] VITALS: BP 106/68; PULSE 74; RESP 16; O2SAT 96
[2017-02-17] MEDS: Insulin LISPRO Medium-Dose Scale SUBQ SCH ×4 (08:51→21:10)
[2017-02-17] MEDS: Buprenorphine 2 mg SL Tablet SL SCH (09:48)
[2017-02-17 09:52] VITALS: BP 101/59; PULSE 81; RESP 18; O2SAT 97
--- NOTE | 2017-02-17 11:12 | NUR ---
Social Work-continued d/c planning: Data:EMR Reviewed. Pt is on day 2 of hospitalization for diabetes per H&P. Pt is not medically stable anticipate several more days. Podiatry, Dr. Park and ID to see pt today and create plan of care. SW to follow for any MD orders and needs. SW will continue to follow. Assessment:pt who is independent at baseline. Plan:Pt to discharge home when medically stable via pOV. Podiatry and ID both pending. SW to follow for any MD orders and needs. SW will continue to follow. STACEY Edwards
--- NOTE | 2017-02-17 11:40 | PCM.PNPOD ---
Subjective Date of Service: Feb 17, 2017 Date of Service: Feb 17, 2017 Visit Information: Reason for Visit Diabetes, Left Gangrenous Foot Surgery/Surgery Date Post-Op Day # Date of Admission: Feb 15, 2017 at 05:20 Hospital Day # Subjective: This 41-year-old male is seen at his request to discuss the proposal by Dr. Doll to proceed with transmetatarsal amputation of the left foot. Patient is known to me, and has had numerous hospitalizations due to infections and ulcerations. This patient has had amputation of the second and third toes as well as partial first ray resection due to gangrene, on 02/15/2017. feels that the in the next day or 2 she may proceed with transmetatarsal amputation. Patient is seen resting comfortably in his bed on MOC. The wound is not assessed by me at this visit. Objective Vital Sign - Last Date Time Temp Pulse Resp B/P Pulse Ox O2 Delivery O2 Flow Rate FiO2 02/17/17 09:52 36.6 81 18 101/59 97 Room Air 02/16/17 19:53 8.00 Intake and Output 02/16/17 02/16/17 02/17/17 Cumulative From/Thru 15:00 23:00 07:00 02/15/17 01:47 - 02/17/17 06:17 Intake Total 1486 ml 357 ml 5739 ml Output Total 1800 ml 5750 ml Balance -314 ml 357 ml -11 ml Intake Oral 800 ml 2550 ml IV Total 686 ml 357 ml 3189 ml Output Urine Total 1800 ml 5700 ml Estimated Blood Loss 50 ml # Bowel Movements 0 Result Diagram: 02/16/17 0330 02/17/17 0625 Lab Test 02/15/17 03:25 02/15/17 05:15 02/16/17 03:30 02/17/17 06:25 Erythrocyte Sedimentation Rate 97mm/hr (0-15) Hematology Comments Prothrombin Time 11.4sec (8.1-12.5) Prothromb Time International Ratio 1.06ratio Activated Partial Thromboplast Time 27.5sec (22.8-33.0) Hemoglobin A1c 12.0% (4.8-5.6) Lactic Acid Level 1.0mmol/L (0.4-2.0) Phosphorus Level 2.7mg/dL (2.5-4.9) Magnesium Level 1.8mg/dL (1.6-2.6) Total Bilirubin 0.3mg/dL (0.0-1.2) Aspartate Amino Transf (AST/SGOT) 20U/L (0-50) Alanine Aminotransferase (ALT/SGPT) 19U/L (0-44) Alkaline Phosphatase 137U/L (25-150) Troponin T 0.010ug/L (0.0-0.011) Pro-B-Type Natriuretic Peptide 154pg/mL (0-86) Total Protein 8.7g/dL (6.4-8.4) Albumin 3.3g/dL (3.4-5.0) Urine Color Yellow (YELLOW) Urine Appearance Clear (CLEAR,HAZY) Urine pH 6.0 (5.0-8.0) Urine Specific [place] 1.005 (1.003-1.035) Urine Protein Negativemg/dL (NEG,TRACE) Urine Glucose (UA) 500mg/dL (NEGATIVE) Urine Ketones Negativemg/dL (NEGATIVE) Urine Occult Blood Trace (NEGATIVE) Urine Nitrite Negative (NEGATIVE) Urine Bilirubin Negative (NEGATIVE) Urine Urobilinogen 1.0mg/dL (NORMAL) Urine Leukocyte Esterase Negative (NEGATIVE) Urine RBC 0-2/hpf (0-2) Urine WBC 0-5/hpf (0-5) Urine Epithelial Cells Few/hpf (NONE-MOD) Urine Crystals None seen (NONE SEEN) Urine Bacteria None/hpf (NONE-FEW) Urine Hyaline Casts None/lpf (NONE) Urine Granular Casts None seen (NONE SEEN) Urine Waxy Casts None seen (NONE SEEN) Urine Red Blood Cell Casts None seen (NONE SEEN) Urine White Blood Cell Casts None seen (NONE SEEN) Urine Mucus None seen (None Seen) Urine Trichomonas None seen (NONE SEEN) Urine Yeast None (NONE SEEN) Urinalysis Comment None Urine Culture Reflexed Not indicated White Blood Count 9.0th/mm3 (3.8-10.1) Red Blood Count 3.99mil/mm3 (4.40-5.80) Hemoglobin 9.7g/dL (13.8-17.2) Hematocrit 28.9% (41.0-50.0) Mean Corpuscular Volume 72.4fL (81-100) Mean Corpuscular Hemoglobin 24.3pg (27.0-35.0) Mean Corpuscular Hemoglobin Concent 33.6% (32.0-37.0) Red Cell Distribution Width 13.5% (12.3-15.4) Platelet Count 513bil/L (150-400) Neutrophils (%) (Auto) 58.5% (40-74) Lymphocytes (%) (Auto) 21.7% (14-46) Monocytes (%) (Auto) 11.3% (4-12) Eosinophils (%) (Auto) 5.8% (0-5) Basophils (%) (Auto) 0.6% (0-3) Vancomycin Level Trough 12.3mcg/mL Sodium Level 133mEq/L (134-144) Potassium Level 5.3mEq/L (3.5-5.2) Chloride Level 99mEq/L (97-108) Carbon Dioxide Level 25mmol/L (18-29) Blood Urea Nitrogen 13mg/dL (6-24) Creatinine 0.74mg/dL (0.76-1.27) Estimat Glomerular Filtration Rate 125mL/min (>59) Glucose Level 253mg/dL (60-99) Calcium Level 8.4mg/dL (8.5-10.1) Diagnostics X-rays have been reviewed, and film from 02/15/2017 does show osteomyelitic hallux and edematous soft tissues which underwent subsequent partial first ray resection. Exam Lungs: Clear to Auscultation, Normal Air Movement Cardiac: Regular Rate/Rhythm, No Murmurs/Rubs/Gallops Lower Extremities: Right: Edema localized (left forefoot, improved. ) Extremity warm (erythema reduced. ) Lower Extremity Pulses: Palpable: Left Dorsalis Pedis Left Posterior Tibal Right Dorsalis Pedis Right Posterior Tibal Surgical Cast or Splint: None Additional Information: The wound is not assessed, left foot is noted to be bandaged and the bandages clean and dry. Assessment & Plan Impression Resolving soft tissue infection left foot in a patient who had gangrenous hallux and subsequently underwent partial first ray resection by Dr. Doll on 02/15. Patient is also status post prior amputations of the second and third digits of the left foot leaving a fairly non-functional and ulcerogenic left forefoot. Problems: (1) Gas gangrene of foot Status: Acute ICD Code: A48.0 Plan At this visit I essentially just had a conversation with the patient based on my review of x-rays and discussion with Dr. Doll and do feel that transmetatarsal amputation is clearly in his best interest at this point, and did review details of the procedure, expected appearance of the foot postoperatively, need for prosthetic toe filler and possible gastrocnemius recession or Achilles triple hemisection lengthening to reduce potential for stump breakdown in the future, which may be performed at the time of the primary procedure or at a later date. Overall I do feel this is a very functional level of amputation and would significantly reduce if not completely alleviate the potential for further tissue breakdown, and that although the prospect of losing all the toes is difficult, it is the choice I would make for myself were I in his position. Patient did seem comforted and more comfortable with this course of action and states he will discuss it with his and this evening. VTE Prophylaxis: Sub-Q Heparin (Unfractionated) [place] DPM Feb 17, 2017 11:40
[2017-02-17] MEDS ORDERED: Vancomycin Serum Trough XX ONE (12:30)
[2017-02-17 14:00] VITALS: BP 100/71; PULSE 72; RESP 16; O2SAT 98
--- NOTE | 2017-02-17 14:38 | NUR ---
Inpatient Wound Nurse Order was placed for inpatient wound nurse harrison of L foot wound. Conversation was completed with Dr. Doll who stated that no inpatient wound care from [facility] RN is needed at this time and that she will advise this [facility] RN if any is needed. For now, Dr. Doll will handle all wound care.
[2017-02-17] MEDS: DAPTOmycin Inj 750 MG in 0.9% Sodium Chloride 50 ML IV SCH (15:13)
--- NOTE | 2017-02-17 15:17 | PCM.PNMED ---
Subjective Date of Service Feb 17, 2017 Subjective Denies any new issues/complaints. Pain well controlled. Exam Vital Signs Vital Sign - Last Date Time Temp Pulse Resp B/P Pulse Ox O2 Delivery O2 Flow Rate FiO2 02/17/17 09:52 36.6 81 18 101/59 97 Room Air 02/16/17 19:53 8.00 Intake and Output 02/16/17 02/16/17 02/17/17 Cumulative From/Thru 15:00 23:00 07:00 02/15/17 01:47 - 02/17/17 06:17 Intake Total 1486 ml 357 ml 5739 ml Output Total 1800 ml 5750 ml Balance -314 ml 357 ml -11 ml Intake Oral 800 ml 2550 ml IV Total 686 ml 357 ml 3189 ml Output Urine Total 1800 ml 5700 ml Estimated Blood Loss 50 ml # Bowel Movements 0 Exam General: Alert, Cooperative, No Acute Distress Head: Normal Eyes: Scleral Anicteric Nose: Mucous Membr Moist/[place] Mouth: Mucous Membr Moist/[place] Neck: Supple Chest & Lungs: Chest Wall Normal, Clear to auscultation bilat Cardiovascular: Regular Rate/Rhythm Abdomen: Non-tender, Non-distended, Normoactive bowel tones, Soft Extremities: No cyanosis/clubbing/edema bilat, Other (lef foot in dressing. dry , clean, intact) Neurological: Grossly Neurologically Intact, Normal Speech IVs and Medications Medications Reviewed: Medications were reviewed in detail Lab and Diagnostics Result Diagram: 02/16/17 0330 02/17/17 0625 X-Rays, CTs and MRIs Date of Service: 02/15/17 0245 PROCEDURE: X-RAY LEFT FOOT COMPLETE, MINIMUM THREE VIEWS ([id number]) IMPRESSION: 1. Possible osteomyelitis in the distal phalanx of the left first toe with surrounding soft tissue swelling and subcutaneous emphysema. 2. Interval distal second metatarsal resection with indistinctness of the remaining bone also concerning for osteomyelitis. 3. Findings could be confirmed with a forefoot MRI with and without contrast if clinical exam is unclear. Dictated by: Ghassan Hickey M.D. on 02/15/2017 at 8:12 Approved by: Ghassan Hickey M.D. on 02/15/2017 at 8:15 Date of Service: 02/15/17 0245 PROCEDURE: X-RAY CHEST ONE VIEW, PORTABLE ([id number]) IMPRESSION: No radiographic evidence of acute cardiopulmonary pathology. Dictated by: Ghassan Hickey M.D. on 02/15/2017 at 8:15 Approved by: Ghassan Hickey M.D. 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 # Acute wet gangrene of left foot with possible associated osteomyelitis, present on admission - Post partial first ray amputation, staged, packed open with wide debridement of soft tissue and tendon and fascia to the level of the tarsal navicular, left foot on 02/15/17 - Appreciate podiatry consult. Will followup with recs. Patient wants to discuss the option of transmetatarsal amputation with his this afternoon before making final decision. - Continue Zosyn and Vancomycin (dosing per pharmacy) started in ED - Followup pending cultures. - ID consulted today. Will followup with recs. - Continue with supportive care # Diabetes Mellitus, Type 2, with peripheral nephropathy. Uncontrolled. Chronic. - HgA1C 12 - Hold home Metformin. - Lispro correctional scale in the hospital. Increase to medium dose - Increased home dose Lantus from 12 to 14 on 02/16 and will increase to 16 units hs tonight. # Acute hyponatremia, present on admission. - Improved with IV fluid - Followup repeat labs in AM # History of opioid abuse, presume stable. - Convert home Suboxone to Subutex per pharmacy - Motrin prn for pain - May give additional Subutex prn for pain # Anxiety, chronic, presume stable. - Continue home Citalopram. Dispo: 2-3 days GI Prophylaxis: Not indicated VTE Prophylaxis: Sub-Q Heparin (Unfractionated) Resuscitation Status: CPR: Attempt Resuscitation (discussed and verified with patient) Duc Vaz Feb 17, 2017 15:17
--- NOTE | 2017-02-17 15:59 | NUR ---
NOTES PT IS ALERT & ORIENTED X4 USING BEDSIDE URINAL SUCCESSFULLY. EATING AND DRINKING WELL AND IS KEEPING HIMSELF DISTRACTED WITH TELEVISION SHOWS. PAIN LEVEL OF 5/10 WITH 4 BEING THE GOAL PAIN LEVEL. HE STATED HE WAS SURPRISED THE INFECTION IN HIS LEFT GREAT TOE MOVED SO QUICKLY IT WAS ONLY A BLISTER A SHORT WHILE BEFORE IT NEEDED TO BE OPERATED ON. 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 MD TO REASSESS TO DETERMINE IF MORE SURGERY WILL BE REQUIRED. WILL CONTINUE TO MONITOR.
[2017-02-17 18:10] VITALS: RESP 18
[2017-02-17] MEDS: Insulin GLARgine 100 Unit/mL Syringe SUBQ SCH (21:09)
--- NOTE | 2017-02-17 21:24 | CONS ---
[address] [address] CONSULTATION REPORT PATIENT: NEGRA MACDONALD : 1975 MR#: [id number] ADMIT: 02/15/2017 JOB ID: [id number] DATE OF SERVICE: 02/17/2017 REASON FOR FOLLOWUP: Severe left diabetic foot infection now requiring resection of the great toe as well as 1st ray. HISTORY OF PRESENT ILLNESS: The patient is an unfortunate, 49-year-old gentleman with longstanding poorly controlled diabetes as well as recurrent left foot infections. He is well known to me from an admission back in September and October of this year when he had a severe infection of his left foot. At that time, he underwent resection of his necrotic left second toe as well as adjacent necrotic areas. We treated the patient's cultures at that time which grew a combination of group B strep, strep mitis and Bacteroides. He was treated as an inpatient with broad-spectrum antibiotics and was subsequently discharged on IV daptomycin as well as oral Flagyl. It was the opinion of Podiatry that his infection had more or less been completely excised at that time, so he received a short course of ceftriaxone and Flagyl which was followed by dalbavancin IV and ongoing therapy with Augmentin. The patient reports that with this therapy he did quite well and his wound after a difficult start essentially completely healed. On October 08, his CRP, which had been as high as 5.5 in September, dropped all the way to normal at 0.4 and his wound was closing. He was followed by both Podiatry and Plastic Surgery who were very pleased with the progress of his left foot. The patient reports his foot improved so much that he put his boots back on and went back to work at the [employer]. About two weeks ago, he noticed an ulcer had once again developed on the underside of his left great toe and despite his attempting to provide local care for this area, it worsened. He noticed that in addition to an increasingly large ulcer underneath his left great toe, there was increasing drainage of some foul material. Despite these concerns though and problems, he had no fevers, chills, sweats, cough, nausea, vomiting, or any constitutional symptoms and until fairly recently kept on work. He eventually presented to the hospital on February 15 just because of the progressive ulceration and drainage and was admitted and underwent surgery by Dr. Doll. She operated on February 15 which was the day of admission, two days ago, and did a partial 1st ray amputation with debridement of soft tissue and some tendon which was necrotic. She believes that most of the infection was resected and appropriate cultures were sent. Since the time of surgery, the patient has been improved and he again reports postoperatively no fevers, chills, sweats, minimal if any pain in his left foot, and a desire to be discharged relatively soon if possible. 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 The patient also wanted to reiterate he has been drug-free for 15 months. In the past, he smoked heroin but never injected it or any other drug. For the last 15 months, he has not used any illicit drugs. PAST MEDICAL HISTORY: 1. Diabetes mellitus with poor control. 2. Hypertension. 3. History of smoking heroin, but now 15 months ago and none recently. 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 Does not drink alcohol and quit heroin now 15 months ago. He has never smoked cigarettes. He lives in [place] with his family. FAMILY HISTORY: Negative for TB in 1st degree relatives. REVIEW OF SYSTEMS: The patient has no headache, no visual change. No sore throat, cough, shortness of breath or chest pain. He denies nausea, vomiting, or diarrhea. Denies dysuria, urgency, frequency or diarrhea. He has no problems with his opposite foot and notes minimal pain in his left foot. Remainder of the review of systems is negative. PHYSICAL EXAMINATION: Reveals an afebrile gentleman. He has been afebrile since admission on the , currently 36.6, pulse 81, respiratory rate 18, blood pressure 101/59. He is in no acute distress. Examination of the head is unremarkable. Eyes without conjunctivitis. Nose normal. Oral cavity: No thrush or hairy leukoplakia. Neck is supple. Lungs essentially clear. Cardiac tones: Regular rate and rhythm without murmur. Abdomen: Soft, nontender. No abnormalities encountered. He does not have a Lozada catheter. Does not have suprapubic fullness. No inguinal adenopathy is noted. His left foot is reasonably normal except for diminished sensation. His right foot is wrapped in a large postop dressing and it is clear that the medial part of the foot including the 1st and 2nd toes is missing but otherwise I cannot appreciate any detail with this operative dressing still in place. No synovitis is noted. No skin rash. He is neurologically otherwise intact except for the neuropathy. LABORATORIES: Include white count 12,000 when he came in, now 9000, basically normal on the differential, however. Sed rate was 97 on readmission. CRP not done. Creatinine 0.74. Urinalysis was negative. HIV and hep C negative. Micro studies from the last admission in late September, as mentioned the foot grew group B strep, strep mitis and Bacteroides. The blood cultures back then were negative. Now we have negative blood cultures from February 15 and a culture of the foot debridement area growing Staph aureus, for which we await susceptibilities, as well as strep anginosus which is exquisitely sensitive to all tested antibiotics including penicillin. IMAGING: Includes a chest x-ray done on the that showed no infiltrate. An x-ray of the foot done on the showed probable osteomyelitis in the left great toe with air also seen. There was also concern about osteo in the left distal 2nd metatarsal area. Also notable in this picture is his hemoglobin A1c which is now 12. IMPRESSION: This is a very unfortunate younger man with underlying diabetes who has had a great deal of problem with his left foot over the past several months. 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 Regrettably, he has now developed additional infection of his left great toe as well as perhaps some recrudescent infection in the left 2nd distal metatarsal and has now required additional debridement and surgery. Podiatry is currently recommending that he undergo a full TMA on the left, but the patient is not certain he wishes to proceed. With respect to micro, we have some new organisms here including Staph aureus as well as strep constellatus. Currently, the patient is receiving vancomycin and Zosyn which I do not like because of its severe nephrotoxic potential in a poorly controlled diabetic such as this. RECOMMENDATIONS: 1. Will discontinue the vancomycin he is receiving now as he is receiving over 4 g per day which is hazardous when it is combined with the Zosyn certainly. We will use daptomycin for MRSA coverage basically until we have back our susceptibility testing on the Staph aureus. 2. Will continue to closely follow this patient with you with respect to the decision by Podiatry as that will obviously influence what we do on an outpatient basis. 3. Whether or not the patient could safely have a PICC line is unclear to me. He adamantly states on this and prior admissions he has never used intravenous drugs and is very opposed to the use of that. He notes on this admission as he has on prior admissions that he used to smoke heroin, but it has been over a year since he did that and he is at no risk for manipulation of a home IV. 4. Whether or not we will send the patient home with a PICC line or have him come back daily to the [facility] or even use oral antibiotics depends on what Podiatry decides to do in terms of treating his infection, but for now will leave him on dapto and Zosyn while we await the final susceptibilities tomorrow.
[2017-02-17 22:00] VITALS: BP 114/68; PULSE 74; RESP 17; O2SAT 98
--- NOTE | 2017-02-17 22:06 | PCM.PNPOD ---
Subjective Date of Service: Feb 17, 2017 Visit Information: Reason for Visit Diabetes, Left Gangrenous Foot Surgery/Surgery Date Partial 1st ray amputation, Feb 15, 2017 Post-Op Day # 2 Date of Admission: Feb 15, 2017 at 05:20 Subjective: Patient seen at dinner time. No complaints. He spoke with Dr. Park who agreed with my plan to proceed with a transmetatarsal amputation given his history of reulceration and infections. He states understanding of necessary postop follow up. Postop General: No Complaints Gastrointestinal: Good Appetite Pain Management: PO Neurological: Numbness (peripheral neuropathy) Postop Activity: Ambulates with Assist Device Objective Vital Sign - Last Date Time Temp Pulse Resp B/P Pulse Ox O2 Delivery O2 Flow Rate FiO2 02/17/17 18:10 18 Room Air 02/17/17 14:00 36.7 72 100/71 98 02/16/17 19:53 8.00 Intake and Output 02/16/17 02/16/17 02/17/17 Cumulative From/Thru 15:00 23:00 07:00 02/15/17 01:47 - 02/17/17 06:17 Intake Total 1486 ml 357 ml 5739 ml Output Total 1800 ml 5750 ml Balance -314 ml 357 ml -11 ml Intake Oral 800 ml 2550 ml IV Total 686 ml 357 ml 3189 ml Output Urine Total 1800 ml 5700 ml Estimated Blood Loss 50 ml # Bowel Movements 0 Result Diagram: 02/16/17 0330 02/17/17 0625 Lab Test 02/15/17 03:25 02/15/17 05:15 02/16/17 03:30 02/17/17 06:25 Erythrocyte Sedimentation Rate 97mm/hr (0-15) Hematology Comments Prothrombin Time 11.4sec (8.1-12.5) Prothromb Time International Ratio 1.06ratio Activated Partial Thromboplast Time 27.5sec (22.8-33.0) Hemoglobin A1c 12.0% (4.8-5.6) Lactic Acid Level 1.0mmol/L (0.4-2.0) Phosphorus Level 2.7mg/dL (2.5-4.9) Magnesium Level 1.8mg/dL (1.6-2.6) Total Bilirubin 0.3mg/dL (0.0-1.2) Aspartate Amino Transf (AST/SGOT) 20U/L (0-50) Alanine Aminotransferase (ALT/SGPT) 19U/L (0-44) Alkaline Phosphatase 137U/L (25-150) Troponin T 0.010ug/L (0.0-0.011) Pro-B-Type Natriuretic Peptide 154pg/mL (0-86) Total Protein 8.7g/dL (6.4-8.4) Albumin 3.3g/dL (3.4-5.0) Urine Color Yellow (YELLOW) Urine Appearance Clear (CLEAR,HAZY) Urine pH 6.0 (5.0-8.0) Urine Specific [place] 1.005 (1.003-1.035) Urine Protein Negativemg/dL (NEG,TRACE) Urine Glucose (UA) 500mg/dL (NEGATIVE) Urine Ketones Negativemg/dL (NEGATIVE) Urine Occult Blood Trace (NEGATIVE) Urine Nitrite Negative (NEGATIVE) Urine Bilirubin Negative (NEGATIVE) Urine Urobilinogen 1.0mg/dL (NORMAL) Urine Leukocyte Esterase Negative (NEGATIVE) Urine RBC 0-2/hpf (0-2) Urine WBC 0-5/hpf (0-5) Urine Epithelial Cells Few/hpf (NONE-MOD) Urine Crystals None seen (NONE SEEN) Urine Bacteria None/hpf (NONE-FEW) Urine Hyaline Casts None/lpf (NONE) Urine Granular Casts None seen (NONE SEEN) Urine Waxy Casts None seen (NONE SEEN) Urine Red Blood Cell Casts None seen (NONE SEEN) Urine White Blood Cell Casts None seen (NONE SEEN) Urine Mucus None seen (None Seen) Urine Trichomonas None seen (NONE SEEN) Urine Yeast None (NONE SEEN) Urinalysis Comment None Urine Culture Reflexed Not indicated White Blood Count 9.0th/mm3 (3.8-10.1) Red Blood Count 3.99mil/mm3 (4.40-5.80) Hemoglobin 9.7g/dL (13.8-17.2) Hematocrit 28.9% (41.0-50.0) Mean Corpuscular Volume 72.4fL (81-100) Mean Corpuscular Hemoglobin 24.3pg (27.0-35.0) Mean Corpuscular Hemoglobin Concent 33.6% (32.0-37.0) Red Cell Distribution Width 13.5% (12.3-15.4) Platelet Count 513bil/L (150-400) Neutrophils (%) (Auto) 58.5% (40-74) Lymphocytes (%) (Auto) 21.7% (14-46) Monocytes (%) (Auto) 11.3% (4-12) Eosinophils (%) (Auto) 5.8% (0-5) Basophils (%) (Auto) 0.6% (0-3) Vancomycin Level Trough 12.3mcg/mL Sodium Level 133mEq/L (134-144) Potassium Level 5.3mEq/L (3.5-5.2) Chloride Level 99mEq/L (97-108) Carbon Dioxide Level 25mmol/L (18-29) Blood Urea Nitrogen 13mg/dL (6-24) Creatinine 0.74mg/dL (0.76-1.27) Estimat Glomerular Filtration Rate 125mL/min (>59) Glucose Level 253mg/dL (60-99) Calcium Level 8.4mg/dL (8.5-10.1) Exam General: Alert, Oriented X3, Cooperative Lungs: Clear to Auscultation, Normal Air Movement Cardiac: Regular Rate/Rhythm, No Murmurs/Rubs/Gallops Lower Extremities: Right: Edema localized (left forefoot, improved. ) Extremity warm (erythema reduced. ) Lower Extremity Pulses: Palpable: Left Dorsalis Pedis Left Posterior Tibal Right Dorsalis Pedis Right Posterior Tibal Podiatry WOUND : Incision General Appearence: Wound under dressing (No strikethrough, no need for dressing change this evening. ) Surgical Cast or Splint: None Assessment & Plan Problems: (1) Gas gangrene of foot Plan: The wound dressing was left in place. To minimize disturbance of tissue, I will change it once tomorrow and take patient back to the OR in 2 days for definitive Transmetatarsal amputation with Achilles tendon lengthening for the acquired equinus deformity of the forefoot resulting in ulcerations. Dr. Park agrees with the options. He is scheduled for surgery on 02/19/17729. Patient is agreeable. Status: Acute ICD Code: A48.0 VTE Prophylaxis: Sub-Q Heparin (Unfractionated) Glenys Doll DPM Feb 17, 2017 22:06
[2017-02-18] MEDS: Heparin 5,000 Unit/mL Inj SUBQ SCH ×3 (00:38→17:57)
[2017-02-18] MEDS: Piperacillin-Tazo 3.375 Gm Inj 3.375 GM in Dextrose 5% Minibag Plus 50 ML IV SCH ×2 (01:05→09:56)
[2017-02-18 05:24] VITALS: BP 119/78; PULSE 80; RESP 17; O2SAT 97
--- NOTE | 2017-02-18 06:27 | NUR ---
Shift Note Pt. A&O and uses call light appropriately, denies any discomfort this shift, slept most of the night, left foot dressing CDI, prosper wrapped in place and left leg elevated in pillow, VSS afebrile, hourly checks and will continue to monitor.
[2017-02-18 07:40] VITALS: BP 104/68; PULSE 73; RESP 18; O2SAT 95
[2017-02-18] MEDS: Buprenorphine 2 mg SL Tablet SL SCH (08:48)
[2017-02-18] MEDS: Insulin LISPRO Medium-Dose Scale SUBQ SCH ×4 (08:49→21:00)
[2017-02-18] MEDS: DAPTOmycin Inj 750 MG in 0.9% Sodium Chloride 50 ML IV SCH (09:03)
--- NOTE | 2017-02-18 10:26 | PROG NOTE ---
[address] [address] PROGRESS NOTE PATIENT: NEGRA MACDONALD : 1975 MR#: [id number] ADMIT: 02/15/2017 JOB ID: [id number] DATE: 02/18/2017 REASON FOR FOLLOW UP: Severe left diabetic foot infection. INTERVAL HISTORY: The patient has made the decision to go forward with a TMA and that is tentatively scheduled for tomorrow, February 19, 2017. Recall that he recently had debridement of his left foot including removal of the great toe and metatarsal with postop cultures growing MRSA and strep anginosus. He has been on appropriate antibiotics and denies any fevers, chills, or sweats. No nausea, vomiting, or diarrhea. PHYSICAL EXAMINATION: Reveals a comfortable gentleman. Temp 36.6, pulse 80, respiratory rate 17, blood pressure 119/78. He is saturating well on room air and he feels well. His lungs are clear. Abdomen benign. The foot is wrapped in a dressing, which I did not remove as that was just redone and there are already plans for additional amputation tomorrow. LABORATORIES: Include white count not repeated today, was 9000 previously. Creatinine today was done 0.63. Micro studies include nasal swab positive for MRSA as well as the foot culture growing MRSA as well as strep anginosus. IMPRESSION: This patient has had an extensive problem with his left foot and earlier required removal of the second toe and more recently the great toe. To simplify management and care of his foot he is going to undergo the rest of the transmetatarsal amputation tomorrow. At this point, we have clear-cut evidence of osteomyelitis due to methicillin resistant Staphylococcus aureus and Streptococcus anginosus. Tomorrow surgery should remove most if not all the infection, but I think a short course of antibiotics following the amputation is indicated. RECOMMENDATIONS: 1. Will continue with daptomycin for now. 2. The patient should be placed in MRSA isolation. 3. When it is time to be discharged the patient could probably be sent out on either clindamycin 300 q.i.d. or linezolid 600 b.i.d. for a two week or so course assuming that Podiatry confirms that essentially all the infection has been resected. 4. I will be out of town the next 6 days. Return to work February 25, but I can be reached by text or cell phone about this or any other patient. 5. I can see this patient in my clinic March 05, and I think that would be quite reasonable.
--- NOTE | 2017-02-18 13:07 | NUR ---
Pain Pt requesting suboxone be adjusted to home dose which is correct in the med rec. Request made to . Addendum: 02/18/17 at 1746 by DANYELL CHANCE RN New orders received.
--- NOTE | 2017-02-18 14:08 | PCM.PNMED ---
Subjective Date of Service Feb 18, 2017 Subjective Pain controlled. Going for TMA tomorrow Exam Vital Signs Vital Sign - Last Date Time Temp Pulse Resp B/P Pulse Ox O2 Delivery O2 Flow Rate FiO2 02/18/17 07:40 36.8 73 18 104/68 95 Room Air 02/16/17 19:53 8.00 Intake and Output 02/17/17 02/17/17 02/18/17 Cumulative From/Thru 15:00 23:00 07:00 02/15/17 01:47 - 02/18/17 06:35 Intake Total 1674 ml 1204 ml 8617 ml Output Total 4050 ml 1400 ml 47916 ml Balance -2376 ml -196 ml -2583 ml Intake Oral 1172 ml 540 ml 4262 ml IV Total 502 ml 664 ml 4355 ml Output Urine Total 4050 ml 1400 ml 23744 ml Estimated Blood Loss 50 ml # Bowel Movements 0 Exam General: Alert, Cooperative, No Acute Distress Head: Normal Eyes: Scleral Anicteric Nose: Mucous Membr Moist/Braden Mouth: Mucous Membr Moist/Braden Neck: Supple Chest & Lungs: Chest Wall Normal, Clear to auscultation bilat Cardiovascular: Regular Rate/Rhythm Abdomen: Non-tender, Non-distended, Normoactive bowel tones, Soft Extremities: No cyanosis/clubbing/edema bilat, Other (lef foot in dressing. dry , clean, intact) Neurological: Grossly Neurologically Intact, Normal Speech IVs and Medications Medications Reviewed: Medications were reviewed in detail Lab and Diagnostics Result Diagram: 02/16/17 0330 02/18/17 0705 X-Rays, CTs and MRIs Date of Service: 02/15/17 0245 PROCEDURE: X-RAY LEFT FOOT COMPLETE, MINIMUM THREE VIEWS ([id number]) IMPRESSION: 1. Possible osteomyelitis in the distal phalanx of the left first toe with surrounding soft tissue swelling and subcutaneous emphysema. 2. Interval distal second metatarsal resection with indistinctness of the remaining bone also concerning for osteomyelitis. 3. Findings could be confirmed with a forefoot MRI with and without contrast if clinical exam is unclear. Dictated by: Ghassan Hickey M.D. on 02/15/2017 at 8:12 Approved by: Ghassan Hickey M.D. on 02/15/2017 at 8:15 Date of Service: 02/15/17 0245 PROCEDURE: X-RAY CHEST ONE VIEW, PORTABLE ([id number]) IMPRESSION: No radiographic evidence of acute cardiopulmonary pathology. Dictated by: Ghassan Hickey M.D. on 02/15/2017 at 8:15 Approved by: Ghassan Hickey M.D. 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 # Acute wet gangrene of left foot with possible associated osteomyelitis, present on admission - Post partial first ray amputation, staged, packed open with wide debridement of soft tissue and tendon and fascia to the level of the tarsal navicular, left foot on 02/15/17 - Appreciate podiatry consult. Will followup with recs. going for transmetatarsal amputation 02/19 - Continue Zosyn and daptomycin. Vancomycin switched to daptomycin 02/17 - Followup pending cultures. - ID consulted today. Will followup with recs. - Continue with supportive care # Diabetes Mellitus, Type 2, with peripheral nephropathy. Uncontrolled. Chronic. - HgA1C 12 - Hold home Metformin. - Lispro correctional scale in the hospital. Increase to medium dose - Increased home dose Lantus from 12 to 14 on 02/16 and will increase to 17 units hs tonight. # Acute hyponatremia, present on admission. - Improved with IV fluid - Followup repeat labs in AM # History of opioid abuse, presume stable. - Convert home Suboxone to Subutex per pharmacy - Motrin prn for pain - May give additional Subutex prn for pain # Anxiety, chronic, presume stable. - Continue home Citalopram. Dispo: 2-3 days GI Prophylaxis: Not indicated VTE Prophylaxis: Sub-Q Heparin (Unfractionated) Resuscitation Status: CPR: Attempt Resuscitation (discussed and verified with patient) Raul Blake MD Feb 18, 2017 14:08
[2017-02-18 17:10] VITALS: BP 110/70; PULSE 82; RESP 16; O2SAT 95
--- NOTE | 2017-02-18 17:46 | NUR ---
Pain/mobility Pt without complaints of pain this shift. Reports at night pain increases, usually takes extra dose of suboxone. Pt up to BR indep with FWW. Hops, not bearing weight on left foot. +BM
[2017-02-18] MEDS: Buprenorphine 2 mg SL Tablet SL PRN (20:54)
[2017-02-18] MEDS ORDERED: Insulin GLARgine 100 Unit/mL Syringe SUBQ SCH (21:00)
[2017-02-18 21:55] VITALS: BP 112/69; PULSE 79; RESP 17; O2SAT 96
--- NOTE | 2017-02-18 22:14 | PCM.PNPOD ---
Subjective Date of Service: Feb 18, 2017 Visit Information: Reason for Visit Diabetes, Left Gangrenous Foot Surgery/Surgery Date 02/15/17 partial open 1st ray amputation Post-Op Day # 3 Date of Admission: Feb 15, 2017 at 05:20 Hospital Day # Subjective: Patient seen at bedside without complaints. Pain Management: PO (asking for increase in suboxone at night) Postop Activity: Ambulates with Assist Device Objective Vital Sign - Last Date Time Temp Pulse Resp B/P Pulse Ox O2 Delivery O2 Flow Rate FiO2 02/18/17 21:55 36.8 79 17 112/69 96 Room Air 02/16/17 19:53 8.00 Intake and Output 02/17/17 02/17/17 02/18/17 Cumulative From/Thru 15:00 23:00 07:00 02/15/17 01:47 - 02/18/17 06:35 Intake Total 1674 ml 1204 ml 8617 ml Output Total 4050 ml 1400 ml 16172 ml Balance -2376 ml -196 ml -2583 ml Intake Oral 1172 ml 540 ml 4262 ml IV Total 502 ml 664 ml 4355 ml Output Urine Total 4050 ml 1400 ml 14167 ml Estimated Blood Loss 50 ml # Bowel Movements 0 Result Diagram: 02/16/17 0330 02/18/17 0705 Lab Test 02/15/17 03:25 02/15/17 05:15 02/16/17 03:30 02/18/17 07:05 Erythrocyte Sedimentation Rate 97mm/hr (0-15) Hematology Comments Prothrombin Time 11.4sec (8.1-12.5) Prothromb Time International Ratio 1.06ratio Activated Partial Thromboplast Time 27.5sec (22.8-33.0) Hemoglobin A1c 12.0% (4.8-5.6) Lactic Acid Level 1.0mmol/L (0.4-2.0) Phosphorus Level 2.7mg/dL (2.5-4.9) Magnesium Level 1.8mg/dL (1.6-2.6) Total Bilirubin 0.3mg/dL (0.0-1.2) Aspartate Amino Transf (AST/SGOT) 20U/L (0-50) Alanine Aminotransferase (ALT/SGPT) 19U/L (0-44) Alkaline Phosphatase 137U/L (25-150) Troponin T 0.010ug/L (0.0-0.011) Pro-B-Type Natriuretic Peptide 154pg/mL (0-86) Total Protein 8.7g/dL (6.4-8.4) Albumin 3.3g/dL (3.4-5.0) Urine Color Yellow (YELLOW) Urine Appearance Clear (CLEAR,HAZY) Urine pH 6.0 (5.0-8.0) Urine Specific [place] 1.005 (1.003-1.035) Urine Protein Negativemg/dL (NEG,TRACE) Urine Glucose (UA) 500mg/dL (NEGATIVE) Urine Ketones Negativemg/dL (NEGATIVE) Urine Occult Blood Trace (NEGATIVE) Urine Nitrite Negative (NEGATIVE) Urine Bilirubin Negative (NEGATIVE) Urine Urobilinogen 1.0mg/dL (NORMAL) Urine Leukocyte Esterase Negative (NEGATIVE) Urine RBC 0-2/hpf (0-2) Urine WBC 0-5/hpf (0-5) Urine Epithelial Cells Few/hpf (NONE-MOD) Urine Crystals None seen (NONE SEEN) Urine Bacteria None/hpf (NONE-FEW) Urine Hyaline Casts None/lpf (NONE) Urine Granular Casts None seen (NONE SEEN) Urine Waxy Casts None seen (NONE SEEN) Urine Red Blood Cell Casts None seen (NONE SEEN) Urine White Blood Cell Casts None seen (NONE SEEN) Urine Mucus None seen (None Seen) Urine Trichomonas None seen (NONE SEEN) Urine Yeast None (NONE SEEN) Urinalysis Comment None Urine Culture Reflexed Not indicated White Blood Count 9.0th/mm3 (3.8-10.1) Red Blood Count 3.99mil/mm3 (4.40-5.80) Hemoglobin 9.7g/dL (13.8-17.2) Hematocrit 28.9% (41.0-50.0) Mean Corpuscular Volume 72.4fL (81-100) Mean Corpuscular Hemoglobin 24.3pg (27.0-35.0) Mean Corpuscular Hemoglobin Concent 33.6% (32.0-37.0) Red Cell Distribution Width 13.5% (12.3-15.4) Platelet Count 513bil/L (150-400) Neutrophils (%) (Auto) 58.5% (40-74) Lymphocytes (%) (Auto) 21.7% (14-46) Monocytes (%) (Auto) 11.3% (4-12) Eosinophils (%) (Auto) 5.8% (0-5) Basophils (%) (Auto) 0.6% (0-3) Vancomycin Level Trough 12.3mcg/mL Sodium Level 133mEq/L (134-144) Potassium Level 4.8mEq/L (3.5-5.2) Chloride Level 97mEq/L (97-108) Carbon Dioxide Level 23mmol/L (18-29) Blood Urea Nitrogen 11mg/dL (6-24) Creatinine 0.63mg/dL (0.76-1.27) Estimat Glomerular Filtration Rate 150mL/min (>59) Glucose Level 209mg/dL (60-99) Calcium Level 8.8mg/dL (8.5-10.1) Exam General: Alert, Oriented X3, Cooperative Lungs: Clear to Auscultation, Normal Air Movement Cardiac: Regular Rate/Rhythm, No Murmurs/Rubs/Gallops Lower Extremities: Right: Edema localized (left forefoot, improved. ) Extremity warm (erythema reduced. ) Lower Extremity Pulses: Palpable: Left Dorsalis Pedis Left Posterior Tibal Right Dorsalis Pedis Right Posterior Tibal Podiatry WOUND : Wound Location/Description Open left 1st ray amputation, no necrosis, granulating. Surgical Cast or Splint: None Assessment & Plan Problems: (1) Gas gangrene of foot Plan: The wound dressing was replaced with saline moistened gauze, Kerlix, and Juanjo wrap. I will take patient back to the OR tomorrow for definitive Transmetatarsal amputation with Achilles tendon lengthening for the acquired equinus deformity of the forefoot resulting in ulcerations. Dr. Park agrees with the options. He is scheduled for surgery on 02/19/17729. Patient is agreeable. NPO after midnight. Written consent will be completed just before surgery tomorrow. No weightbearing on left foot. Plan is to have a posterior splint on the left lower extremity after surgery. A drain will be used for 24 hours postop, then removed and dressing replaced. Patient will likely be ready for discharge home on Friday. Status: Acute ICD Code: A48.0 VTE Prophylaxis: Sub-Q Heparin (Unfractionated) Glenys Doll DPM Feb 18, 2017 22:14
[2017-02-19] VITALS (12 sets, daily range): BP systolic 10–120; BP diastolic 58–79; PULSE 75–94; RESP 9–22; O2SAT 94–99
[2017-02-19] MEDS: Heparin 5,000 Unit/mL Inj SUBQ SCH ×3 (00:43→17:00)
[2017-02-19] MEDS: Lactated Ringer's 1,000 ML IV SCH ×2 (04:53→07:31)
--- NOTE | 2017-02-19 06:19 | NUR ---
NPO Pt. NPO after midnight for surgery in AM, aware and compliant, Vitals stable, afebrile, uses call light appropriately, hourly checks, will continue to monitor.
--- NOTE | 2017-02-19 06:50 | NUR ---
To OR Pt taken on stretcher for surgery.
--- NOTE | 2017-02-19 06:52 | PCM.HPANE ---
Patient Data Surgeon Admitting Provider:Chase Downs MD Attending Provider:Duc Vaz [facility] Other Provider: Reason for Visit Diabetes, Left Gangrenous Foot Ht/WT & BMI Height (Feet): 6 Height (Inches): 0.00 Weight (Kilograms): 108.070 Body Mass Index 32.27 Allergies Coded Allergies: No Known Allergies (Unverified Allergy, Unknown, 02/15/17) Past Anesthesia History Anesthesia History: Denies:: Abnormal Airway, Anesthesia Reactions, Difficult Intubation Diabetes History Hx Diabetes?: Yes Glycemic Control: Insulin Dependent Current Bedside Blood Glucose: 292 MRSA MRSA: No Medications Hypertension Medication: Yes Home Meds Incl Beta Donaldo: No Reported Medications Hydroxyzine HCl (HydrOXYzine Hcl)50 Mg [id number] Mg PO BID PRN For Anxiety Ref 0 02/15/17 Buprenorphine HCl/Naloxone HCl (Suboxone 12 mg-3 mg Sl Film)1 Each Film6 Each SL BID PRN For Pain Ref 0 02/15/17 Insulin Glargine (Lantus U100 Insulin Vial)100 Unit/Ml Vial12 Unit SUBQ HS #1 VIAL Ref 0 09/27/16 Metformin ER 1,000 Mg Tablet1,000 Mg PO BID Ref 0 09/27/16 Lisinopril 10 Mg [id number] Mg PO DAILY 30 Days Ref 0 09/27/16 Citalopram 40 Mg [id number] Mg PO DAILY 30 Days Ref 0 09/27/16 Buprenorphine HCl/Naloxone HCl (Suboxone 8 mg-2 mg Sl Film)1 Each Film12 Mg ORAL DAILY #7 09/27/16 Discontinued Reported Medications HydrOXYzine HCl 10 Mg [id number] Mg PO BID PRN For Anxiety Ref 0 02/15/17 Discontinued Scripts Metronidazole (Flagyl)500 Mg [id number] Mg PO Q8 #30 TABLET Prov:Nadir Hunt MD 10/02/16 History History of ENT Problems?: No HEENT History: Denies:: Abnormal Airway Cataracts Difficult Intubation Dysphagia Glaucoma Hearing Problem Sinus Problem TMJ Denture Type: None Teeth Condition: Missing Teeth Hx of Heart Problems?: Yes Cardiovascular History: Positive for:: Hypertension Denies:: Cardiac Surgery Chest Pain Congestive Heart Failure Edema Heart Murmur Irregular Heartbeat Pacemaker Thrombophlebitis Hx of Respiratory Problem?: No Respiratory History: Denies:: Asthma COPD Chest Surgery Cough Dyspnea Emphysema Hemoptysis Oxygen Administration Pneumonia Pulmonary Embolism Tuberculosis Use of C-PAP Machine Use of Inhalers / NEBS Hx Neurologic Problems?: No Hx of GI Problems?: No Hx of Problems?: No Male Hx: Denies:: Prostate Problems Scrotal Mass Testicular Surgery Other Skin Pertinent History: left great toe black, open, bleeding Only has big toe and small toe - others have been amputated. right foot has all toes, only tip of 2nd toe amputated Hx Musculoskeletal Problems?: No Hx of Psycho/Social Problems?: Yes Psycho Social History: Positive for:: Anxiety Denies:: Bipolar Disorder Hx Depression Suicide Attempt Hx Surgeries?: Yes (toe amputation, carpel tunnel bilat, testicle abscess, ) Hx Any Other Health Problems?: Yes Other History: Positive for:: Hospitalization (toe amputation, diabetes; cellulitis of testicles) Denies:: Cancer Thyroid Disease History Blood Transfusions: Denies:: Blood Transfuse Reaction (pt prefers to be asked when time arises to need blood transfusion) Blood Transfusions Hx Diabetes: YesBedside Blood Glucose: 292 Hx Alcohol Use: YesAlcoholic Drinks Per Day: 15 months clean and soberHx Substance Use: Yes (History of opioid abuse) Smoking Status: Never Smoker Stop/Bang Treated for Sleep Apnea?: No S-Snoring: Do You Snore Loudly: No T-Tired: feel tired, fatigued: Yes O-Obsered: Observed not breath: No P-Blood Pressure: treated: Yes B- Body Mass Index > 35 kg/m2: No A- Age over 50: No N- Neck Large Circumference: No G- Gender Male: Yes LIDYA Total Score: 3 LIDYA Risk Assessment: High Risk, =/>3 Yes LIDYA Category 4 OutPt Procedure: Yes Risk Assessment Category Category 1A: Patient has history of documented sleep apnea, and HAS NOT received any narcotic, sedative or anesthesia administration during this stay. Category 1B: Patient has history of documented sleep apnea, and HAS received any narcotic , sedative or anesthesia administration during this stay Category 2: Patient has SUSPECTED Obstructive Sleep Apnea, and HAS received any narcotic , sedative or anesthesia administration during this stay. Category 3: Patient has SUSPECTED Obstructive Sleep Apnea and HAS NOT received narcotic, sedative or anesthesia administration during this stay. Category 4: Outpatient in Procedural Areas with known sleep apnea or who screen positive for High Risk via the STOP/BANG questionnaire. High Risk, =/>3 Yes Exam Exam Vital Signs Vital Signs Date Time Temp Pulse Resp B/P Pulse Ox O2 Delivery O2 Flow Rate FiO2 02/19/17 05:02 36.6 75 16 118/76 95 Room Air General Appearance: Alert, Oriented X3, Cooperative, No Acute Distress HEENT/AIRWAY: MP 2 Lungs: Clear to Auscultation, Normal Air Movement Heart: Exam Unremarkable, Regular Rate/Rhythm, No Murmurs/Rubs/Gallops Meds/Labs/Diagnostics Admission Meds Current Medications Lactated Ringer's (Lr) 1,000 ml @ 120 mls/hr Q8H20M IV Last administered on 04:53; Start 02/19/17 at 05:00; Stop 02/19/17 at 13:19 Insulin Glargine (Lantus Insulin Inj) 17 unit HS SUBQ Last administered on 02/18 20:58; Start 02/18/17 at 21:00 Bedside Blood Glucose: 292 Labs Test 02/15/17 03:25 02/15/17 05:15 02/16/17 03:30 02/18/17 07:05 Erythrocyte Sedimentation Rate 97mm/hr (0-15) Hematology Comments Prothrombin Time 11.4sec (8.1-12.5) Prothromb Time International Ratio 1.06ratio Activated Partial Thromboplast Time 27.5sec (22.8-33.0) Hemoglobin A1c 12.0% (4.8-5.6) Lactic Acid Level 1.0mmol/L (0.4-2.0) Phosphorus Level 2.7mg/dL (2.5-4.9) Magnesium Level 1.8mg/dL (1.6-2.6) Total Bilirubin 0.3mg/dL (0.0-1.2) Aspartate Amino Transf (AST/SGOT) 20U/L (0-50) Alanine Aminotransferase (ALT/SGPT) 19U/L (0-44) Alkaline Phosphatase 137U/L (25-150) Troponin T 0.010ug/L (0.0-0.011) Pro-B-Type Natriuretic Peptide 154pg/mL (0-86) Total Protein 8.7g/dL (6.4-8.4) Albumin 3.3g/dL (3.4-5.0) Urine Color Yellow (YELLOW) Urine Appearance Clear (CLEAR,HAZY) Urine pH 6.0 (5.0-8.0) Urine Specific [place] 1.005 (1.003-1.035) Urine Protein Negativemg/dL (NEG,TRACE) Urine Glucose (UA) 500mg/dL (NEGATIVE) Urine Ketones Negativemg/dL (NEGATIVE) Urine Occult Blood Trace (NEGATIVE) Urine Nitrite Negative (NEGATIVE) Urine Bilirubin Negative (NEGATIVE) Urine Urobilinogen 1.0mg/dL (NORMAL) Urine Leukocyte Esterase Negative (NEGATIVE) Urine RBC 0-2/hpf (0-2) Urine WBC 0-5/hpf (0-5) Urine Epithelial Cells Few/hpf (NONE-MOD) Urine Crystals None seen (NONE SEEN) Urine Bacteria None/hpf (NONE-FEW) Urine Hyaline Casts None/lpf (NONE) Urine Granular Casts None seen (NONE SEEN) Urine Waxy Casts None seen (NONE SEEN) Urine Red Blood Cell Casts None seen (NONE SEEN) Urine White Blood Cell Casts None seen (NONE SEEN) Urine Mucus None seen (None Seen) Urine Trichomonas None seen (NONE SEEN) Urine Yeast None (NONE SEEN) Urinalysis Comment None Urine Culture Reflexed Not indicated White Blood Count 9.0th/mm3 (3.8-10.1) Red Blood Count 3.99mil/mm3 (4.40-5.80) Hemoglobin 9.7g/dL (13.8-17.2) Hematocrit 28.9% (41.0-50.0) Mean Corpuscular Volume 72.4fL (81-100) Mean Corpuscular Hemoglobin 24.3pg (27.0-35.0) Mean Corpuscular Hemoglobin Concent 33.6% (32.0-37.0) Red Cell Distribution Width 13.5% (12.3-15.4) Platelet Count 513bil/L (150-400) Neutrophils (%) (Auto) 58.5% (40-74) Lymphocytes (%) (Auto) 21.7% (14-46) Monocytes (%) (Auto) 11.3% (4-12) Eosinophils (%) (Auto) 5.8% (0-5) Basophils (%) (Auto) 0.6% (0-3) Vancomycin Level Trough 12.3mcg/mL Sodium Level 133mEq/L (134-144) Potassium Level 4.8mEq/L (3.5-5.2) Chloride Level 97mEq/L (97-108) Carbon Dioxide Level 23mmol/L (18-29) Blood Urea Nitrogen 11mg/dL (6-24) Creatinine 0.63mg/dL (0.76-1.27) Estimat Glomerular Filtration Rate 150mL/min (>59) Glucose Level 209mg/dL (60-99) Calcium Level 8.8mg/dL (8.5-10.1) Plan Impression Patient chart reviewed, patient interviewed and anesthestic plan with risks, benefits, and alternatives discussed, and informed consent obtained. NPO per Anesth. Guidelines: Yes ASA Physical Status: ASA3 Severe Disease Anesthetic Plan: GA Bene/Risks/Altern/Consents: Yes HP Complete Prior to Induction: Yes Other Sciatic nerve block for post op pain control Ha Lion MD Feb 19, 2017 06:52
[2017-02-19] MEDS: Insulin LISPRO Medium-Dose Scale SUBQ SCH ×4 (08:00→22:44)
[2017-02-19] MEDS ORDERED: Lactated Ringer's 500 ML IV PRN (08:22)
[2017-02-19] MEDS ORDERED: Lactated Ringer's 1,000 ML IV SCH (08:22)
[2017-02-19] MEDS ORDERED: HYDROmorphone 1 mg/mL Inj IVPUSH PRN (08:25)
[2017-02-19] MEDS ORDERED: Dexamethasone 4 mg/mL Inj IVPUSH PRN (08:25)
[2017-02-19] MEDS ORDERED: fentaNYL-PF 50 mCg/mL 2 mL Inj IVPUSH PRN (08:25)
[2017-02-19] MEDS ORDERED: Ondansetron 2 mg/mL 2 mL Inj IVPUSH PRN (08:25)
[2017-02-19] MEDS ORDERED: EPHEDrine Sulfate 50 mg/mL Inj IVPUSH PRN (08:25)
[2017-02-19] MEDS ORDERED: Phenylephrine 10,000 mCg/mL Inj IVPUSH PRN (08:25)
[2017-02-19] MEDS ORDERED: MetoCLOpramide 5 mg/mL 2 mL Inj IVPUSH PRN (08:25)
[2017-02-19] MEDS ORDERED: fentaNYL-PF 50 mCg/mL 2 mL Inj ONE (08:33)
--- NOTE | 2017-02-19 09:26 | PCM.PODPO ---
Podiatry Operative Report Date of Service: Feb 17, 2017 Date of Service Feb 19, 2017 Pre Operative Diagnosis Open wound, status post partial open first ray amputation, left foot Residual partial second ray and third toe amputation stump, left foot Post Operative Diagnosis Open wound, status post partial open first ray amputation, left foot Residual partial second ray and third toe amputation stump, left footWet gangrene, left foot Procedure Transmetatarsal amputation, left foot. Achilles tendon lengthening to compensate for acquired equinus deformity resulting from partial forefoot amputation. Surgeon Surgeon: Glenys Doll DPM Assistants: None Indication for Procedure Wet gangrene, ascending gas in the tissues radiographs, ulceration with active purulent drainage on the plantar aspect of the first metatarsal head. Findings Wet gangrene, ascending gas, purulence, tracking along the flexor hallucis longus tendon, up to the knot of Jan. Degeneration of first metatarsophalangeal joints ligamentous structures. Lateral ulceration along the fifth metatarsal head, not extending to the joint capsule. After partial first ray amputation at the mid portion of the first metatarsal and all surrounding tissue debridement to the medial plantar arch, the infection appeared to be contained. Details of Procedure Patient was identified in the preoperative holding area and brought back to the operating room. He was placed on the operating table in supine position. Anesthesiologist administered a popliteal block in the left lower extremity. Gen. anesthesia was initiated. The left lower extremity was prepped and draped in usual aseptic manner. The timeout protocol was completed in the patient's name and site of surgery confirmed. Patient's left foot was elevated and calf tourniquet inflated to 225 mmHg, making sure that the extension of the erythema has not reached that level. An incision was made through the dorsal skin and distal plantar skin to plan out the amputation flaps with the use of fluoroscopy for guidance to match up the first metatarsal stump with the remaining transmetatarsal level. The remaining fourth and fifth digits as well as partial metatarsals #2, 3, 4, and 5 were resected to match the level of the first metatarsal, using a bone saw. The previously open wound at the first ray was thoroughly debrided with the large curette to create a fresh wound. After thorough debridement, irrigation with normal saline, and release of the calf tourniquet after minutes, the flaps were contoured, bleeding vessels were cauterized, tendons resected back into the soft tissue, and deep vertical retention sutures were placed using 2-0 Prolene. The flap was then closed with gradual tension release using vertical and simple sutures with 3-0 Prolene. The patient's left leg was elevated on a positioner. Two medial and 1 lateral percutaneous incision were made 3-4 cm apart through the center of the Achilles tendon releasing half of the tendon with each one. This was done in the usual percutaneous Z-lengthening technique for Achilles tendon. The equinus deformity was fully resolved with adequate dorsiflexion of the foot found at 10 following the lengthening. Prior to the lengthening the maximum dorsiflexion was -5. The dressing consisted of Velásquez silk, gauze, Kerlix. A TLS drain was placed into the wound exiting dorsally to prevent a hematoma in the transmetatarsal amputation stump. A well-padded posterior splint was applied with the foot at 90 to the leg. The patient was weaned off of general anesthesia and taken to the recovery room with vital signs stable and the vascular status to the left foot appearing intact for wound healing. Bedside dressing changes and drain removal will be performed tomorrow. The patient will likely be ready for discharge on Friday morning. Grafts, Implants: None Complications There were no periprocedural complications identified. Condition Stable Anesthetic Administered: GA Catheters: None Output, Estimated Blood Loss: 20 ([place]) Blood Admin during surgery: No Surgical Cast or Splint: None Surgical Specimen Removed: No Specimen sent to Pathology: No Post Operative Plan The patient will be nonweightbearing on the left foot. It is to be elevated and ice behind the knee. Primary closure is now complete. The posterior splint will remain in place for at least 1 week. The patient can be discharged home on Friday. He will be scheduled to see me in the clinic next week, probably on Friday. At that time, the patient's posterior splint will be converted to a cast. Attending Statement A TLS drain was placed into the left transmetatarsal amputation stump. Glenys Doll DPM Feb 19, 2017 09:26
--- NOTE | 2017-02-19 10:00 | NUR ---
Return from PACU Pt returned to room on stretcher. Able to scoot and transfer self to bed. Pt now in isolation as Nasal swab came back + for MRSA. Care note provided on MRSA to patient at bedside.
[2017-02-19] MEDS: DAPTOmycin Inj 750 MG in 0.9% Sodium Chloride 50 ML IV SCH (10:12)
[2017-02-19] MEDS: Buprenorphine 2 mg SL Tablet SL SCH (10:12)
--- NOTE | 2017-02-19 12:50 | PCM.ANEP1 ---
Post Anesthesia PACU Phase 1 Assessment Vital Signs Vital Signs Date Time Temp Pulse Resp B/P Pulse Ox O2 Delivery O2 Flow Rate FiO2 02/19/17 10:20 36.7 79 16 104/65 96 Room Air 02/19/17 10:00 36.8 80 16 112/70 94 Room Air 02/19/17 09:41 94 11 10/67 95 Room Air 02/19/17 09:38 88 14 108/61 97 Room Air 02/19/17 09:32 90 16 109/59 95 Room Air 02/19/17 09:25 81 9 111/59 95 Room Air 02/19/17 09:20 94 17 109/58 99 Simple Mask 10 02/19/17 09:15 37.3 80 22 107/61 98 Simple Mask 10 02/19/17 05:02 36.6 75 16 118/76 95 Room Air Anesthetic Administered: GA Level of Alertness: Awake, talking HOOVER's with Equal Strength: Yes Pain: No Pain Scale Score: 2 Nausea or Vomiting: No CV Function & Hydration Stable: Yes Airway Device: Lungs: Clear to Auscultation, Normal Air Movement PACU Phase 2 Assessment Complications: No Follow up Care: N/A Patient Instructions Provided: Yes Comments None, Mild sensation in sciatic dist as expected with dilute anesthetic block. Pt reports good pain control. Ha Lion MD Feb 19, 2017 12:50
[2017-02-19] MEDS ORDERED: Insulin GLARgine 100 Unit/mL Syringe SUBQ ONE (16:10)
--- NOTE | 2017-02-19 16:12 | PCM.PNMED ---
Subjective Date of Service Feb 19, 2017 Subjective Underwent transmetatarsal amputation. Pain controlled. Exam Vital Signs Vital Sign - Last Date Time Temp Pulse Resp B/P Pulse Ox O2 Delivery O2 Flow Rate FiO2 02/19/17 12:00 36.6 79 16 109/67 98 Room Air 02/19/17 09:20 10 Intake and Output 02/18/17 02/18/17 02/19/17 Cumulative From/Thru 15:00 23:00 07:00 02/15/17 01:47 - 02/19/17 05:41 Intake Total 1588 ml 240 ml 53342 ml Output Total 1800 ml 1600 ml 50809 ml Balance -212 ml -1360 ml -4155 ml Intake Oral 1400 ml 240 ml 5902 ml IV Total 188 ml 4543 ml Output Urine Total 1800 ml 1600 ml 02039 ml Estimated Blood Loss 50 ml # Voids 1 1 # Bowel Movements 1 1 Exam General: Alert, Cooperative, No Acute Distress Head: Normal Eyes: Scleral Anicteric Nose: Mucous Membr Moist/[place] Mouth: Mucous Membr Moist/[place] Neck: Supple Chest & Lungs: Chest Wall Normal, Clear to auscultation bilat Cardiovascular: Regular Rate/Rhythm Abdomen: Non-tender, Non-distended, Normoactive bowel tones, Soft Extremities: No cyanosis/clubbing/edema bilat, Other (lef foot in dressing. dry , clean, intact) Neurological: Grossly Neurologically Intact, Normal Speech IVs and Medications Medications Reviewed: Medications were reviewed in detail Lab and Diagnostics Result Diagram: 02/16/17 0330 02/18/17 0705 X-Rays, CTs and MRIs Date of Service: 02/15/17 0245 PROCEDURE: X-RAY LEFT FOOT COMPLETE, MINIMUM THREE VIEWS ([id number]) IMPRESSION: 1. Possible osteomyelitis in the distal phalanx of the left first toe with surrounding soft tissue swelling and subcutaneous emphysema. 2. Interval distal second metatarsal resection with indistinctness of the remaining bone also concerning for osteomyelitis. 3. Findings could be confirmed with a forefoot MRI with and without contrast if clinical exam is unclear. Dictated by: Ghassan Hickey M.D. on 02/15/2017 at 8:12 Approved by: Ghassan Hickey M.D. on 02/15/2017 at 8:15 Date of Service: 02/15/17 0245 PROCEDURE: X-RAY CHEST ONE VIEW, PORTABLE ([id number]) IMPRESSION: No radiographic evidence of acute cardiopulmonary pathology. Dictated by: Ghassan Hickey M.D. on 02/15/2017 at 8:15 Approved by: Ghassan Hickey M.D. on 02/15/2017 at 8:16 Additional Diagnostics Date of Service Feb 19, 2017 Pre Operative Diagnosis Open wound, status post partial open first ray amputation, left foot Residual partial second ray and third toe amputation stump, left foot Post Operative Diagnosis Open wound, status post partial open first ray amputation, left foot Residual partial second ray and third toe amputation stump, left footWet gangrene, left foot Procedure Transmetatarsal amputation, left foot. Achilles tendon lengthening to compensate for acquired equinus deformity resulting from partial forefoot amputation. Surgeon Surgeon: Glenys Doll DPM Assistants: None Indication for Procedure Wet gangrene, ascending gas in the tissues radiographs, ulceration with active purulent drainage on the plantar aspect of the first metatarsal head. Findings Wet gangrene, ascending gas, purulence, tracking along the flexor hallucis longus tendon, up to the knot of Jan. Degeneration of first metatarsophalangeal joints ligamentous structures. Lateral ulceration along the fifth metatarsal head, not extending to the joint capsule. After partial first ray amputation at the mid portion of the first metatarsal and all surrounding tissue debridement to the medial plantar arch, the infection appeared to be contained. 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 # Acute wet gangrene of left foot with possible associated osteomyelitis, present on admission - Post partial first ray amputation, staged, packed open with wide debridement of soft tissue and tendon and fascia to the level of the tarsal navicular, left foot on 02/15/17 - Appreciate podiatry consult. Will followup with recs. Underwent transmetatarsal amputation 02/19 - Continue Zosyn and daptomycin. Vancomycin switched to daptomycin 02/17.per ID discharge on either clindamycin 300 q.i.d. or linezolid 600 b.i.d. for two weeks -Wound culture growing MRSA, streptococcus and bacteroids -MRSA nares positive,will give bactroban ointment - Continue with supportive care # Diabetes Mellitus, Type 2, with peripheral nephropathy. Uncontrolled. Chronic. - HgA1C 12 - Hold home Metformin. - Lispro correctional scale in the hospital. Increase to medium dose - Increased home dose Lantus from 12 to 14 on 02/16 , increase to 17 units hs , remains uncontrolled. Increase to 20 units at bedtime # Acute hyponatremia, present on admission. - Improved with IV fluid - Followup repeat labs in AM # History of opioid abuse, presume stable. - Convert home Suboxone to Subutex per pharmacy - Motrin prn for pain - May give additional Subutex prn for pain # Anxiety, chronic, presume stable. - Continue home Citalopram. Dispo: 2-3 days GI Prophylaxis: Not indicated VTE Prophylaxis: Sub-Q Heparin (Unfractionated) Resuscitation Status: CPR: Attempt Resuscitation (discussed and verified with patient) Raul Blake MD Feb 19, 2017 16:12
--- NOTE | 2017-02-19 17:05 | NUR ---
Social Work: Brief Note ordered STERILIZATION TECH set up HH, RN for pt. STERILIZATION TECH met with pt at bedside, HH choice list given. Pt states no preference. STERILIZATION TECH will refer pt to HH on 02/20/17 per rotating calendar. STACEY Bryan
--- NOTE | 2017-02-19 17:48 | NUR ---
Pain/blood sugar Pt reports am subuxone tolerable for pain control. Pt concerned over increased blood sugar level 1x dose of extra lantus given per order Pt aware surgery can increase levels.
[2017-02-19] MEDS: Mupirocin 2% 22 Gm Ointment TOPICAL SCH ×2 (18:01→19:40)
[2017-02-19] MEDS ORDERED: Insulin GLARgine 100 Unit/mL Syringe SUBQ SCH (21:00)
[2017-02-19] MEDS: Buprenorphine 2 mg SL Tablet SL PRN (22:37)
[2017-02-20] MEDS: Heparin 5,000 Unit/mL Inj SUBQ SCH ×3 (00:29→17:39)
[2017-02-20 06:04] VITALS: BP 104/66; PULSE 92; RESP 17; O2SAT 97
--- NOTE | 2017-02-20 06:08 | NUR ---
DRAIN TLS drain intact at l. foot. Minimal sanguineous drainage, not much more from previous shift noted.
[2017-02-20] MEDS: Insulin LISPRO Medium-Dose Scale SUBQ SCH ×4 (08:00→22:15)
[2017-02-20] MEDS: Mupirocin 2% 22 Gm Ointment TOPICAL SCH ×2 (08:53→20:44)
[2017-02-20] MEDS: Buprenorphine 2 mg SL Tablet SL SCH (08:53)
[2017-02-20 09:15] VITALS: BP 101/66; PULSE 72; RESP 19; O2SAT 97
[2017-02-20] MEDS: DAPTOmycin Inj 750 MG in 0.9% Sodium Chloride 50 ML IV SCH (09:59)
--- NOTE | 2017-02-20 14:47 | NUR ---
Social Work: Continued d/c planning Data: Pt is on day 5 of hospitalization. EMR reviewed. Pt discussed in multidisciplinary rounds. MD states pt possibly may d/c today pending Podiatry. Podiatry saw pt and pt will likely d/c tomorrow. DIP PAINTER acknowledges MD order for knee scooter. DIP PAINTER discussed with UR specialist, got pricing for knee scooter as no insurance will cover this. DIP PAINTER met with pt and explained that a knee scooter for purchase is $395, one month rental is $150, weekly rental is $40 and moss picker must be at the show room. Pt declined this stating he would rather go with crutches. DIP PAINTER discussed with . DIP PAINTER acknowledges MD order for crutches for pt. MD states he will write prescription for crutches and place on pt's hard chart. DIP PAINTER set up HH with [facility] per rotating calendar, access given. F2F completed by and in DIP PAINTER folder. MD states pt will d/c with POABX at d/c. Assessment: Pt who is independent at baseline, currently capable of most self care requiring HH RN and crutches at d/c. Plan: Pt will D/C home likely tomorrow per with [facility] RN, DIP PAINTER to set up crutches for pt. DIP PAINTER will continue to follow. STACEY Bryan
--- NOTE | 2017-02-20 15:39 | PCM.PNMED ---
Subjective Date of Service Feb 20, 2017 Subjective pain controlled Exam Vital Signs Vital Sign - Last Date Time Temp Pulse Resp B/P Pulse Ox O2 Delivery O2 Flow Rate FiO2 02/20/17 09:15 37.0 72 19 101/66 97 Room Air 02/19/17 09:20 10 Intake and Output 02/19/17 02/19/17 02/20/17 Cumulative From/Thru 15:00 23:00 07:00 02/15/17 01:47 - 02/19/17 19:31 Intake Total 800 ml 1558 ml 84314 ml Output Total 40 ml 2825 ml 89165 ml Balance 760 ml -1267 ml -4662 ml Intake Oral 1440 ml 7342 ml IV Total 800 ml 118 ml 5461 ml Output Urine Total 2825 ml 45035 ml Estimated Blood Loss 40 ml 90 ml # Voids 1 # Bowel Movements 0 1 Exam General: Alert, Cooperative, No Acute Distress Head: Normal Eyes: Scleral Anicteric Nose: Mucous Membr Moist/[place] Mouth: Mucous Membr Moist/[place] Neck: Supple Chest & Lungs: Chest Wall Normal, Clear to auscultation bilat Cardiovascular: Regular Rate/Rhythm Abdomen: Non-tender, Non-distended, Normoactive bowel tones, Soft Extremities: No cyanosis/clubbing/edema bilat, Other (lef foot in dressing. dry , clean, intact) Neurological: Grossly Neurologically Intact, Normal Speech IVs and Medications Medications Reviewed: Medications were reviewed in detail Lab and Diagnostics Result Diagram: 02/16/17 0330 02/18/17 0705 X-Rays, CTs and MRIs Date of Service: 02/15/17 0245 PROCEDURE: X-RAY LEFT FOOT COMPLETE, MINIMUM THREE VIEWS ([id number]) IMPRESSION: 1. Possible osteomyelitis in the distal phalanx of the left first toe with surrounding soft tissue swelling and subcutaneous emphysema. 2. Interval distal second metatarsal resection with indistinctness of the remaining bone also concerning for osteomyelitis. 3. Findings could be confirmed with a forefoot MRI with and without contrast if clinical exam is unclear. Dictated by: Ghassan Hickey M.D. on 02/15/2017 at 8:12 Approved by: Ghassan Hickey M.D. on 02/15/2017 at 8:15 Date of Service: 02/15/17 0245 PROCEDURE: X-RAY CHEST ONE VIEW, PORTABLE ([id number]) IMPRESSION: No radiographic evidence of acute cardiopulmonary pathology. Dictated by: Ghassan Hickey M.D. on 02/15/2017 at 8:15 Approved by: Ghassan Hickey M.D. on 02/15/2017 at 8:16 Additional Diagnostics Date of Service Feb 19, 2017 Pre Operative Diagnosis Open wound, status post partial open first ray amputation, left foot Residual partial second ray and third toe amputation stump, left foot Post Operative Diagnosis Open wound, status post partial open first ray amputation, left foot Residual partial second ray and third toe amputation stump, left footWet gangrene, left foot Procedure Transmetatarsal amputation, left foot. Achilles tendon lengthening to compensate for acquired equinus deformity resulting from partial forefoot amputation. Surgeon Surgeon: Glenys Doll DPM Assistants: None Indication for Procedure Wet gangrene, ascending gas in the tissues radiographs, ulceration with active purulent drainage on the plantar aspect of the first metatarsal head. Findings Wet gangrene, ascending gas, purulence, tracking along the flexor hallucis longus tendon, up to the knot of Jan. Degeneration of first metatarsophalangeal joints ligamentous structures. Lateral ulceration along the fifth metatarsal head, not extending to the joint capsule. After partial first ray amputation at the mid portion of the first metatarsal and all surrounding tissue debridement to the medial plantar arch, the infection appeared to be contained. 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 # Acute wet gangrene of left foot with possible associated osteomyelitis, present on admission - Post partial first ray amputation, staged, packed open with wide debridement of soft tissue and tendon and fascia to the level of the tarsal navicular, left foot on 02/15/17 - Appreciate podiatry consult. Will followup with recs. Underwent transmetatarsal amputation 02/19 - Continue Zosyn and daptomycin. Vancomycin switched to daptomycin 02/17.per ID discharge on either clindamycin 300 q.i.d. or linezolid 600 b.i.d. for two weeks -Wound culture growing MRSA, streptococcus and bacteroids -MRSA nares positive,will give bactroban ointment - Continue with supportive care # Diabetes Mellitus, Type 2, with peripheral nephropathy. Uncontrolled. Chronic. - HgA1C 12 - Hold home Metformin. - Lispro correctional scale in the hospital. Increase to medium dose - Increased home dose Lantus from 12 to 14 on 02/16 , increase to 17 units hs , remains uncontrolled. Increase to 25 units at bedtime # Acute hyponatremia, present on admission. - Improved with IV fluid # History of opioid abuse, presume stable. - Convert home Suboxone to Subutex per pharmacy - Motrin prn for pain - May give additional Subutex prn for pain # Anxiety, chronic, presume stable. - Continue home Citalopram. Dispo:home with HH tomorrow GI Prophylaxis: Not indicated VTE Prophylaxis: Sub-Q Heparin (Unfractionated) VTE Mechanical Devices: Intermittant Pneumatic CD Resuscitation Status: CPR: Attempt Resuscitation (discussed and verified with patient) Raul Blake MD Feb 20, 2017 15:39
[2017-02-20 17:15] VITALS: BP 95/60; PULSE 91; RESP 18; O2SAT 99
--- NOTE | 2017-02-20 17:52 | NUR ---
pain/mobility pt no complaints of pain suboxone effective for control. Indep in room with FWW, NWB TLS drain in place minimal serosang fluid at bottom of tube.
--- NOTE | 2017-02-20 20:14 | PCM.PNPOD ---
Subjective Date of Service: Feb 20, 2017 Visit Information: Reason for Visit Diabetes, Left Gangrenous Foot Surgery/Surgery Date Left TMA 02/19/17 Post-Op Day # 1 Date of Admission: Feb 15, 2017 at 05:20 Subjective: Patient states his pain is well controlled. He is anxious to go home. He has no new complaints. Objective Vital Sign - Last Date Time Temp Pulse Resp B/P Pulse Ox O2 Delivery O2 Flow Rate FiO2 02/20/17 17:15 36.9 91 18 95/60 99 Room Air 02/19/17 09:20 10 Intake and Output 02/19/17 02/19/17 02/20/17 Cumulative From/Thru 15:00 23:00 07:00 02/15/17 01:47 - 02/19/17 19:31 Intake Total 800 ml 1558 ml 11547 ml Output Total 40 ml 2825 ml 45126 ml Balance 760 ml -1267 ml -4662 ml Intake Oral 1440 ml 7342 ml IV Total 800 ml 118 ml 5461 ml Output Urine Total 2825 ml 65617 ml Estimated Blood Loss 40 ml 90 ml # Voids 1 # Bowel Movements 0 1 Result Diagram: 02/16/17 0330 02/18/17 0705 Lab Test 02/15/17 03:25 02/15/17 05:15 02/16/17 03:30 02/18/17 07:05 Erythrocyte Sedimentation Rate 97mm/hr (0-15) Hematology Comments Prothrombin Time 11.4sec (8.1-12.5) Prothromb Time International Ratio 1.06ratio Activated Partial Thromboplast Time 27.5sec (22.8-33.0) Hemoglobin A1c 12.0% (4.8-5.6) Lactic Acid Level 1.0mmol/L (0.4-2.0) Phosphorus Level 2.7mg/dL (2.5-4.9) Magnesium Level 1.8mg/dL (1.6-2.6) Total Bilirubin 0.3mg/dL (0.0-1.2) Aspartate Amino Transf (AST/SGOT) 20U/L (0-50) Alanine Aminotransferase (ALT/SGPT) 19U/L (0-44) Alkaline Phosphatase 137U/L (25-150) Troponin T 0.010ug/L (0.0-0.011) Pro-B-Type Natriuretic Peptide 154pg/mL (0-86) Total Protein 8.7g/dL (6.4-8.4) Albumin 3.3g/dL (3.4-5.0) Urine Color Yellow (YELLOW) Urine Appearance Clear (CLEAR,HAZY) Urine pH 6.0 (5.0-8.0) Urine Specific [place] 1.005 (1.003-1.035) Urine Protein Negativemg/dL (NEG,TRACE) Urine Glucose (UA) 500mg/dL (NEGATIVE) Urine Ketones Negativemg/dL (NEGATIVE) Urine Occult Blood Trace (NEGATIVE) Urine Nitrite Negative (NEGATIVE) Urine Bilirubin Negative (NEGATIVE) Urine Urobilinogen 1.0mg/dL (NORMAL) Urine Leukocyte Esterase Negative (NEGATIVE) Urine RBC 0-2/hpf (0-2) Urine WBC 0-5/hpf (0-5) Urine Epithelial Cells Few/hpf (NONE-MOD) Urine Crystals None seen (NONE SEEN) Urine Bacteria None/hpf (NONE-FEW) Urine Hyaline Casts None/lpf (NONE) Urine Granular Casts None seen (NONE SEEN) Urine Waxy Casts None seen (NONE SEEN) Urine Red Blood Cell Casts None seen (NONE SEEN) Urine White Blood Cell Casts None seen (NONE SEEN) Urine Mucus None seen (None Seen) Urine Trichomonas None seen (NONE SEEN) Urine Yeast None (NONE SEEN) Urinalysis Comment None Urine Culture Reflexed Not indicated White Blood Count 9.0th/mm3 (3.8-10.1) Red Blood Count 3.99mil/mm3 (4.40-5.80) Hemoglobin 9.7g/dL (13.8-17.2) Hematocrit 28.9% (41.0-50.0) Mean Corpuscular Volume 72.4fL (81-100) Mean Corpuscular Hemoglobin 24.3pg (27.0-35.0) Mean Corpuscular Hemoglobin Concent 33.6% (32.0-37.0) Red Cell Distribution Width 13.5% (12.3-15.4) Platelet Count 513bil/L (150-400) Neutrophils (%) (Auto) 58.5% (40-74) Lymphocytes (%) (Auto) 21.7% (14-46) Monocytes (%) (Auto) 11.3% (4-12) Eosinophils (%) (Auto) 5.8% (0-5) Basophils (%) (Auto) 0.6% (0-3) Vancomycin Level Trough 12.3mcg/mL Sodium Level 133mEq/L (134-144) Potassium Level 4.8mEq/L (3.5-5.2) Chloride Level 97mEq/L (97-108) Carbon Dioxide Level 23mmol/L (18-29) Blood Urea Nitrogen 11mg/dL (6-24) Creatinine 0.63mg/dL (0.76-1.27) Estimat Glomerular Filtration Rate 150mL/min (>59) Glucose Level 209mg/dL (60-99) Calcium Level 8.8mg/dL (8.5-10.1) Exam General: Alert, Oriented X3, Cooperative Lungs: Clear to Auscultation, Normal Air Movement Cardiac: Regular Rate/Rhythm, No Murmurs/Rubs/Gallops Lower Extremities: Right: Edema localized (left forefoot, improved. ) Extremity warm (erythema reduced. ) Lower Extremity Pulses: Palpable: Left Dorsalis Pedis Left Posterior Tibal Right Dorsalis Pedis Right Posterior Tibal Podiatry WOUND : Wound Location/Description Left TMA stump incision well coapted, Achilles tendon incisions well coapted. No bleeding through dressing. No swelling, no erythema. No fluctuance. Splint is in good condition and fits well over new dressing. Drain only collected 3ml. Deep layer of dressing shows sanguineous exudate, but already dry. Surgical Cast or Splint: None Assessment & Plan Problems: (1) Gas gangrene of foot Plan: The incisional silk dressing was left in place, new dressing was replaced with gauze, Kerlix, cast padding, well padded posterior splint, and Juanjo wrap. Drain was discontinued. No Weightbearing on left foot, except to balance. He is to use a walker as outpatient as well. No dressing change until next 02/26/2017, 3pm postop visit in my office. Until then, keep clean and dry. Ok to discharge home tomorrow morning from my standpoint. Outpatient Clindamycin 300mg PO, TID for 2 weeks. Status: Acute ICD Code: A48.0 VTE Prophylaxis: Sub-Q Heparin (Unfractionated) Glenys Doll DPM Feb 20, 2017 20:14
[2017-02-20 20:37] VITALS: BP 109/70; PULSE 72; RESP 16; O2SAT 97
[2017-02-20] MEDS: Buprenorphine 2 mg SL Tablet SL PRN (20:44)
[2017-02-20] MEDS ORDERED: Insulin GLARgine 100 Unit/mL Syringe SUBQ SCH (21:00)
[2017-02-21] MEDS: Heparin 5,000 Unit/mL Inj SUBQ SCH ×2 (01:32→09:02)
--- NOTE | 2017-02-21 03:28 | NUR ---
Pain/dressing Pt c/o left leg pain 12/14 and 02/13. Suboxone 6mg-helpful and Motrin 400mg given later on in the shift with little effect, so Tylenol 975mg given and results pending . Dressing to left leg changed by MD and is clean,dry, intact. No direct observation. TLS draining sanguineous fluid. Care ongoing.
[2017-02-21 04:30] VITALS: BP 109/66; PULSE 74; RESP 18; O2SAT 97
--- NOTE | 2017-02-21 05:29 | NUR ---
Pain Pt pain manageable, VSS and he is in good spirits. Pt. to discharge this AM @ 1100. WCTM
[2017-02-21 08:45] VITALS: BP 108/71; PULSE 71; RESP 16; O2SAT 97
[2017-02-21] MEDS ORDERED: Insulin LISPRO 300 Unit/3 mL Inj SUBQ ONE ×2 (08:55)
[2017-02-21] MEDS ORDERED: Insulin GLARgine 100 Unit/mL Syringe SUBQ ONE (08:55)
[2017-02-21] MEDS: DAPTOmycin Inj 750 MG in 0.9% Sodium Chloride 50 ML IV SCH (09:02)
[2017-02-21] MEDS: Insulin LISPRO Medium-Dose Scale SUBQ SCH ×2 (09:12→12:00)
[2017-02-21] MEDS: Buprenorphine 2 mg SL Tablet SL SCH (09:15)
[2017-02-21] MEDS: Mupirocin 2% 22 Gm Ointment TOPICAL SCH (11:01)
--- NOTE | 2017-02-21 11:05 | PCM.DIMED ---
Discharge Instructions Date of Service Feb 21, 2017 Dates of Hospitalization Feb 15, 2017 at 05:20 Discharge Diagnosis Discharge Diagnosis # Acute wet gangrene of left foot with possible associated osteomyelitis, present on admission - Post partial first ray amputation, staged, packed open with wide debridement of soft tissue and tendon and fascia to the level of the tarsal navicular, left foot on 02/15/17 s/p transmetatarsal amputation 02/19 # Uncontrolled Diabetes Mellitus, Type 2, with peripheral nephropathy, Chronic. - HgA1C 12 # Acute hyponatremia, present on admission. # History of opioid abuse, presume stable. # Anxiety, chronic, presume stable. Diet Discharge Diet: Diabetic Activity Discharge Activity: Limited until seen by PCP Call your provider Call your provider for: Fever or Chills, Shortness of breath, Bleeding, Chest pain, Vomitting, Excessive diarrhea, Weakness (unilateral) Patient Instructions Patient Instructions You were hospitalized due to left foot gangrene and underwent transmetatarsal amputation on 02/19 . please continue clindamycin 300 mg four times a day for 2 weeks. please follow up with Dr Doll on February 26 . Your diabetes is very uncontrolled with A1C level of 12 . I Have increased your lantus from 12 units to 25 units at bed time . Please check your glucose 3 times a day and follow up with PCP for furthur insulin adjustment . Please follow up with outpatient diabetes education .Home health for RN for wound care and diabetes/medications follow up 2-3 times a week for 3 weeks . Follow-up Provider: Shiv Bruno MD Follow-up with PCP in: 1 week Provider: Glenys Doll DPM Follow-up in: 1 week (February 26) Mid-level Provider (F9): DIABETIC EDUCATIONROGELIO Follow-up with Mid-level in: 1 week Raul Blake MD Feb 21, 2017 11:05
[2017-02-21] MEDS ORDERED: CLIN-78 PO (11:08)
[2017-02-21] MEDS ORDERED: INSU100I18 SUBQ (11:08)
[2017-02-21] MEDS ORDERED: INSU100V7 SUBQ (11:08)
--- NOTE | 2017-02-21 13:42 | NUR ---
Discharge Patient discharged to private vehicle with female friend driving. All prescriptions, discharge instructions, and follow up appointments gone over with patient and all questions answered. Encouraged good follow up wound care and rigorous blood glucose monitoring at home.
--- NOTE | 2017-02-21 15:33 | NUR ---
Social Work Note: Discharge Data& Assessment: Per in multidisciplinary rounds pt is medically ready for discharge. Rigo Bee III is a 41 year old male admitted on 02/15/2017 for diabetes and left gangrenous foot. Per pt is medically improved and ready to discharge home with home health RN for wound care and P.O antibiotics. DRY KILN OPERATOR HELPER notified [place] with [facility] of pt discharge, F2F previously obtained. Pt privately obtaining his own crutches. No other MD orders identified. Plan: Per pt is medically ready to discharge home via POV with [facility]ER[facility] RN to follow for wound care. [facility] FERNAN[facility] notified. All updated and agreeable to plan. STACEY Boyd
--- NOTE | 2017-02-21 15:35 | PATH ---
SURGICAL PATHOLOGY Attending Physician:Glenys Doll CASE STATUS: Signed Out PATIENT NAME: NEGRA MACDONALD III PID: [id number] : 1975 DATE COLLECTED:02/15/2017 00:00 SPECIMEN: Toe(s), Amputation, Non-Traumatic CLINICAL HISTORY: LEFT FOOT DEEP SPACE INFECTION/GANGRENE 1). LEFT GREAT TOE FINAL DIAGNOSIS: 1.LEFT GREAT TOE, AMPUTATION: CHRONIC ULCERATION, MARKED ACTIVE INFLAMMATION, AND NECROSIS, INVOLVING SKIN AND SUBCUTANEOUS TISSUE. ACUTE OSTEOMYELITIS. NO EVIDENCE OF MALIGNANCY. ICD10 M86.6 GROSS DESCRIPTION: The specimen is received in formalin, labeled with the patient's name, sublabeled as "left great toe", and consists of a disarticulated toe with surrounding tissue (11.1 cm AP, 4.7 cm SI, 4.0 cm ML). The toenail is present. The skin and soft tissue are diffusely green, anaya, black and yellow with multiple open ulcerations and hard desiccated areas. The bone is hard and cannot be sliced with a scalpel. The bone cut surface is michael-pink and porous. Ink code: black-resection margin. Section code: (A-C) skin and soft tissue resection margins, enrollment eligibility representative; (D) bone articular surface; (E-G) soft tissue, enrollment eligibility representative; (H) bone, serially sectioned, enrollment eligibility representative. Note: The bone sections have been decalcified. ([id number]) MICRO DESCRIPTION: See diagnosis. ICD-9 CODES: CPT CODES: 1: 44457, 97867 Electronically Signed Out Annalise Vickers MD [facility] [address], [place] [address] Technical component performed at [facility], [address] [place] [address] [address], [place], [address]
--- NOTE | 2017-02-21 22:15 | PCM.DC.MED ---
Discharge Summary Date of Service Feb 21, 2017 Dates of Hospitalization Date of Hospital Admission Feb 15, 2017 at 05:20 Date of Discharge: Feb 21, 2017 Providers: Admitting Physician: Chase Downs MD Primary Care Physician: Leobardo Varelaagit Attending Physician: Raul Thorpe MD Diagnosis at Time of Discharge Diagnosis at Time of Discharge # Acute wet gangrene of left foot with possible associated osteomyelitis, present on admission - Post partial first ray amputation, staged, packed open with wide debridement of soft tissue and tendon and fascia to the level of the tarsal navicular, left foot on 02/15/17 s/p transmetatarsal amputation 02/19 # Uncontrolled Diabetes Mellitus, Type 2, with peripheral nephropathy, Chronic. - HgA1C 12 # Acute hyponatremia, present on admission. # History of opioid abuse, presume stable. # Anxiety, chronic, presume stable. Consultations ID Dr Domingo podiatry Dr Doll Procedures XRay, CTs & MRIs Date of Service: 02/15/17244 PROCEDURE: X-RAY LEFT FOOT COMPLETE, MINIMUM THREE VIEWS ([id number]) IMPRESSION: 1. Possible osteomyelitis in the distal phalanx of the left first toe with surrounding soft tissue swelling and subcutaneous emphysema. 2. Interval distal second metatarsal resection with indistinctness of the remaining bone also concerning for osteomyelitis. 3. Findings could be confirmed with a forefoot MRI with and without contrast if clinical exam is unclear. Dictated by: Ghassan Hickey M.D. on 02/15/2017 at 8:12 Approved by: Ghassan Hickey M.D. on 02/15/2017 at 8:15 Date of Service: 02/15/17 0245 PROCEDURE: X-RAY CHEST ONE VIEW, PORTABLE ([id number]) IMPRESSION: No radiographic evidence of acute cardiopulmonary pathology. Dictated by: Ghassan Hickey M.D. on 02/15/2017 at 8:15 Approved by: Ghassan Hickey M.D. on 02/15/2017 at 8:16 Other Diagnostics Date of Service Feb 19, 2017 Pre Operative Diagnosis Open wound, status post partial open first ray amputation, left foot Residual partial second ray and third toe amputation stump, left foot Post Operative Diagnosis Open wound, status post partial open first ray amputation, left foot Residual partial second ray and third toe amputation stump, left footWet gangrene, left foot Procedure Transmetatarsal amputation, left foot. Achilles tendon lengthening to compensate for acquired equinus deformity resulting from partial forefoot amputation. Surgeon Surgeon: Glenys Doll DPM Assistants: None Indication for Procedure Wet gangrene, ascending gas in the tissues radiographs, ulceration with active purulent drainage on the plantar aspect of the first metatarsal head. Findings Wet gangrene, ascending gas, purulence, tracking along the flexor hallucis longus tendon, up to the knot of Jan. Degeneration of first metatarsophalangeal joints ligamentous structures. Lateral ulceration along the fifth metatarsal head, not extending to the joint capsule. After partial first ray amputation at the mid portion of the first metatarsal and all surrounding tissue debridement to the medial plantar arch, the infection appeared to be contained. Brief History per HPI 41-year-old man with history of type 2 diabetes with peripheral neuropathy, anxiety, and heroin usage on Suboxone presents complaining of left foot swelling, pain, erythema and drainage. He reports chills but no fever. He was last hospitalized in late September of 2016 with wet gangrene of the second digit of the left foot for which underwent amputation of the 2nd digit of the left foot. He says he was following at the wound care clinic for a while and seemed to be improving. However, he has not followed with wound care clinic or any of his doctors for the past several weeks and over the past couple of weeks to several days he has has new and worsening ulceration of his left foot. Hospital Course 41-year-old man with history of uncontrolled type 2 diabetes with peripheral neuropathy, anxiety, and heroin usage on Suboxone who presents with acute on chronic and worsening left foot ulcer and infection. # Acute wet gangrene of left foot with possible associated osteomyelitis, present on admission - Post partial first ray amputation, staged, packed open with wide debridement of soft tissue and tendon and fascia to the level of the tarsal navicular, left foot on 02/15/17 - Appreciate podiatry consult. Underwent transmetatarsal amputation 02/19 - treated with Zosyn and daptomycin. Vancomycin switched to daptomycin .per ID discharged on clindamycin 300 q.i.d. for two weeks -Wound culture growing MRSA, streptococcus and bacteroids -MRSA nares positive,gave bactroban ointment # Diabetes Mellitus, Type 2, with peripheral nephropathy. Uncontrolled. Chronic. - HgA1C 12 -resume home Metformin. - very difficult to control glucose - Increased home dose Lantus from 12 to 14 on 02/16 , increase to 17 units hs , remains uncontrolled. Increase to 25 units at bed time on discharge with sliding scale.OP diabetic education.counselled on sliding scale # Acute hyponatremia, present on admission. - Improved with IV fluid # History of opioid abuse, presume stable. - Convert home Suboxone to Subutex per pharmacy - Motrin prn for pain - to pain clinic today after discharge # Anxiety, chronic, presume stable. - Continue home Citalopram. Dispo:home with HH for dressing/RN,declined PT Exam Vital Signs (Last) Date Time Temp Pulse Resp B/P Pulse Ox O2 Delivery O2 Flow Rate FiO2 02/21/17 08:45 36.3 71 16 108/71 97 Room Air 02/19/17 09:20 10 Exam General: Alert, Cooperative, No Acute Distress Head: Normal Eyes: Scleral Anicteric Nose: Mucous Membr Moist/Morales-Sanchez Mouth: Mucous Membr Moist/Morales-Sanchez Neck: Supple Chest & Lungs: Chest Wall Normal, Clear to auscultation bilat Cardiovascular: Regular Rate/Rhythm Abdomen: Non-tender, Non-distended, Normoactive bowel tones, Soft Extremities: No cyanosis/clubbing/edema bilat, Other (lef foot in dressing. dry , clean, intact) Neurological: Grossly Neurologically Intact, Normal Speech Test 02/15/17 03:25 02/15/17 05:15 02/16/17 03:30 02/18/17 07:05 Erythrocyte Sedimentation Rate 97mm/hr (0-15) Hematology Comments Prothrombin Time 11.4sec (8.1-12.5) Prothromb Time International Ratio 1.06ratio Activated Partial Thromboplast Time 27.5sec (22.8-33.0) Hemoglobin A1c 12.0% (4.8-5.6) Lactic Acid Level 1.0mmol/L (0.4-2.0) Phosphorus Level 2.7mg/dL (2.5-4.9) Magnesium Level 1.8mg/dL (1.6-2.6) Total Bilirubin 0.3mg/dL (0.0-1.2) Aspartate Amino Transf (AST/SGOT) 20U/L (0-50) Alanine Aminotransferase (ALT/SGPT) 19U/L (0-44) Alkaline Phosphatase 137U/L (25-150) Troponin T 0.010ug/L (0.0-0.011) Pro-B-Type Natriuretic Peptide 154pg/mL (0-86) Total Protein 8.7g/dL (6.4-8.4) Albumin 3.3g/dL (3.4-5.0) Urine Color Yellow (YELLOW) Urine Appearance Clear (CLEAR,HAZY) Urine pH 6.0 (5.0-8.0) Urine Specific [place] 1.005 (1.003-1.035) Urine Protein Negativemg/dL (NEG,TRACE) Urine Glucose (UA) 500mg/dL (NEGATIVE) Urine Ketones Negativemg/dL (NEGATIVE) Urine Occult Blood Trace (NEGATIVE) Urine Nitrite Negative (NEGATIVE) Urine Bilirubin Negative (NEGATIVE) Urine Urobilinogen 1.0mg/dL (NORMAL) Urine Leukocyte Esterase Negative (NEGATIVE) Urine RBC 0-2/hpf (0-2) Urine WBC 0-5/hpf (0-5) Urine Epithelial Cells Few/hpf (NONE-MOD) Urine Crystals None seen (NONE SEEN) Urine Bacteria None/hpf (NONE-FEW) Urine Hyaline Casts None/lpf (NONE) Urine Granular Casts None seen (NONE SEEN) Urine Waxy Casts None seen (NONE SEEN) Urine Red Blood Cell Casts None seen (NONE SEEN) Urine White Blood Cell Casts None seen (NONE SEEN) Urine Mucus None seen (None Seen) Urine Trichomonas None seen (NONE SEEN) Urine Yeast None (NONE SEEN) Urinalysis Comment None Urine Culture Reflexed Not indicated White Blood Count 9.0th/mm3 (3.8-10.1) Red Blood Count 3.99mil/mm3 (4.40-5.80) Hemoglobin 9.7g/dL (13.8-17.2) Hematocrit 28.9% (41.0-50.0) Mean Corpuscular Volume 72.4fL (81-100) Mean Corpuscular Hemoglobin 24.3pg (27.0-35.0) Mean Corpuscular Hemoglobin Concent 33.6% (32.0-37.0) Red Cell Distribution Width 13.5% (12.3-15.4) Platelet Count 513bil/L (150-400) Neutrophils (%) (Auto) 58.5% (40-74) Lymphocytes (%) (Auto) 21.7% (14-46) Monocytes (%) (Auto) 11.3% (4-12) Eosinophils (%) (Auto) 5.8% (0-5) Basophils (%) (Auto) 0.6% (0-3) Vancomycin Level Trough 12.3mcg/mL Sodium Level 133mEq/L (134-144) Potassium Level 4.8mEq/L (3.5-5.2) Chloride Level 97mEq/L (97-108) Carbon Dioxide Level 23mmol/L (18-29) Blood Urea Nitrogen 11mg/dL (6-24) Creatinine 0.63mg/dL (0.76-1.27) Estimat Glomerular Filtration Rate 150mL/min (>59) Glucose Level 209mg/dL (60-99) Calcium Level 8.8mg/dL (8.5-10.1) Discharge Medications Discharge Medications Buprenorphine HCl/Naloxone HCl (Suboxone 8 mg-2 mg Sl Film) 1 Each Film 12 MG ORAL DAILY (Reported) Citalopram (Citalopram) 40 Mg Tablet 40 MG PO DAILY (Reported) Clindamycin (Clindamycin) 300 Mg Capsule 300 MG PO QID Prescribed by: RAUL THORPE MD Insulin Glargine (Lantus U100 Insulin Vial) 100 Unit/Ml Vial 25 UNIT SUBQ HS Prescribed by: RAUL THORPE MD Insulin Lispro (HumaLOG U100 Insulin Pen) 100 Unit/1 Ml Insuln.pen 1 UNIT SUBQ ACHS Blood Sugar Lispro Correction <151 0 units 151-175 1 unit 176-200 2 units 201-225 3 units 226-250 4 units 251-275 5 units 276-300 6 units 301-325 7 units 326-350 8 units 351-375 9 units 376-400 10 units >400 12 units Check blood sugars before meals and at bedtime. Use correction factor only before meals. Prescribed by: RAUL THORPE MD Lisinopril (Lisinopril) 10 Mg Tablet 10 MG PO DAILY (Reported) Metformin ER (Metformin ER) 1,000 Mg Tablet 1,000 MG PO BID (Reported) As needed Buprenorphine HCl/Naloxone HCl (Suboxone 12 mg-3 mg Sl Film) 1 Each Film 6 EACH SL BID PRN PRN For Pain (Reported) Hydroxyzine HCl (HydrOXYzine Hcl) 50 Mg Tablet 50 MG PO BID PRN PRN For Anxiety (Reported) Followup Plan Disposition: home Discharge Diet: Diabetic Discharge Activity: Limited until seen by PCP Patient Instructions You were hospitalized due to left foot gangrene and underwent transmetatarsal amputation on 02/19 . please continue clindamycin 300 mg four times a day for 2 weeks. please follow up with Dr Doll on February 26 . Your diabetes is very uncontrolled with A1C level of 12 . I Have increased your lantus from 12 units to 25 units at bed time . Please check your glucose 3 times a day and follow up with PCP for furthur insulin adjustment . Please follow up with outpatient diabetes education .Home health for RN for wound care and diabetes/medications follow up 2-3 times a week for 3 weeks . Follow-up Provider: Shiv Bruno MD Follow-up with PCP in: 1 week Provider: Glenys Doll DPM Follow-up in: 1 week (February 26) Mid-level Provider: ROGELIO GUTIERREZ Follow-up with Mid-level in: 1 week Time spent > 35 minutes copies to: ROGELIO GUTIERREZ; Shiv Bruno MD; Glenys Doll DPM; Neeraj Domingo MD, Melaku MD Feb 21, 2017 22:15
== END 2017-02-21 13:10 | disposition home health service (06) | DRG 305 ==
LOC: SED 01:42 → MOC 05:20
PROVIDERS: ADMIT Hospitalist; ATTEND Internal Medicine
PROC: 0Y6N0Z9 Detachment at Left Foot, Partial 1st Ray, Open Approach (ICD-10-PCS; 2017-02-15)
PROC: 0Y6N0Z0 Detachment at Left Foot, Complete, Open Approach (ICD-10-PCS; 2017-02-19)
PROC: 0L8W3ZZ Division of Left Foot Tendon, Percutaneous Approach (ICD-10-PCS; principal; 2017-02-19 07:30)
DX: E11.52 Type 2 diabetes mellitus with diabetic peripheral angiopathy with gangrene (principal); E87.1 Hypo-osmolality and hyponatremia; E11.69 Type 2 diabetes mellitus with other specified complication; E11.65 Type 2 diabetes mellitus with hyperglycemia; M86.9 Osteomyelitis, unspecified; I10 Essential (primary) hypertension; Z79.4 Long term (current) use of insulin; Z87.898 Personal history of other specified conditions; Z79.891 Long term (current) use of opiate analgesic; M21.6X2 Other acquired deformities of left foot; B95.62 Methicillin resistant Staphylococcus aureus infection as the cause of diseases classified elsewhere